=== PATIENT | female | born 1975 ===

== ENCOUNTER → 2020-12-10 13:33 | Outpatient (BNVA) | payer OTHER, SELFPAY | PROVIDERS: PCP Internal Medicine; Visit Provider Hospitalist ==

== ENCOUNTER → 2021-01-24 11:00 | Outpatient (REF) | payer OTHER, SELFPAY | LOC: HO.SL 11:00 | PROVIDERS: PCP Internal Medicine; Visit Provider Hospitalist | DX: G47.33 Obstructive sleep apnea (adult) (pediatric) (principal); G43.909 Migraine, unspecified, not intractable, without status migrainosus; I26.99 Other pulmonary embolism without acute cor pulmonale | CPT/HCPCS: 95806 ==

== ENCOUNTER → 2021-04-26 15:25 | Outpatient (BNVA) | payer OTHER, SELFPAY | PROVIDERS: PCP Internal Medicine; Visit Provider Hospitalist ==

== ENCOUNTER 2023-11-10 09:34 | Outpatient (AMB) | payer OTHER, SELFPAY ==
--- NOTE | 2023-11-10 09:40 | A.OFFVIS_ITS ---
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 Her symptoms became significantly worse with severe pleuritic chest discomfort and ended up going to the [facility] Emergency Department. There she did undergo a CT scan of the chest demonstrating multiple pulmonary nodules in the right middle right lower lung zones with pulmonary infarct as well as what appeared to be right ventricular strain. Her echocardiogram demonstrated some degree of comes certain triggers hypertrophy of the left ventricle but her RV apparently was working well. Her pulmonary pressures were not estimated. The patient initially placed on Eliquis although she had significant side effects with fatigue. Ultimately switch over to Xarelto. The Xarelto she has been getting headaches. Although she has had a history of migraines as well. As far as the blood clots is not clear the etiology. The patient denies any recent surgeries or prolonged immobilization or trauma. She did have hormonal therapy with progesterone. This was removed. Fact clear she did have COVID. The patient did have exposure to someone with COVID, but, she tested negative in the ER. She then was tested for antibiotics which are positive but, she was already vaccinated making it difficult to interpret the results. Indeed she is concerned about having lifelong anticoagulation which would be the treatment for unprovoked pulmonary emboli. The patient shortly beyond therapy for a year before start talking about adjusting her therapy. I will request records from [facility] regarding her hypercoagulable workup that she may have had as far as to continue the evaluation. In addition to that the patient has significant migraines. She also has daytime drowsiness. She uses multiple sleep aids with partial resolution of her insomnia. The patient has not had a sleep study. Therefore we will have her undergo a sleep study in order to follow her elevated [place] score of 14/24. And also hopefully if she does have sleep apnea and is treated her significant headaches will improve. Will follow-up after the sleep study. 04/26/2021 the patient is here for a pulmonary follow-up visit. Overall she feels about the same. Still having severe migraines which is very debilitating for her. She is currently working with a migraine specialist. In the meantime she did have a sleep study which was completely normal. She does not have any evidence of any sleep apnea or hypoxia at this time. However, she still has a very hard time sleeping. She has tried multiple sleep aids without any significant improvement. Will try to provide her with a alternative regimen to allow her to have affecting sleep. In the meantime which still waiting for the CTs from [facility] in order to review the images with her. We already had requested them before but it did not arrive so therefore we have called the hospital again to get The images. Once available were reviewed together. For now she continues to use the anticoagulation therapy as this will be lifelong for unprovoked clots. Patient also complains of sinus discomfort and pressure. Unfortunately she does have a blood pressure when she cannot use Sudafed. Will optimize her nasal therapy further at this time. 11/10/2023 the patient is here for a pulmonary follow-up visit. She has multiple complaints experiencing some pleuritic left-sided chest pain. The symptoms seem to be at times moderate to severe. Hard to take a deep breath in. Feels sharp in nature. In addition to that she does get some tightness sensation around the chest. She does use her rescue inhaler with some partial relief. She continues on the Xarelto for the history of blood clots. He has been tolerating the full dose. Sometimes she bruises she does not like that but she understands that she needs to take it. The patient also has been having some difficulty sleeping. She has been having some increased daytime drowsiness. She has also gained weight. [place] score is elevated 02/03. She is scheduled to undergo a sleep study through her primary care. In the meantime we are going to request additional blood work looking for etiologies for pleuritis specially with pleuritic chest pain. The patient also will maximize her respiratory therapy by adding a maintenance inhaler. After the blood work will talk about additional imaging studies. Her last CT scan of the chest was CTA back in 2020 demonstrating resolution of the PE that she had initially. [facility] Medical History (Updated 11/10/23 @ 13:24 by Trevor Rainey MD) Pleuritic chest pain Asthma Insomnia Pulmonary emboli Migraine Social History (System 02/05/23 @ 15:54 by Azalea Horton) Patient Tobacco Use Status: Never used Tobacco Review of Systems Const Reports daytime sleepiness, Reports difficulty sleeping and Reports headache(s) ENT Denies change in voice, Reports headache(s), Denies lip swelling, Denies mouth pain, Reports nasal congestion, Reports nasal discharge and Denies tongue swelling Card Denies palpitations and Reports dyspnea on exertion Resp Reports cough, Reports pain on inspiration, Reports pain with cough and Reports dyspnea on exertion GI Denies abdominal pain Musc Denies no additional complaints Neuro Denies Neuro-related abnormal movements and Reports headache(s) Psych Denies no additional complaints Endo Denies palpitations Leon/Lymph Denies easy bleeding and Denies lymphadenopathy Aller/Immun Denies lip swelling and Denies tongue swelling Physical Exam Vital Signs: Last Vital Signs Pulse 68 11/10/23 09:41 Pulse Ox 98 11/10/23 09:41 Oxygen Delivery Method Room Air 11/10/23 09:41 BMI result Body Mass Index 35.9 Const General: alert Neck Neck: Yes normal visual inspection, Yes full ROM and Yes no lymphadenopathy Chest Chest palpation & inspection: normal inspection of the chest Resp Auscultation: diminished lung sounds Cardio Rate: regular rate Rhythm: regular rhythm Heart sounds: S1 normal heart sound present and S2 normal heart sound present GI Palpation (GI): Soft to palpation and nontender Auscultation: normal bowel sounds Skin General skin exam: rashes and/or lesions noted Assessment & Plan Assessment & Plan (1) Pulmonary emboli: Code(s): I26.99 - Other pulmonary embolism without acute cor pulmonale Category: Medical Qualifiers: Acute cor pulmonale presence: without acute cor pulmonale Chronicity: chronic Pulmonary embolism type: unspecified Qualified Code(s): I27.82 - Chronic pulmonary embolism Plan: the patient has an unprovoked pulmonary emboli therefore the treatment would include lifelong anticoagulation. It is not clear if this was COVID related as her PCR test was negative. The patient does need to have a full hypercoagulable workup although I do not have the work of the may have been already done at [facility]. (2) Insomnia: Code(s): G47.00 - Insomnia, unspecified Category: Medical Qualifiers: Insomnia type: primary Qualified Code(s): F51.01 - Primary insomnia (3) Asthma: Code(s): J45.909 - Unspecified asthma, uncomplicated Category: Medical Qualifiers: Asthma severity: moderate Asthma persistence: persistent Asthma complication type: uncomplicated Qualified Code(s): J45.40 - Moderate persistent asthma, uncomplicated (4) Pleuritic chest pain: Code(s): R07.81 - Pleurodynia Category: Medical Plan start Symbicort DENA as needed start Ambien bloodwork continue anticoagulation ?low dose Xorelto sleep study ordered follow-up in 2- 3 months Orders: Orders Cyclic Citrullinated Peptide Today G43.919 - Migraine, unspecified, intractable, without status migrainosus, I27.82 - Chronic pulmonary embolism, R07.81 - Pleurodynia ANSHU Reflex Titer and Pattern Today G43.919 - Migraine, unspecified, intractable, without status migrainosus, I27.82 - Chronic pulmonary embolism, R07.81 - Pleurodynia Resp Allergy Profile Region I Today G43.919 - Migraine, unspecified, intractable, without status migrainosus, I27.82 - Chronic pulmonary embolism, R07.81 - Pleurodynia, R91.1 - Solitary pulmonary nodule Scleroderma 70 Antibody Today G43.919 - Migraine, unspecified, intractable, without status migrainosus, I27.82 - Chronic pulmonary embolism, R07.81 - Pleurodynia Troponin-I High Sensitivity Today G43.919 - Migraine, unspecified, intractable, without status migrainosus, I27.82 - Chronic pulmonary embolism, R07.81 - Pleurodynia Erythrocyte Sedimentation Rate Today G43.919 - Migraine, unspecified, intractable, without status migrainosus, I27.82 - Chronic pulmonary embolism, R07.81 - Pleurodynia Complete Blood Count Auto Diff Today G43.919 - Migraine, unspecified, intractable, without status migrainosus, I27.82 - Chronic pulmonary embolism, R07.81 - Pleurodynia Basic Metabolic Panel Today G43.919 - Migraine, unspecified, intractable, without status migrainosus, I27.82 - Chronic pulmonary embolism, R07.81 - Pleurodynia Angiotensin Converting Enzyme Today G43.919 - Migraine, unspecified, intractable, without status migrainosus, I27.82 - Chronic pulmonary embolism, R07.81 - Pleurodynia Immunoglobulin E Today G43.919 - Migraine, unspecified, intractable, without status migrainosus, I27.82 - Chronic pulmonary embolism, R07.81 - Pleurodynia Sjogren's Antibodies Today G43.919 - Migraine, unspecified, intractable, without status migrainosus, I27.82 - Chronic pulmonary embolism, R07.81 - Pleurodynia D Dimer High Sensitivity Today G43.919 - Migraine, unspecified, intractable, without status migrainosus, I27.82 - Chronic pulmonary embolism, R07.81 - Pleurodynia Medications: New budesonide-formoterol 160-4.5 mcg/actuation (Symbicort) 2 puffs inhalation BID 10.2 grams 11RF 30 days J44.89 - Other specified chronic obstructive pulmonary disease Refilled zolpidem 10 mg PO BEDTIME PRN 30 tabs 3RF sleep 30 days Coding Level of Care Code Est Pt Level 4 (58244) Diagnoses Chronic pulmonary embolism without acute cor pulmonale, unspecified pulmonary embolism type I27.82 Acute cor pulmonale presence: without acute cor pulmonale Chronicity: chronic Pulmonary embolism type: unspecified Primary insomnia F51.01 Insomnia type: primary Moderate persistent asthma without complication J45.40 Asthma severity: moderate Asthma persistence: persistent Asthma complication type: uncomplicated Pleuritic chest pain R07.81 Time Spent (min) 20
[2023-11-10 09:41] VITALS: PULSE 68; O2SAT 98; BMI 35.9
== END 2023-11-10 10:07 | disposition home or self-care (01) ==
PROVIDERS: PCP Internal Medicine; Visit Provider Hospitalist
DX: I27.82 Chronic pulmonary embolism (principal); F51.01 Primary insomnia; J45.40 Moderate persistent asthma, uncomplicated; R07.81 Pleurodynia
CPT/HCPCS: 99214

== ENCOUNTER → 2023-11-10 09:34 | Outpatient (BNVA) | payer OTHER, SELFPAY | PROVIDERS: PCP Internal Medicine; Visit Provider Hospitalist | DX: I27.82 Chronic pulmonary embolism (principal); F51.01 Primary insomnia; J45.40 Moderate persistent asthma, uncomplicated; R07.81 Pleurodynia; Z79.01 Long term (current) use of anticoagulants | CPT/HCPCS: 99212 ==

== ENCOUNTER 2024-02-01 13:00 | Outpatient (REF) | payer OTHER, SELFPAY ==
[2024-02-01 13:29] LABS: MANUAL DIFF FLAG NO
[2024-02-01 13:42] LABS: D Dimer High Sensitivity 153 NG/ML
[2024-02-01 14:04] LABS: Basophils Percent Auto 0.1 % (0-2); Eosinophils Absolute Auto 0.1 X10*3/uL (0.0-0.4); Eosinophils Percent Auto 0.9 % (0-4); Hematocrit 41.8 % (37.0-47.0); Hemoglobin 13.8 g/dl (12.0-16.0); Imm Gran Abs Auto 0.03 X10*3/uL (0.00-0.03); Imm Gran Pct Auto 0.3 % (0.0-0.4); Lymphocytes Absolute Auto 2.8 X10*3/uL (1.2-4.9); Mean Corpuscular Hemoglobin 29.7 pg (27.0-33.0); Mean Corpuscular Volume 89.9 fL (80.0-98.0); Mean Platelet Volume 10.8 fL (9.4-12.3); Monocytes Percent Auto 10.9 % (2-11); Neutrophils Absolute Auto 5.2 x10*3/uL (2.0-8.3); Neutrophils Percent Auto 56.8 % (45-73); Platelet Count 185 X10*3/uL (160-400); Red Blood Count 4.65 X10*6/uL (4.20-5.50); Red Cell Distribution Width 14.6 % (11.0-16.0); White Blood Count 9.1 X10*3/uL (4.8-10.8)
[2024-02-01 14:55] LABS: Erythrocyte Sedimentation Rate 6 MM/HR (0-20)
[2024-02-01 15:08] LABS: Anion Gap 11 (12-20); Blood Urea Nitrogen 11 mg/dL (9-16); Calcium 8.7 mg/dL (8.4-10.2); Carbon Dioxide 22 mmol/L (22-29); Chloride 112 mmol/L (96-108); Estimated Glomerular Filt Rate 52; Glucose Random 96 mg/dL (60-115); Potassium 3.9 mmol/L (3.3-5.1); Sodium 141 mmol/L (135-145)
[2024-02-01 15:20] LABS: Troponin-I High Sensitivity < 2.7 ng/L (<3.5-17.0)
[2024-02-02 13:57] LABS: Class Alternaria alternata 0; Class Aspergillus fumigatus 0; Class Bermuda Grass 0; Class Birch 0; Class Cat Dander 0; Class Cladosporium herbarum 0; Class Cockroach 0/1; Class Common Ragweed 4; Class Cottonwood 0; Class Derm. pterony 0/1; Class Dermatophagoides farinae 0/1; Class Dog Dander 0; Class Elm 0/1; Class Maple Box Elder 1; Class Mountain Cedar 0; Class Mouse Urine Protein 0; Class Mugwort 0; Class Oak 0; Class Penicillium crysogenum 0; Class Rough Pigweed 0; Class Sheep Sorrel 0; Class Sycamore 0; Class Timothy Grass 0; Class Walnut Tree 0/1; Class White Ash 1; Class White Mulberry 0; D001 IgE D pteronyssinus 0.13 kU/L; D002 - IgE D farinae 0.13 kU/L; E001 - IgE Cat Dander <0.10 kU/L; E005 - IgE Dog Dander <0.10 kU/L; E072-IgE Mouse Urine <0.10 kU/L; G002 IgE Bermuda Grass <0.10 kU/L; G006 - IgE Timothy Grass <0.10 kU/L; I006-IgE Cockroach, German 0.14 kU/L; Immunoglobulin E 106 kU/L (<OR=114); M001 IgE Penicillium chrysogen <0.10 kU/L; M002 - IgE Cladosporium herbar <0.10 kU/L; M003 - IgE Aspergillus fumigat <0.10 kU/L; M006 - IgE Alternaria alternat <0.10 kU/L; T001 IgE Maple/Box Elder 0.69 kU/L; T003 IgE Common Silver Birch <0.10 kU/L; T006 - IgE Cedar, Mountain <0.10 kU/L; T007 - IgE Oak, White <0.10 kU/L; T008 IgE Elm, American 0.18 kU/L; T010 - IgE Walnut 0.13 kU/L; T011 - IgE Maple Leaf Sycamore <0.10 kU/L; T014 - IgE Cottonwood <0.10 kU/L; T015 - IgE Ash, White 0.39 kU/L; T070 - IgE White Mulberry <0.10 kU/L; W006 - IgE Mugwort <0.10 kU/L; W014 IgE Pigweed, Common <0.10 kU/L; W018 IgE Sheep Sorrel <0.10 kU/L
[2024-02-02 14:19] LABS: Antibody to SS-A Antigen <1.0 NEG AI (<1.0 NEG); Antibody to SS-B Antigen <1.0 NEG AI (<1.0 NEG); Scleroderma 70 Antibody <1.0 NEG AI (<1.0 NEG)
[2024-02-09 03:54] LABS: Angiotensin Converting Enzyme 22.6 U/L (9-67)
[2024-02-11 10:50] LABS: Anti Nuclear Antibody Screen NEGATIVE
[2024-02-16 10:38] LABS: Cyclic Citrullinated Peptide <16
== END 2024-02-01 13:01 | disposition home or self-care (01) ==
LOC: HO.LAB 13:00
PROVIDERS: PCP Internal Medicine; Visit Provider Hospitalist
DX: R07.81 Pleurodynia (principal); I27.82 Chronic pulmonary embolism; G43.919 Migraine, unspecified, intractable, without status migrainosus; R91.1 Solitary pulmonary nodule
CPT/HCPCS: 36415; 80048; 82164; 82785; 84484; 85025; 85379; 85652; 86003; 86038; 86200; 86235

== ENCOUNTER 2024-02-16 08:23 | Outpatient (AMB) | payer OTHER, SELFPAY ==
[2024-02-16 08:28] VITALS: BP 130/72; PULSE 97; O2SAT 100
--- NOTE | 2024-02-16 08:28 | MHC.OFFVIS ---
Vital Signs 02/16/24 08:28 Weight 211 lb 10.3 oz BP 130/72 Blood Pressure Location Lt brachial Position Sitting Pulse 97 Pulse Source Pulse Oximeter Pulse Oximetry (%) 100 Oxygen Delivery Method Room Air Intake Visit Reasons: asthma Allergies No Known Allergies Allergy (Unverified 02/16/24 08:31) Medication List - Last Reconciled 02/16/24 by Ila Mina LPN azelastine intranasal budesonide-formoterol 160-4.5 mcg/actuation (Symbicort) 2 puffs inhalation BID 30 days duloxetine 60 mg PO DAILY fluticasone propionate 50 mcg/actuation 2 sprays intranasal BID PRN gabapentin 300 mg PO TID hydrochlorothiazide 25 mg PO DAILY metoprolol succinate ER 100 mg PO DAILY rimegepant (Nurtec ODT) 75 mg PO Q OTHER DAY rivaroxaban (Xarelto) 20 mg PO DAILY topiramate 50 mg PO BID trazodone 100 mg PO BEDTIME valacyclovir mg PO verapamil ER 300 mg PO BEDTIME zolpidem 10 mg PO BEDTIME PRN 30 days HPI Comments Details: The patient is a 48-year-old woman with a known history of migraines who apparently was in her usual state health until she started developing some intermittent right-sided chest discomfort the month of March and April. Her symptoms became significantly worse with severe pleuritic chest discomfort and ended up going to the [facility] Emergency Department. There she did undergo a CT scan of the chest demonstrating multiple pulmonary nodules in the right middle right lower lung zones with pulmonary infarct as well as what appeared to be right ventricular strain. Her echocardiogram demonstrated some degree of comes certain triggers hypertrophy of the left ventricle but her RV apparently was working well. Her pulmonary pressures were not estimated. The patient initially placed on Eliquis although she had significant side effects with fatigue. Ultimately switch over to Xarelto. The Xarelto she has been getting headaches. Although she has had a history of migraines as well. As far as the blood clots is not clear the etiology. The patient denies any recent surgeries or prolonged immobilization or trauma. She did have hormonal therapy with progesterone. This was removed. Fact clear she did have COVID. The patient did have exposure to someone with COVID, but, she tested negative in the ER. She then was tested for antibiotics which are positive but, she was already vaccinated making it difficult to interpret the results. Indeed she is concerned about having lifelong anticoagulation which would be the treatment for unprovoked pulmonary emboli. The patient shortly beyond therapy for a year before start talking about adjusting her therapy. I will request records from [facility] regarding her hypercoagulable workup that she may have had as far as to continue the evaluation. In addition to that the patient has significant migraines. She also has daytime drowsiness. She uses multiple sleep aids with partial resolution of her insomnia. The patient has not had a sleep study. Therefore we will have her undergo a sleep study in order to follow her elevated [place] score of 14/24. And also hopefully if she does have sleep apnea and is treated her significant headaches will improve. Will follow-up after the sleep study. 04/26/2021 the patient is here for a pulmonary follow-up visit. Overall she feels about the same. Still having severe migraines which is very debilitating for her. She is currently working with a migraine specialist. In the meantime she did have a sleep study which was completely normal. She does not have any evidence of any sleep apnea or hypoxia at this time. However, she still has a very hard time sleeping. She has tried multiple sleep aids without any significant improvement. Will try to provide her with a alternative regimen to allow her to have affecting sleep. In the meantime which still waiting for the CTs from [facility] in order to review the images with her. We already had requested them before but it did not arrive so therefore we have called the hospital again to get The images. Once available were reviewed together. For now she continues to use the anticoagulation therapy as this will be lifelong for unprovoked clots. Patient also complains of sinus discomfort and pressure. Unfortunately she does have a blood pressure when she cannot use Sudafed. Will optimize her nasal therapy further at this time. 11/10/2023 the patient is here for a pulmonary follow-up visit. She has multiple complaints experiencing some pleuritic left-sided chest pain. The symptoms seem to be at times moderate to severe. Hard to take a deep breath in. Feels sharp in nature. In addition to that she does get some tightness sensation around the chest. She does use her rescue inhaler with some partial relief. She continues on the Xarelto for the history of blood clots. He has been tolerating the full dose. Sometimes she bruises she does not like that but she understands that she needs to take it. The patient also has been having some difficulty sleeping. She has been having some increased daytime drowsiness. She has also gained weight. [place] score is elevated 10/24. She is scheduled to undergo a sleep study through her primary care. In the meantime we are going to request additional blood work looking for etiologies for pleuritis specially with pleuritic chest pain. The patient also will maximize her respiratory therapy by adding a maintenance inhaler. After the blood work will talk about additional imaging studies. Her last CT scan of the chest was CTA back in 2020 demonstrating resolution of the PE that she had initially. 02/16/2024 the patient is here for a follow-up ER visit. Apparently she was in usual state health until for the last 4 weeks when she started developing cramping of her lower extremities. Reasons having some chest discomfort as well. She is also having more shortness of breath and tachycardia. She did talk to her primary care who ordered an ultrasound of her leg. Demonstrating a DVT of her right lower extremity. The patient was placed on a loading dose Xarelto. Apparently prior to that she had come off the Xarelto for a dental procedure. Unfortunately was prolonged because she was going to have another dental procedure. Therefore she spent some time off the Xarelto altogether. Prior to that she was on low-dose. At this point she is on a loading dose of 50 mg twice a day. She will likely go down to 20 mg daily after the 21 days. She will follow-up with her PCP for that. During the office visit we did go for a walking oximetry. The patient's pulse ox was excellent under%. However, heart rate was up to 120 beats per minute with minimal activity. She was visibly dyspneic with dyspnea score of 6/10. Will go ahead and request a CTA with suspicion that she could have had a subacute PE in addition to that we check an echocardiogram to make sure she does not have any pulmonary hypertension due to the PE. She will continue with Xarelto for now. The patient understands that if she is ever going to need a procedures going to have to bridge with Lovenox. Will talk about that further. The patient also will get a repeat ultrasound of the leg in about 6-8 weeks to make sure the cause of gone. For now any elective procedures be on hold. If she needs any semi elective procedures done prior to the clots been gone she can always call and we can work around. She is going to continue with her inhalers. She patient does feel some chest tightness. She is also having a cough. I will send her a Z-Neo to make sure we can improve any evidence of bronchitis. [facility] Medical History (Updated 02/16/24 @ 22:20 by Trevor Rainey MD) DVT (deep venous thrombosis) Pleuritic chest pain Asthma Insomnia Pulmonary emboli Migraine Social History (System 02/05/23 @ 15:54 by Azalea Horton) Patient Tobacco Use Status: Never used Tobacco Review of Systems Const Reports daytime sleepiness and Reports difficulty sleeping ENT Denies change in voice, Denies lip swelling, Denies mouth pain, Reports nasal congestion, Reports nasal discharge and Denies tongue swelling Card Reports chest pain, Reports palpitations and Reports dyspnea on exertion Resp Reports cough, Reports pain on inspiration, Reports pain with cough and Reports dyspnea on exertion GI Denies abdominal pain Musc Denies no additional complaints and Reports muscle cramps Neuro Denies Neuro-related abnormal movements Psych Denies no additional complaints and Reports anxiety Endo Reports palpitations Leon/Lymph Denies easy bleeding and Denies lymphadenopathy Aller/Immun Denies lip swelling and Denies tongue swelling Physical Exam Vital Signs: Last Vital Signs Pulse 97 02/16/24 08:28 BP 130/72 02/16/24 08:28 Pulse Ox 100 02/16/24 08:28 Oxygen Delivery Method Room Air 02/16/24 08:28 Const General: alert Neck Neck: Yes normal visual inspection, Yes full ROM and Yes no lymphadenopathy Chest Chest palpation & inspection: normal inspection of the chest Resp Auscultation: diminished lung sounds Cardio Rate: tachycardic Rhythm: regular rhythm Heart sounds: S1 normal heart sound present and S2 normal heart sound present GI Palpation (GI): Soft to palpation and nontender Auscultation: normal bowel sounds Skin General skin exam: rashes and/or lesions noted Results Reviewed Results Reviewed: LE doppler with +DVT Assessment & Plan Assessment & Plan (1) Pulmonary emboli: Code(s): I26.99 - Other pulmonary embolism without acute cor pulmonale Category: Medical Qualifiers: Acute cor pulmonale presence: without acute cor pulmonale Chronicity: chronic Pulmonary embolism type: unspecified Qualified Code(s): I27.82 - Chronic pulmonary embolism Plan: the patient has an unprovoked pulmonary emboli therefore the treatment would include lifelong anticoagulation. It is not clear if this was COVID related as her PCR test was negative. The patient does need to have a full hypercoagulable workup although I do not have the work of the may have been already done at [facility]. (2) Insomnia: Code(s): G47.00 - Insomnia, unspecified Category: Medical Qualifiers: Insomnia type: primary Qualified Code(s): F51.01 - Primary insomnia (3) Asthma: Code(s): J45.909 - Unspecified asthma, uncomplicated Category: Medical Qualifiers: Asthma complication type: uncomplicated Asthma persistence: persistent Asthma severity: moderate Qualified Code(s): J45.40 - Moderate persistent asthma, uncomplicated (4) Pleuritic chest pain: Code(s): R07.81 - Pleurodynia Category: Medical (5) DVT (deep venous thrombosis): Code(s): I82.409 - Acute embolism and thrombosis of unspecified deep veins of unspecified lower extremity Category: Medical Qualifiers: DVT location: lower extremity Affected thrombotic vein of extremity: peroneal Chronicity: acute Laterality: right Qualified Code(s): I82.451 - Acute embolism and thrombosis of right peroneal vein Plan continue Xorelto loading dose ECHO CTA LE doppler R in 6-8 weeks Symbicort continue Ambien sleep study ordered follow-up in 2- 3 weeks Orders: Orders US venous duplex LE RT 6 Weeks I82.409 - Acute embolism and thrombosis of unspecified deep veins of unspecified lower extremity CA echo transthoracic complete Today I27.20 - Pulmonary hypertension, unspecified CT angio chest PE protocol Today I82.409 - Acute embolism and thrombosis of unspecified deep veins of unspecified lower extremity, R07.81 - Pleurodynia Medications: New azithromycin 500 mg PO DAILY 3 tabs 0RF 3 days Refilled zolpidem 10 mg PO BEDTIME PRN 30 tabs 3RF sleep 30 days Coding Level of Care Code Est Pt Level 5 (12598) Diagnoses Chronic pulmonary embolism without acute cor pulmonale, unspecified pulmonary embolism type I27.82 Acute cor pulmonale presence: without acute cor pulmonale Chronicity: chronic Pulmonary embolism type: unspecified Primary insomnia F51.01 Insomnia type: primary Moderate persistent asthma without complication J45.40 Asthma complication type: uncomplicated Asthma persistence: persistent Asthma severity: moderate Pleuritic chest pain R07.81 Acute deep vein thrombosis (DVT) of right peroneal vein I82.451 DVT location: lower extremity Affected thrombotic vein of extremity: peroneal Chronicity: acute Laterality: right Time Spent (min) 40
== END 2024-02-16 09:05 | disposition home or self-care (01) ==
LOC: HO.HPS 08:23
PROVIDERS: PCP Internal Medicine; Visit Provider Hospitalist
DX: J45.40 Moderate persistent asthma, uncomplicated (principal); I27.82 Chronic pulmonary embolism; F51.01 Primary insomnia; R07.81 Pleurodynia; I82.451 Acute embolism and thrombosis of right peroneal vein
CPT/HCPCS: 99215

== ENCOUNTER → 2024-02-16 08:23 | Outpatient (BNVA) | payer OTHER, SELFPAY | PROVIDERS: PCP Internal Medicine; Visit Provider Hospitalist | DX: R07.81 Pleurodynia (principal); J45.40 Moderate persistent asthma, uncomplicated; I27.82 Chronic pulmonary embolism; I82.451 Acute embolism and thrombosis of right peroneal vein; F51.01 Primary insomnia | CPT/HCPCS: 99212 ==

== ENCOUNTER → 2024-02-17 09:06 | Outpatient (REF) | payer OTHER, SELFPAY ==
--- NOTE | ~2024-02-17 | CT_ITS ---
EXAMINATION: CT angio chest PE protocol CLINICAL INFORMATION: Acute embolism and thrombosis of unspecified deep veins COMPARISON: No pertinent prior studies are available for comparison. TECHNIQUE: Prior to contrast administration, noncontrast localization images were obtained. Subsequently, multidetector volumetric imaging was performed through the chest following the administration of 65 mL Omnipaque 350 intravenous contrast. No contrast reaction reported Sagittal, coronal, and MIP oblique sagittal reformatted images were obtained on the CT workstation, uploaded to PACS, and reviewed. This CT examination was performed using dose optimization techniques as appropriate, variously including the following: * Automated exposure control * Adjustment of mA and/or kV according to patient size (this includes techniques or standardized protocols for targeted exams where dose is matched to indication/reason for exam; i.e. extremities or head) Use of iterative reconstruction technique Total exam dose-length product 139 mGy-cm FINDINGS: QUALITY OF STUDY/CONTRAST BOLUS: Satisfactory. PULMONARY ARTERIES: No central or segmental pulmonary emboli. THORACIC AORTA: No aneurysm or dissection. LUNG: Central airways are patent. Posterior left lower lobe 0.6 cm pulmonary nodule (series #7 axial image 279). Calcified granuloma in the right upper lobe. Dependent subsegmental atelectasis bilaterally. No focal consolidation or mass. No pleural effusion or pneumothorax. MEDIASTINUM: Cardiomegaly without pericardial effusion. No hilar or mediastinal lymphadenopathy. No evidence of septal bowing or right heart strain. CHEST WALL/AXILLA: No axillary or internal mammary lymphadenopathy. VISUALIZED ABDOMEN: Gastric sutures partially visualized. No reflux of contrast into the hepatic veins to suggest increased right heart pressure. OSSEOUS STRUCTURES: No suspicious sclerotic or lytic bone lesions are identified. CT/CT angio chest PE protocol IMPRESSION: 1. No evidence of pulmonary embolism. 2. Posterior left lower lobe 0.6 cm pulmonary nodule. Per the 2017 revised Fleischner Society guidelines, non-contrast chest CT at 6-12 months is recommended. If the nodule is stable at time of repeat CT, then future CT at 18-24 months (from today's scan) is considered optional for low-risk patients, but is recommended for high-risk patients. 3. Cardiomegaly. VTE: negative. Electronically signed by: Shruti Hernandez DO 02/17/2024 05:28 PM [facility] [place]
--- NOTE | 2024-02-17 09:09 | CA_ITS ---
Transthoracic Echocardiogram Patient (Last, First, Middle): Kenia Harman, Gender: Female Date of : 1975 Age: 48 Procedure Date: 02/17/2024 Procedure Type: Transthoracic Echocardiogram Location: OP Height: 162.56 cm Weight: 95.26 kg BSA: 2.00 m2 Heart Rate: bpm BP: 136 / 82 mmHg Quality Analyst: GABRIELA Referring MD: Trevor Rainey MD Story Reader: Declan Bethea MD Symptoms: I27.20 - Pulmonary hypertension, unspecified Study Quality: Adequate ECG Rhythm: Sinus Conclusions: - Essentially normal study Findings Left Ventricle Normal left ventricular size, thickness, and systolic function. The visually estimated ejection fraction is between 60-65%. Spectral Doppler is indicative of a normal filling pattern. Right Ventricle Normal right ventricular cavity size and systolic function. Atria Both atria are normal in size. Interatrial shunt cannot be excluded. Aortic Valve The aortic valve structure and function is likely normal. There is no aortic valve stenosis. There is no aortic valve regurgitation. Mitral Valve Normal mitral valve structure and function. There is trace mitral valve regurgitation. There is no mitral valve stenosis. Pulmonic Valve The pulmonic valve was not well visualized. Tricuspid Valve Likely normal tricuspid valve structure and function. There is trace tricuspid valve regurgitation. The right ventricular systolic pressure is normal. The right ventricular systolic pressure is 23 mmHg. Normal right atrial pressure. There is no evidence of pulmonary hypertension. Great Vessels All visible segments of the aorta are normal in size. The pulmonary artery was not well visualized. There is no dilatation of the ascending aorta measuring 3.20 cm. Venous The inferior vena cava is normal in size and collapses greater than 50% with inspiration. Pericardium/Pleural There is no evidence of pericardial effusion. Prior Study Comparison No prior study available for comparison. Measurements 2D Linear Measurements IVSd: 0.99 0.6-0.9/0.6-1.0 cm LVIDd: 4.48 3.9-5.3/4.2-5.9 cm LVIDd Index: 2.24 2.4-3.2/2.2-3.1 cm/m2 LVIDs: 2.82 2.0-3.6 cm LVPWd: 0.83 0.7-1.1 cm LA Diam: 3.60 2.7-3.8/3.0-4.0 cm LAIDs Index: 1.80 1.5-2.3 cm/m2 LV Mass: 167.28 67-162/88-224 g LV Mass Index: 83.64 43-95/49-115 g/m2 LVOT Diam: 2.00 3.0+(-)1.3 cm 2D Systolic Function EF 4C: 57.40 >55% EF 2C: 69.80 >55% EF BiP: 65.20 >55% Mitral Valve MV Pk E: 0.75 MV PK A: 0.63 MV Decel Time: 255.00 E/A: 1.20 E'Lateral: 9.03 E'Medial: 7.94 E/E' Med: 9.50 E/E' Lat: 8.30 PHT: 75.00 MVA PHT: 2.93 Decel [place]: 2.95 Aortic Valve AoV Pk Joe: 1.44 AoV Mn Joe: 0.95 AoV VTI: 0.28 AoV Pk Grad: 8.00 Aov Mn Grad: 4.00 KEELEY Cont.VTI: 2.66 LVOT LVOT Pk Joe: 1.17 LVOT Mn Joe: 0.77 LVOT VTI: 0.24 LVOT Pk Grad: 5.00 LVOT Mn Grad: 3.00 LVOT Diam: 2.00 LVOT Area: 3.14 Diastolic Function MV Pk E: 0.75 MV Pk A: 0.63 E/A: 1.20 E'Medial: 7.94 E/E' Med: 9.50 E' Laterial: 9.03 E/E' Lat: 8.30 Right Ventricle TAPSE (mm): 26.30 TVS' Joe: 13.10 Tricuspid Valve TR Pk Joe: 1.94 TR Pk Grad: 15.00 RA Press: 8.00 RVSP: 23.00 Great Vessels Aorta Sinus of Valsalva: 3.16 2.0-3.[address] [place]: 2.52 1.7-3.4 cm Ao Asc: 3.20 2.1-3.4 cm Ao Arch: 2.70 Updated in Other Vendor System with Status of Final Declan Bethea MD electronically signed on 02/18/2024 9:17:18 AM with status of Final
[2024-02-17] MEDS: iohexoL 350 MG/ML 75 ML INFUS..BTL 65 ML IV (10:54)
== END ==
LOC: HO.CARD 09:06
PROVIDERS: PCP Internal Medicine; Visit Provider Hospitalist
DX: I27.20 Pulmonary hypertension, unspecified (principal); I82.409 Acute embolism and thrombosis of unspecified deep veins of unspecified lower extremity; R07.81 Pleurodynia
CPT/HCPCS: 71275; 93306; Q9967

== ENCOUNTER → 2024-02-17 09:09 | Outpatient (BNV) | payer OTHER, SELFPAY | PROVIDERS: PCP Internal Medicine; Visit Provider Internal Medicine Cardiovascular Disease | DX: I27.20 Pulmonary hypertension, unspecified (principal) | CPT/HCPCS: 93306 ==

== ENCOUNTER 2024-03-03 09:31 | Outpatient (AMB) | payer OTHER, SELFPAY ==
--- NOTE | 2024-03-03 09:33 | A.OFFVIS_ITS ---
Vital Signs 03/03/24 09:34 Height 5 ft 4 in Weight 212 lb 11.937 oz BMI 36.5 BP 114/72 Blood Pressure Location Rt brachial Position Sitting Pulse 75 Pulse Source Pulse Oximeter Pulse Oximetry (%) 100 Oxygen Delivery Method Room Air Intake Visit Reasons: Asthma Allergies No Known Allergies Allergy (Unverified 03/03/24 09:36) HPI Comments Details: The patient is a 48-year-old woman with a known history of migraines who apparently was in her usual state health until she started developing some intermittent right-sided chest discomfort the month of March and April. Her symptoms became significantly worse with severe pleuritic chest discomfort and ended up going to the [facility] Emergency Department. There she did undergo a CT scan of the chest demonstrating multiple pulmonary nodules in the right middle right lower lung zones with pulmonary infarct as well as what appeared to be right ventricular strain. Her echocardiogram demonstrated some degree of comes certain triggers hypertrophy of the left ventricle but her RV apparently was working well. Her pulmonary pressures were not estimated. The patient initially placed on Eliquis although she had significant side effects with fatigue. Ultimately switch over to Xarelto. The Xarelto she has been getting headaches. Although she has had a history of migraines as well. As far as the blood clots is not clear the etiology. The patient denies any recent surgeries or prolonged immobilization or trauma. She did have hormonal therapy with progesterone. This was removed. Fact clear she did have COVID. The patient did have exposure to someone with COVID, but, she tested negative in the ER. She then was tested for antibiotics which are positive but, she was already vaccinated making it difficult to interpret the results. Indeed she is concerned about having lifelong anticoagulation which would be the treatment for unprovoked pulmonary emboli. The patient shortly beyond therapy for a year before start talking about adjusting her therapy. I will request records from [facility] regarding her hypercoagulable workup that she may have had as far as to continue the evaluation. In addition to that the patient has significant migraines. She also has daytime drowsiness. She uses multiple sleep aids with partial resolution of her insomnia. The patient has not had a sleep study. Therefore we will have her undergo a sleep study in order to follow her elevated Winter score of 14/24. And also hopefully if she does have sleep apnea and is treated her significant headaches will improve. Will follow-up after the sleep study. 04/26/2021 the patient is here for a pulmonary follow-up visit. Overall she feels about the same. Still having severe migraines which is very debilitating for her. She is currently working with a migraine specialist. In the meantime she did have a sleep study which was completely normal. She does not have any evidence of any sleep apnea or hypoxia at this time. However, she still has a very hard time sleeping. She has tried multiple sleep aids without any significant improvement. Will try to provide her with a alternative regimen to allow her to have affecting sleep. In the meantime which still waiting for the CTs from [facility] in order to review the images with her. We already had requested them before but it did not arrive so therefore we have called the hospital again to get The images. Once available were reviewed together. For now she continues to use the anticoagulation therapy as this will be lifelong for unprovoked clots. Patient also complains of sinus discomfort and pressure. Unfortunately she does have a blood pressure when she cannot use Sudafed. Will optimize her nasal therapy further at this time. 11/10/2023 the patient is here for a pulmonary follow-up visit. She has multiple complaints experiencing some pleuritic left-sided chest pain. The symptoms seem to be at times moderate to severe. Hard to take a deep breath in. Feels sharp in nature. In addition to that she does get some tightness sensation around the chest. She does use her rescue inhaler with some partial relief. She continues on the Xarelto for the history of blood clots. He has been tolerating the full dose. Sometimes she bruises she does not like that but she understands that she needs to take it. The patient also has been having some difficulty sleeping. She has been having some increased daytime drowsiness. She has also gained weight. Winter score is elevated 02/03. She is scheduled to undergo a sleep study through her primary care. In the meantime we are going to request additional blood work looking for etiologies for pleuritis specially with pleuritic chest pain. The patient also will maximize her respiratory therapy by adding a maintenance inhaler. After the blood work will talk about additional imaging studies. Her last CT scan of the chest was CTA back in 2020 demonstrating resolution of the PE that she had initially. 02/16/2024 the patient is here for a follow-up ER visit. Apparently she was in usual state health until for the last 4 weeks when she started developing cramping of her lower extremities. Reasons having some chest discomfort as well. She is also having more shortness of breath and tachycardia. She did talk to her primary care who ordered an ultrasound of her leg. Demonstrating a DVT of her right lower extremity. The patient was placed on a loading dose Xarelto. Apparently prior to that she had come off the Xarelto for a dental procedure. Unfortunately was prolonged because she was going to have another dental procedure. Therefore she spent some time off the Xarelto altogether. Prior to that she was on low-dose. At this point she is on a loading dose of 50 mg twice a day. She will likely go down to 20 mg daily after the 21 days. She will follow-up with her PCP for that. During the office visit we did go for a walking oximetry. The patient's pulse ox was excellent under%. However, heart rate was up to 120 beats per minute with minimal activity. She was visibly dyspneic with dyspnea score of 6/10. Will go ahead and request a CTA with suspicion that she could have had a subacute PE in addition to that we check an echocardiogram to make sure she does not have any pulmonary hypertension due to the PE. She will continue with Xarelto for now. The patient understands that if she is ever going to need a procedures going to have to bridge with Lovenox. Will talk about that further. The patient also will get a repeat ultrasound of the leg in about 6-8 weeks to make sure the cause of gone. For now any elective procedures be on hold. If she needs any semi elective procedures done prior to the clots been gone she can always call and we can work around. She is going to continue with her inhalers. She patient does feel some chest tightness. She is also having a cough. I will send her a Z-Neo to make sure we can improve any evidence of bronchitis. 03/03/2024 the patient is here for a pulmonary follow-up visit. The patient overall is feeling a little better although she still having dyspnea on exertion. She did have an echocardiogram which is reassuring no evidence of any pulmonary hypertension. She also had a CTA. No definitive evidence of pulmonar y emboli although the patient did have a irregular pleural-based density on the right mid lung area this indeed could be a small pulmonary infarct or inflammation. She also has evidence of ground-glass opacities bilaterally explain her shortness of breath. Will go ahead and treat her with a low-dose steroids seem this will help her in addition to that she is going to drop her Diamox from twice a day to once a day since it can affect her acid-base status and therefore could worsen her respiratory drive. In addition to that will give her some Lasix for 3 days to try to help her fluid status. She still awaiting her sleep study. Will follow-up in 6-8 weeks. She will continue with the Xarelto. [facility] Medical History (Updated 02/16/24 @ 22:20 by Trevor Rainey MD) DVT (deep venous thrombosis) Pleuritic chest pain Asthma Insomnia Pulmonary emboli Migraine Social History (System 02/05/23 @ 15:54 by Azalea Horton) Patient Tobacco Use Status: Never used Tobacco Review of Systems Const Reports daytime sleepiness and Reports difficulty sleeping ENT Denies change in voice, Denies lip swelling, Denies mouth pain, Reports nasal congestion, Reports nasal discharge and Denies tongue swelling Card Denies chest pain, Denies palpitations and Reports dyspnea on exertion Resp Reports cough, Reports pain on inspiration, Reports pain with cough and Reports dyspnea on exertion GI Denies abdominal pain Musc Denies no additional complaints and Reports muscle cramps Neuro Denies Neuro-related abnormal movements Psych Denies no additional complaints and Reports anxiety Endo Denies palpitations Leon/Lymph Denies easy bleeding and Denies lymphadenopathy Aller/Immun Denies lip swelling and Denies tongue swelling Physical Exam Vital Signs: Last Vital Signs Pulse 75 03/03/24 09:34 BP 114/72 03/03/24 09:34 Pulse Ox 100 03/03/24 09:34 Oxygen Delivery Method Room Air 03/03/24 09:34 BMI result Body Mass Index 36.5 Const General: alert Neck Neck: Yes normal visual inspection, Yes full ROM and Yes no lymphadenopathy Chest Chest palpation & inspection: normal inspection of the chest Resp Auscultation: diminished lung sounds Cardio Rate: regular rate Rhythm: regular rhythm Heart sounds: S1 normal heart sound present and S2 normal heart sound present GI Palpation (GI): Soft to palpation and nontender Auscultation: normal bowel sounds Skin General skin exam: rashes and/or lesions noted Results Reviewed Results Reviewed: [address] [address] [address] Scan Report Signed Patient: Kenia Harman MR#: [id number] : 1975 Acct:[id number] Age/Sex: 48 / F ADM Date: 02/17/24 [facility] Dr: Trevor Rainey MD Ordering Physician: Trevor Rainey MD Date of Service: 02/17/24 Procedure(s): CT angio chest PE protocol Accession Number(s): [id number] cc: Tim Fontanez MD; Trevor Rainey MD~ EXAMINATION: CT angio chest PE protocol CLINICAL INFORMATION: Acute embolism and thrombosis of unspecified deep veins COMPARISON: No pertinent prior studies are available for comparison. TECHNIQUE: Prior to contrast administration, noncontrast localization images were obtained. Subsequently, multidetector volumetric imaging was performed through the chest following the administration of 65 mL Omnipaque 350 intravenous contrast. No contrast reaction reported Sagittal, coronal, and MIP oblique sagittal reformatted images were obtained on the CT workstation, uploaded to PACS, and reviewed. This CT examination was performed using dose optimization techniques as appropriate, variously including the following: * Automated exposure control * Adjustment of mA and/or kV according to patient size (this includes techniques or standardized protocols for targeted exams where dose is matched to indication/reason for exam; i.e. extremities or head) Use of iterative reconstruction technique Total exam dose-length product 139 mGy-cm FINDINGS: QUALITY OF STUDY/CONTRAST BOLUS: Satisfactory. PULMONARY ARTERIES: No central or segmental pulmonary emboli. THORACIC AORTA: No aneurysm or dissection. LUNG: Central airways are patent. Posterior left lower lobe 0.6 cm pulmonary nodule (series #7 axial image 279). Calcified granuloma in the right upper lobe. Dependent subsegmental atelectasis bilaterally. No focal consolidation or mass. No pleural effusion or pneumothorax. MEDIASTINUM: Cardiomegaly without pericardial effusion. No hilar or mediastinal lymphadenopathy. No evidence of septal bowing or right heart strain. CHEST WALL/AXILLA: No axillary or internal mammary lymphadenopathy. VISUALIZED ABDOMEN: Gastric sutures partially visualized. No reflux of contrast into the hepatic veins to suggest increased right heart pressure. OSSEOUS STRUCTURES: No suspicious sclerotic or lytic bone lesions are identified. CT/CT angio chest PE protocol IMPRESSION: 1. No evidence of pulmonary embolism. 2. Posterior left lower lobe 0.6 cm pulmonary nodule. Per the 2017 revised Fleischner Society guidelines, non-contrast chest CT at 6-12 months is recommended. If the nodule is stable at time of repeat CT, then future CT at 18-24 months (from today's scan) is considered optional for low-risk patients, but is recommended for high-risk patients. 3. Cardiomegaly. VTE: negative. Electronically signed by: Shruti Hernandez DO 02/17/2024 05:28 PM EST Dictated By: Shruti Hernandez Signed By: <Electronically signed by Shruti Hernandez in OV> 02/17/24 1728 DD/ 1027 TD/TT: 02/17/24 1040 Recovery Advocate: [place] [address] Cardiology Report Signed Patient: Kenia Harman MR#: [id number] : 1975 Acct:[id number] Age/Sex: 48 / F ADM Date: 02/17/24 Loc: [facility] Attending Dr: Trevor Rainey MD Ordering Physician: Trevor Rainey MD Date of Service: 02/17/24 Procedure(s): CA echo transthoracic complete Accession Number(s): cc: Trevor Rainey MD~ Transthoracic Echocardiogram Patient (Last, First, Middle): Kenia Harman, Gender: Female Date of : 1975 Age: 48 Procedure Date: 02/17/2024 Procedure Type: Transthoracic Echocardiogram Location: OP Height: 162.56 cm Weight: 95.26 kg BSA: 2.00 m2 Heart Rate: bpm BP: 136 / 82 mmHg Foxing Painter: GABRIELA Referring MD: Trevor Rainey MD Movement Assembly Final Inspector: Declan Bethea MD Symptoms: I27.20 - Pulmonary hypertension, unspecified Study Quality: Adequate ECG Rhythm: Sinus Conclusions: - Essentially normal study Findings Left Ventricle Normal left ventricular size, thickness, and systolic function. The visually estimated ejection fraction is between 60-65%. Spectral Doppler is indicative of a normal filling pattern. Right Ventricle Normal right ventricular cavity size and systolic function. Atria Both atria are normal in size. Interatrial shunt cannot be excluded. Aortic Valve The aortic valve structure and function is likely normal. There is no aortic valve stenosis. There is no aortic valve regurgitation. Mitral Valve Normal mitral valve structure and function. There is trace mitral valve regurgitation. There is no mitral valve stenosis. Pulmonic Valve The pulmonic valve was not well visualized. Tricuspid Valve Likely normal tricuspid valve structure and function. There is trace tricuspid valve regurgitation. The right ventricular systolic pressure is normal. The right ventricular systolic pressure is 23 mmHg. Normal right atrial pressure. There is no evidence of pulmonary hypertension. Great Vessels All visible segments of the aorta are normal in size. The pulmonary artery was not well visualized. There is no dilatation of the ascending aorta measuring 3.20 cm. Venous The inferior vena cava is normal in size and collapses greater than 50% with inspiration. Pericardium/Pleural There is no evidence of pericardial effusion. Prior Study Comparison No prior study available for comparison. Measurements 2D Linear Measurements IVSd: 0.99 0.6-0.9/0.6-1.0 cm LVIDd: 4.48 3.9-5.3/4.2-5.9 cm LVIDd Index: 2.24 2.4-3.2/2.2-3.1 cm/m2 LVIDs: 2.82 2.0-3.6 cm LVPWd: 0.83 0.7-1.1 cm LA Diam: 3.60 2.7-3.8/3.0-4.0 cm LAIDs Index: 1.80 1.5-2.3 cm/m2 LV Mass: 167.28 67-162/88-224 g LV Mass Index: 83.64 43-95/49-115 g/m2 LVOT Diam: 2.00 3.0+(-)1.3 cm 2D Systolic Function EF 4C: 57.40 >55% EF 2C: 69.80 >55% EF BiP: 65.20 >55% Mitral Valve MV Pk E: 0.75 MV PK A: 0.63 MV Decel Time: 255.00 E/A: 1.20 E'Lateral: 9.03 E'Medial: 7.94 E/E' Med: 9.50 E/E' Lat: 8.30 PHT: 75.00 MVA PHT: 2.93 Decel Freestone: 2.95 Aortic Valve AoV Pk Joe: 1.44 AoV Mn Joe: 0.95 AoV VTI: 0.28 AoV Pk Grad: 8.00 Aov Mn Grad: 4.00 KEELEY Cont.VTI: 2.66 LVOT LVOT Pk Joe: 1.17 LVOT Mn Joe: 0.77 LVOT VTI: 0.24 LVOT Pk Grad: 5.00 LVOT Mn Grad: 3.00 LVOT Diam: 2.00 LVOT Area: 3.14 Diastolic Function MV Pk E: 0.75 MV Pk A: 0.63 E/A: 1.20 E'Medial: 7.94 E/E' Med: 9.50 E' Laterial: 9.03 E/E' Lat: 8.30 Right Ventricle TAPSE (mm): 26.30 TVS' Joe: 13.10 Tricuspid Valve TR Pk Joe: 1.94 TR Pk Grad: 15.00 RA Press: 8.00 RVSP: 23.00 Great Vessels Aorta Sinus of Valsalva: 3.16 2.0-3.[address] Ridge: 2.52 1.7-3.4 cm Ao Asc: 3.20 2.1-3.4 cm Ao Arch: 2.70 Updated in Other Vendor System with Status of Final Declan Bethea MD electronically signed on 02/18/2024 9:17:18 AM with status of Final Dictated By: Declan Bethea MD Signed By: <Electronically signed by Declan Bethea MD in OV> 02/18/24 0917 DD/ 1011 TD/TT: Recovery Advocate: Assessment & Plan Assessment & Plan (1) Pulmonary emboli: Code(s): I26.99 - Other pulmonary embolism without acute cor pulmonale Category: Medical Qualifiers: Acute cor pulmonale presence: without acute cor pulmonale Chronicity: chronic Pulmonary embolism type: unspecified Qualified Code(s): I27.82 - Chronic pulmonary embolism (2) Insomnia: Code(s): G47.00 - Insomnia, unspecified Category: Medical Qualifiers: Insomnia type: primary Qualified Code(s): F51.01 - Primary insomnia (3) Asthma: Code(s): J45.909 - Unspecified asthma, uncomplicated Category: Medical Qualifiers: Asthma complication type: uncomplicated Asthma persistence: persistent Asthma severity: moderate Qualified Code(s): J45.40 - Moderate persistent asthma, uncomplicated (4) Pleuritic chest pain: Code(s): R07.81 - Pleurodynia Category: Medical (5) DVT (deep venous thrombosis): Code(s): I82.409 - Acute embolism and thrombosis of unspecified deep veins of unspecified lower extremity Category: Medical Qualifiers: Affected thrombotic vein of extremity: peroneal Chronicity: acute DVT location: lower extremity Laterality: right Qualified Code(s): I82.451 - Acute embolism and thrombosis of right peroneal vein Plan continue Xorelto LE doppler R in 4-6 weeks Symbicort continue Ambien sleep study ordered decrease Diamox BID->daily lasix x 3 days Low dose prednisone taper, monitor BS follow-up in 6-8 weeks Medications: New furosemide (Lasix) 20 mg PO DAILY 3 days 3 tabs 0RF prednisolone sodium phosphate orally daily; Take 2 tabs daily x 10 days, then 1 tab daily x 10 days 20 days 30 tabs 0RF Coding Level of Care Code Est Pt Level 5 (97904) Diagnoses Chronic pulmonary embolism without acute cor pulmonale, unspecified pulmonary embolism type I27.82 Acute cor pulmonale presence: without acute cor pulmonale Chronicity: chronic Pulmonary embolism type: unspecified Primary insomnia F51.01 Insomnia type: primary Moderate persistent asthma without complication J45.40 Asthma complication type: uncomplicated Asthma persistence: persistent Asthma severity: moderate Pleuritic chest pain R07.81 Acute deep vein thrombosis (DVT) of right peroneal vein I82.451 Affected thrombotic vein of extremity: peroneal Chronicity: acute DVT location: lower extremity Laterality: right Time Spent (min) 35
[2024-03-03 09:34] VITALS: BP 114/72; PULSE 75; O2SAT 100; BMI 36.5
== END 2024-03-03 10:11 | disposition home or self-care (01) ==
PROVIDERS: PCP Internal Medicine; Visit Provider Hospitalist
DX: I27.82 Chronic pulmonary embolism (principal); J45.40 Moderate persistent asthma, uncomplicated; R07.81 Pleurodynia; F51.01 Primary insomnia; I82.451 Acute embolism and thrombosis of right peroneal vein
CPT/HCPCS: 99214

== ENCOUNTER → 2024-03-03 09:31 | Outpatient (BNVA) | payer OTHER, SELFPAY | PROVIDERS: PCP Internal Medicine; Visit Provider Hospitalist | DX: J45.40 Moderate persistent asthma, uncomplicated (principal); I27.82 Chronic pulmonary embolism; F51.01 Primary insomnia; R07.81 Pleurodynia; I82.451 Acute embolism and thrombosis of right peroneal vein | CPT/HCPCS: 99212 ==

== ENCOUNTER 2024-03-30 14:17 | Outpatient (REF) | payer OTHER, SELFPAY ==
--- NOTE | ~2024-03-30 | US_ITS ---
EXAMINATION: US TRIPLEX LOWER EXTREMITY, RIGHT CLINICAL INFORMATION: History of right peroneal vein deep venous thrombosis COMPARISON: None available. TECHNIQUE: Color-flow triplex imaging with spectral analysis and compression Doppler were performed on the right lower extremity. FINDINGS: Respiratory variation, normal compression and augmented flow are noted throughout the right lower extremity. The visualized common femoral vein, superficial femoral vein, profunda femoral vein, popliteal vein and midcalf peroneal and posterior tibial venous segments show no evidence of deep venous thrombosis. There is no Tang's cyst. US/US venous duplex LE RT IMPRESSION: No evidence of deep venous thrombosis involving the right lower extremity. Electronically signed by: Tomas Cordero MD 03/30/2024 03:28 PM EST Workstation: [id number]
== END 2024-03-30 14:18 | disposition home or self-care (01) ==
LOC: HO.HMGCX 14:17
PROVIDERS: PCP Internal Medicine; Visit Provider Hospitalist
DX: I82.409 Acute embolism and thrombosis of unspecified deep veins of unspecified lower extremity (principal)
CPT/HCPCS: 93971

== ENCOUNTER 2024-04-28 15:19 | Outpatient (AMB) | payer OTHER, SELFPAY ==
[2024-04-28 15:30] VITALS: BP 110/62; PULSE 75; O2SAT 99
--- NOTE | 2024-04-28 15:30 | MHC.OFFVIS ---
Vital Signs 04/28/24 15:30 Weight 216 lb 0.848 oz BP 110/62 Blood Pressure Location Lt brachial Position Sitting Pulse 75 Pulse Source Pulse Oximeter Pulse Oximetry (%) 99 Oxygen Delivery Method Room Air Intake Visit Reasons: Asthma Allergies No Known Allergies Allergy (Unverified 04/28/24 15:34) Medication List - Last Reconciled 04/28/24 by Ila Mina LPN albuterol sulfate 90 mcg/actuation (Ventolin HFA) 2 puffs inhalation Q4-6H PRN azelastine intranasal azithromycin 500 mg PO DAILY 5 days budesonide-formoterol 160-4.5 mcg/actuation (Symbicort) 2 puffs inhalation BID 30 days doxycycline hyclate 100 mg PO BID 10 days duloxetine 60 mg PO DAILY fluticasone propionate 50 mcg/actuation 2 sprays intranasal BID PRN furosemide (Lasix) 20 mg PO DAILY 3 days gabapentin 300 mg PO TID hydrochlorothiazide 25 mg PO DAILY methylprednisolone (Medrol (Neo)) PO PER PKG DIR 6 days metoprolol succinate ER 100 mg PO DAILY prednisone PO daily; Take 2 tabs daily x 7 days, then 1 tab daily x 7 days 14 days rimegepant (Nurtec ODT) 75 mg PO Q OTHER DAY rivaroxaban (Xarelto) 20 mg PO DAILY topiramate 50 mg PO BID trazodone 100 mg PO BEDTIME valacyclovir mg PO verapamil ER 300 mg PO BEDTIME zolpidem 10 mg PO BEDTIME PRN 30 days HPI Comments Details: The patient is a 48-year-old woman with a known history of migraines who apparently was in her usual state health until she started developing some intermittent right-sided chest discomfort the month of March and April. Her symptoms became significantly worse with severe pleuritic chest discomfort and ended up going to the [facility] Department. There she did undergo a CT scan of the chest demonstrating multiple pulmonary nodules in the right middle right lower lung zones with pulmonary infarct as well as what appeared to be right ventricular strain. Her echocardiogram demonstrated some degree of comes certain triggers hypertrophy of the left ventricle but her RV apparently was working well. Her pulmonary pressures were not estimated. The patient initially placed on Eliquis although she had significant side effects with fatigue. Ultimately switch over to Xarelto. The Xarelto she has been getting headaches. Although she has had a history of migraines as well. As far as the blood clots is not clear the etiology. The patient denies any recent surgeries or prolonged immobilization or trauma. She did have hormonal therapy with progesterone. This was removed. Fact clear she did have COVID. The patient did have exposure to someone with COVID, but, she tested negative in the ER. She then was tested for antibiotics which are positive but, she was already vaccinated making it difficult to interpret the results. Indeed she is concerned about having lifelong anticoagulation which would be the treatment for unprovoked pulmonary emboli. The patient shortly beyond therapy for a year before start talking about adjusting her therapy. I will request records from [facility] regarding her hypercoagulable workup that she may have had as far as to continue the evaluation. In addition to that the patient has significant migraines. She also has daytime drowsiness. She uses multiple sleep aids with partial resolution of her insomnia. The patient has not had a sleep study. Therefore we will have her undergo a sleep study in order to follow her elevated Tomahawk score of 14/24. And also hopefully if she does have sleep apnea and is treated her significant headaches will improve. Will follow-up after the sleep study. 04/26/2021 the patient is here for a pulmonary follow-up visit. Overall she feels about the same. Still having severe migraines which is very debilitating for her. She is currently working with a migraine specialist. In the meantime she did have a sleep study which was completely normal. She does not have any evidence of any sleep apnea or hypoxia at this time. However, she still has a very hard time sleeping. She has tried multiple sleep aids without any significant improvement. Will try to provide her with a alternative regimen to allow her to have affecting sleep. In the meantime which still waiting for the CTs from [facility] in order to review the images with her. We already had requested them before but it did not arrive so therefore we have called the hospital again to get The images. Once available were reviewed together. For now she continues to use the anticoagulation therapy as this will be lifelong for unprovoked clots. Patient also complains of sinus discomfort and pressure. Unfortunately she does have a blood pressure when she cannot use Sudafed. Will optimize her nasal therapy further at this time. 11/10/2023 the patient is here for a pulmonary follow-up visit. She has multiple complaints experiencing some pleuritic left-sided chest pain. The symptoms seem to be at times moderate to severe. Hard to take a deep breath in. Feels sharp in nature. In addition to that she does get some tightness sensation around the chest. She does use her rescue inhaler with some partial relief. She continues on the Xarelto for the history of blood clots. He has been tolerating the full dose. Sometimes she bruises she does not like that but she understands that she needs to take it. The patient also has been having some difficulty sleeping. She has been having some increased daytime drowsiness. She has also gained weight. Tomahawk score is elevated 02/03. She is scheduled to undergo a sleep study through her primary care. In the meantime we are going to request additional blood work looking for etiologies for pleuritis specially with pleuritic chest pain. The patient also will maximize her respiratory therapy by adding a maintenance inhaler. After the blood work will talk about additional imaging studies. Her last CT scan of the chest was CTA back in 2020 demonstrating resolution of the PE that she had initially. 02/16/2024 the patient is here for a follow-up ER visit. Apparently she was in usual state health until for the last 4 weeks when she started developing cramping of her lower extremities. Reasons having some chest discomfort as well. She is also having more shortness of breath and tachycardia. She did talk to her primary care who ordered an ultrasound of her leg. Demonstrating a DVT of her right lower extremity. The patient was placed on a loading dose Xarelto. Apparently prior to that she had come off the Xarelto for a dental procedure. Unfortunately was prolonged because she was going to have another dental procedure. Therefore she spent some time off the Xarelto altogether. Prior to that she was on low-dose. At this point she is on a loading dose of 50 mg twice a day. She will likely go down to 20 mg daily after the 21 days. She will follow-up with her PCP for that. During the office visit we did go for a walking oximetry. The patient's pulse ox was excellent under%. However, heart rate was up to 120 beats per minute with minimal activity. She was visibly dyspneic with dyspnea score of 6/10. Will go ahead and request a CTA with suspicion that she could have had a subacute PE in addition to that we check an echocardiogram to make sure she does not have any pulmonary hypertension due to the PE. She will continue with Xarelto for now. The patient understands that if she is ever going to need a procedures going to have to bridge with Lovenox. Will talk about that further. The patient also will get a repeat ultrasound of the leg in about 6-8 weeks to make sure the cause of gone. For now any elective procedures be on hold. If she needs any semi elective procedures done prior to the clots been gone she can always call and we can work around. She is going to continue with her inhalers. She patient does feel some chest tightness. She is also having a cough. I will send her a Z-Noe to make sure we can improve any evidence of bronchitis. 03/03/2024 the patient is here for a pulmonary follow-up visit. The patient overall is feeling a little better although she still having dyspnea on exertion. She did have an echocardiogram which is reassuring no evidence of any pulmonary hypertension. She also had a CTA. No definitive evidence of pulmonary emboli although the patient did have a irregular pleural-based density on the right mid lung area this indeed could be a small pulmonary infarct or inflammation. She also has evidence of ground-glass opacities bilaterally explain her shortness of breath. Will go ahead and treat her with a low-dose steroids seem this will help her in addition to that she is going to drop her Diamox from twice a day to once a day since it can affect her acid-base status and therefore could worsen her respiratory drive. In addition to that will give her some Lasix for 3 days to try to help her fluid status. She still awaiting her sleep study. Will follow-up in 6-8 weeks. She will continue with the Xarelto. 04/28/2024 the patient is here for a pulmonary follow-up visit. Overall she is doing okay. Breathing is overall better. Is reassuring about her CTA and also her echocardiogram is reassuring. She does take the Xarelto as prescribed. The patient does complaint of difficulty sleeping. She is currently on multiple medications including Ambien and also trazodone. Although the trazodone causes her to have significant dry mouth a bothers her. The patient likely also has significant sleep apnea that is affecting her sleep. Therefore she has poor sleep hygiene. She was supposed to have a sleep study but she has not been able to do it because of other psychosocial issues. The patient needs to have the sleep study. Her Tomahawk score continues to be elevated 03/06. I am hopeful that she can call and reschedule her sleep study soon. In the meantime will optimize her sleep therapy by switching her from it regular Ambien to Ambien CR for the hope of a longer duration coverage from the medication. [facility] Medical History (Updated 02/16/24 @ 22:20 by Trevor Rainey MD) DVT (deep venous thrombosis) Pleuritic chest pain Asthma Insomnia Pulmonary emboli Migraine Social History (System 02/05/23 @ 15:54 by Azalea Horton) Patient Tobacco Use Status: Never used Tobacco Review of Systems Const Reports daytime sleepiness and Reports difficulty sleeping ENT Denies change in voice, Denies lip swelling, Denies mouth pain, Reports nasal congestion, Reports nasal discharge and Denies tongue swelling Card Denies chest pain, Denies palpitations and Reports dyspnea on exertion Resp Reports cough, Reports pain on inspiration, Reports pain with cough and Reports dyspnea on exertion GI Denies abdominal pain Musc Denies no additional complaints and Reports muscle cramps Neuro Denies Neuro-related abnormal movements Psych Denies no additional complaints and Reports anxiety Endo Denies palpitations Leon/Lymph Denies easy bleeding and Denies lymphadenopathy Aller/Immun Denies lip swelling and Denies tongue swelling Physical Exam Vital Signs: Last Vital Signs Pulse 75 04/28/24 15:30 BP 110/62 04/28/24 15:30 Pulse Ox 99 04/28/24 15:30 Oxygen Delivery Method Room Air 04/28/24 15:30 Const General: alert Neck Neck: Yes normal visual inspection, Yes full ROM and Yes no lymphadenopathy Chest Chest palpation & inspection: normal inspection of the chest Resp Auscultation: diminished lung sounds Cardio Rate: regular rate Rhythm: regular rhythm Heart sounds: S1 normal heart sound present and S2 normal heart sound present GI Palpation (GI): Soft to palpation and nontender Auscultation: normal bowel sounds Skin General skin exam: rashes and/or lesions noted Assessment & Plan Assessment & Plan (1) Pulmonary emboli: Code(s): I26.99 - Other pulmonary embolism without acute cor pulmonale Category: Medical Qualifiers: Acute cor pulmonale presence: without acute cor pulmonale Chronicity: chronic Pulmonary embolism type: unspecified Qualified Code(s): I27.82 - Chronic pulmonary embolism (2) Insomnia: Code(s): G47.00 - Insomnia, unspecified Category: Medical Qualifiers: Insomnia type: primary Qualified Code(s): F51.01 - Primary insomnia (3) Asthma: Code(s): J45.909 - Unspecified asthma, uncomplicated Category: Medical Qualifiers: Asthma complication type: uncomplicated Asthma persistence: persistent Asthma severity: moderate Qualified Code(s): J45.40 - Moderate persistent asthma, uncomplicated (4) Pleuritic chest pain: Code(s): R07.81 - Pleurodynia Category: Medical (5) DVT (deep venous thrombosis): Code(s): I82.409 - Acute embolism and thrombosis of unspecified deep veins of unspecified lower extremity Category: Medical Qualifiers: Affected thrombotic vein of extremity: peroneal Chronicity: acute DVT location: lower extremity Laterality: right Qualified Code(s): I82.451 - Acute embolism and thrombosis of right peroneal vein Plan continue Xorelto Symbicort continue Ambien->change to ambien CR 12.5mg sleep study ordered, needs to schedule weight management, If she does have MARIA FERNANDA she would qualify for Zepbound follow-up in 3-4 months Medications: New zolpidem ER (Ambien CR) 12.5 mg PO BEDTIME PRN 30 tabs 3RF sleep 30 days Coding Level of Care Code Est Pt Level 4 (73583) Complex EM visit Add On G2211 Diagnoses Chronic pulmonary embolism without acute cor pulmonale, unspecified pulmonary embolism type I27.82 Acute cor pulmonale presence: without acute cor pulmonale Chronicity: chronic Pulmonary embolism type: unspecified Primary insomnia F51.01 Insomnia type: primary Moderate persistent asthma without complication J45.40 Asthma complication type: uncomplicated Asthma persistence: persistent Asthma severity: moderate Pleuritic chest pain R07.81 Acute deep vein thrombosis (DVT) of right peroneal vein I82.451 Affected thrombotic vein of extremity: peroneal Chronicity: acute DVT location: lower extremity Laterality: right Time Spent (min) 17
== END 2024-04-28 16:00 | disposition home or self-care (01) ==
PROVIDERS: PCP Internal Medicine; Visit Provider Hospitalist
DX: I27.82 Chronic pulmonary embolism (principal); F51.01 Primary insomnia; J45.40 Moderate persistent asthma, uncomplicated; R07.81 Pleurodynia; I82.451 Acute embolism and thrombosis of right peroneal vein
CPT/HCPCS: 99214; G2211

== ENCOUNTER → 2024-04-28 15:19 | Outpatient (BNVA) | payer OTHER, SELFPAY | PROVIDERS: PCP Internal Medicine; Visit Provider Hospitalist | DX: J45.40 Moderate persistent asthma, uncomplicated (principal); I27.82 Chronic pulmonary embolism; F51.01 Primary insomnia; R07.81 Pleurodynia; I82.421 Acute embolism and thrombosis of right iliac vein | CPT/HCPCS: 99212 ==

== ENCOUNTER 2024-06-20 10:15 | Outpatient (REF) | payer OTHER, SELFPAY ==
--- NOTE | ~2024-06-20 | XR_ITS ---
CLINICAL HISTORY: OSTEOARTHRITIS 4 views right wrist Comparison: None Findings: No carpal bone fractures or carpal malalignment. Distal radiocarpal joint intact. Radial and ulnar styloid preserved. No bony erosive changes. Probable small geode involving the lunate Bone mineralization and soft tissues within normal limits. No radiopaque foreign body. Impression: 1. Probable small geodes involving the lunate This document has been electronically signed by: Wes Fu MD on 06/22/2024 10:47:19
--- NOTE | ~2024-06-20 | XR_ITS ---
CLINICAL HISTORY: PAIN, BILATERAL WITH WEIGHT BEARING 3 views left knee Comparison: None Findings: No fractures, subluxations or dislocations. Medial and lateral knee compartment and patellofemoral compartment are preserved. Small enthesophytes medial knee compartment and lateral patella. No osteochondral lesions or loose bodies. Normal patellar alignment. No suprapatellar joint effusion.No prepatellar soft tissue swelling. Normal bone mineralization and soft tissues. No unusual radiopaque foreign body. Impression: 1. Small enthesophytes medial knee compartment and lateral patella This document has been electronically signed by: Wes Fu MD on 06/22/2024 10:06:22
--- NOTE | ~2024-06-20 | XR_ITS ---
CLINICAL HISTORY: OSTEOARTHRITIS 4 views left wrist Comparison: None Findings: No carpal bone fractures or carpal malalignment. Distal radiocarpal joint intact. Radial and ulnar styloid preserved. No bony erosive changes. Bone mineralization and soft tissues within normal limits. No radiopaque foreign body. Impression: 1. No fractures, malalignment or bony arthritic changes demonstrated. This document has been electronically signed by: Wes Fu MD on 06/22/2024 10:33:25
--- NOTE | ~2024-06-20 | XR_ITS ---
CLINICAL HISTORY: OSTEOARTHRITIS 3 views right hand Comparison: None Findings: No fractures, subluxations or dislocations. No periostitis or bony destruction. Joint intervals are preserved. No marginal erosions or overhanging osteophytes. Ulnar styloid perserved. Normal bone mineralization and soft tissues. Carpal bones unremarkable.. No radiopaque foreign body. Impression: 1. No erosive disease 3 views left hand Comparison: None Findings: No fractures, subluxations or dislocations. No periostitis or bony destruction. Joint intervals are preserved. No marginal erosions or overhanging osteophytes. Ulnar styloid perserved. Normal bone mineralization and soft tissues. Carpal bones unremarkable.. No radiopaque foreign body. Impression: 1. No erosive disease This document has been electronically signed by: Wes Fu MD on 06/22/2024 10:43:58
--- NOTE | ~2024-06-20 | XR_ITS ---
CLINICAL HISTORY: PAIN 3 views right knee Comparison: None Findings: No fractures, subluxations or dislocations. Lateral patellar enthesophyte. Joint intervals are preserved. No osteochondral lesions or loose bodies. Normal patellar alignment. No suprapatellar joint effusion.No prepatellar soft tissue swelling. Normal bone mineralization and soft tissues. No unusual radiopaque foreign body. Impression: 1. Lateral patellar enthesophyte. 2. Joint intervals are preserved This document has been electronically signed by: Wes Fu MD on 06/22/2024 10:21:54
[2024-06-20 12:01] LABS: D Dimer High Sensitivity < 150 NG/ML
[2024-06-20 12:21] LABS: Erythrocyte Sedimentation Rate 32 MM/HR (0-20)
--- OUTSIDE RECORDS SUMMARY | 2024-06-20 12:30 | XMS_ITS | Encounter Summary ---
Author Organization [employer] Address [address] [place] [address] Care Team Providers Care Plant Operations Coordinator Name Role Phone Tim Fontanez MD Primary Care Provider [phone] Reason for Visit * Reason Onset Date Comments Migraine 06/17/2024 Encounter Details Date Type Department Care Team (Late st Contact Info) Description 06/17/2024 Telephone [facility] 175 [facility] [address] [place] [phone] Petrona Jay [place] Migraine Social History Tobacco [...] Description 06/29/2024 1:40 PM EDT Procedure visit [facility] [address] [address] Beau Longoria MD [address] [phone] 07/27/2024 1:30 PM EDT Office Visit [facility] [address] [phone] Brooke Vides, DAYANA [address] [facility] [place] [address] documented as of this encounter Visit Diagnoses Not on filedocumented in this encounter Care Teams Plant Operations Coordinator Relationship Specialty Start Date End Date Tim Fontanez MD [address] [place] [address] PCP - General Internal Medicine 07/19/12 documented as of this encounter
--- OUTSIDE RECORDS SUMMARY | 2024-06-20 12:30 | XMS_ITS | Encounter Summary ---
Author Organization [facility] Address [address] [place] [address] Care Team Providers Care Abstract Checker Name Role Phone Tim Fontanez MD Primary Care Provider [phone] Reason for Referral * Imaging (Routine) - Pending Review Specialty Diagnoses / Procedures Referred By [place] red Referred To Contact Radiology Diagnoses Common migraine with intractable migraine Procedures MR Brain wo and w Contrast Beau Longoria MD [address] [address] Phone: tel: fax: [address] [address] Phone: tel: Referral ID Status Reason Start Date Expiration Date V isits Requested Visits Authorized [id number] Pending Review 05/30/2024 05/30/2025 1 1 Encounter Details Date Type Department Care Team (Late st Contact Info) Description 05/30/2024 12:30 PM EST Consult [facility] 175 [facility] [address] [place] [phone] Beau Longoria MD [address] [phone] Common migraine with intractable migraine (Primary Dx); [...] in her headaches She was following with [facility] , she has been trying multiple [...] daily [facility] but her insurance rejected visit [...] 1 (one) time each day.for 5 days xbawygngix-efjbqfrdcomfe-strifuld (FIORICET, ESGIC) 50-325-40 mg per tablet DULoxetine [...] All images were reviewed by me. MRI [id number] There are a few scattered T2 hyperintensities [...] 60 minutes. The majority of the actual vppm-yq-[id number] visit was spent counseling the patient with respect to the current neurological picture. Beau Longoria MD documented in this encounter Plan of Treatment Upcoming Encounters Date Type Department Care Team (Late st Contact Info) Description 06/29/2024 1:40 PM EDT Procedure visit [facility] [address] [place] [phone] Beau Longoria MD [address] [place] [address] 07/27/2024 1:30 PM EDT Office Visit [facility] [place] [address] [place] [address] Brooke Vides, DAYANA [address] [facility] [place] [address] documented as of this encounter Results * [...] Signed Date: 06/11/2024 15:27 ET Workstation ID: [id number] Transcribed By: Self Edit Transcribed Date: 06/11/2024 [...] Signed Date: 06/11/2024 15:27 ET Workstation ID: [id number] Transcribed By: Self Edit Transcribed Date: 06/11/2024 15:19 ET Beau Longoria MD [facility] [place] PROCEDURES Final Result * Rheumatoid factor (05/30/2024 1:56 PM EST) Rheumatoid Factor <10.0 <15.0 I Unit/mL LAB CHEMISTRY METHOD 05/30/2024 6:33 PM EST [facility] Blood Venous blood specimen / Unknown Venipuncture / Unknown 05/30/2024 1:56 PM EST 05/30/2024 1:56 PM EST us Beau Longoria MD LAB BLOOD ORDERABLES Fin al Result Performing Organization Address [facility]/ZIP Co de Phone Number [facility] [address] [place] [address], [place] [phone] * ANSHU IFA with titer and pattern (05/30/2024 1:56 PM EST) [facility] ANSHU Negative Negative 06/01/2024 2:17 PM EST [facility] Blood Venous blood specimen / Unknown Venipuncture / Unknown 05/30/2024 1:56 PM EST 05/30/2024 1:56 PM EST us Beau Longoria MD LAB BLOOD ORDERABLES Fin al Result Performing Organization Address [facility]/ZIP Co de Phone Number [facility] [address] [place] [address], [place] [phone] * Hepatic function panel (05/30/2024 1:56 PM EST) [facility] Total Protein 7.0 6.0 - 8.0 g/dL LAB CHEMISTRY METHOD 05/30/2024 6:33 PM [facility] Albumin 3.2 3.2 - 5.0 g/dL LAB CHEMISTRY METHOD 05/30/2024 6:33 PM [facility] Total Bilirubin 0.4 0.0 - 1.4 mg/dL LAB CHEMISTRY METHOD 05/30/2024 6:33 PM [facility] Bilirubin, Direct 0.1 0.0 - 0.3 mg/dL LAB CHEMISTRY METHOD 05/30/2024 6:33 PM [facility] Bilirubin, Indirect 0.3 0.0 - 1.1 mg/dL LAB CHEMISTRY METHOD 05/30/2024 6:33 PM [facility] ALT (SGPT) 47 10 - 60 unit/L LAB CHEMISTRY METHOD 05/30/2024 6:33 PM EST [facility] AST (SGOT) 32 10 - 42 unit/L LAB CHEMISTRY METHOD 05/30/2024 6:33 PM EST [facility] Alkaline Phosphatase 47 42 - 121 unit/L LAB CHEMISTRY METHOD 05/30/2024 6:33 PM [facility] Blood Venous blood specimen / Unknown Venipuncture / Unknown 05/30/2024 1:56 PM EST 05/30/2024 1:56 PM EST us Beau Longoria MD LAB BLOOD ORDERABLES Fin al Result Performing Organization Address [facility] de Phone Number [facility] [address] [place] [address], * Borrelia burgdorferi antibody (05/30/2024 1:56 PM EST) [facility] Lyme Ab Negative Negative LAB CHEMISTRY METHOD 05/31/2024 9:57 AM EST [facility] Comment: No laboratory evidence of [...] ORDERABLES Fin al Result Performing Organization Address [facility]/ZIP Co de Phone Number [facility] [address] [place] [address], [place] [phone] * BUN (05/30/2024 1:56 PM EST) [facility] BUN 15 5 - 25 mg/dL LAB CHEMISTRY METHOD 05/30/2024 6:33 PM EST [facility] Blood Venous blood specimen / Unknown Venipuncture / Unknown 05/30/2024 1:56 PM EST 05/30/2024 1:56 PM EST us Beau Longoria MD LAB BLOOD ORDERABLES Fin al Result Performing Organization Address [facility] de Phone Number [facility] [address] [place] [address], [place] [phone] * (ABNORMAL) Creatinine (05/30/2024 1:56 PM EST) Pathologist [facility] Creatinine 1.19(H) 0.50 - 1.10 mg/dL LAB CHEMISTRY METHOD 05/30/2024 6:33 PM EST [facility] eGFR 57(L) >=60 mL/min/1. 73m2 LAB CHEMISTRY METHOD 05/30/2024 6:33 PM EST [facility] Comment:Calculation based on the??Chronic Kidney Disease Epidemiology Collaboration (CKD-EPI) equation refit??without adjustment for race. Blood Venous blood specimen / Unknown Venipuncture / Unknown 05/30/2024 1:56 PM EST 05/30/2024 1:56 PM EST us Beau Longoria MD LAB BLOOD ORDERABLES Fin al Result Performing Organization Address City/[facility] Co de Phone Number [facility] [address] [place] [address], [place] [phone] * (ABNORMAL) Vitamin D 25 hydroxy (05/30/2024 1:56 PM EST) Vit D, 25-Hydroxy 10.1(L) 30.0 - 80.0 ng/mL LAB CHEMISTRY METHOD 05/30/2024 6:40 PM EST [facility] Blood Venous blood specimen / Unknown Venipuncture / Unknown 05/30/2024 1:56 PM EST 05/30/2024 1:56 PM EST us Beau Longoria MD LAB BLOOD ORDERABLES Fin al Result Performing Organization Address City/[facility]/ZIP Co de Phone Number [facility] [address] [place] [address], [place] [phone] * Vitamin B12 (05/30/2024 1:56 PM EST) [facility] Vitamin B-12 343 250 - 900 pcg/mL LAB CHEMISTRY METHOD 05/30/2024 6:56 PM EST [facility] Blood Venous blood specimen / Unknown Venipuncture / Unknown 05/30/2024 1:56 PM EST 05/30/2024 1:56 PM EST us Beau Longoria MD LAB BLOOD ORDERABLES Fin al Result [facility] [address] [place] [address], [place] [phone] documented in this encounter Visit Diagnoses Diagnosis [...] 06/17/2024 added in this encounter Care Teams Abstract Checker Relationship Specialty Start Date End Date Tim Fontanez MD [address] [place] [address] PCP - General Internal Medicine 07/19/12 documented as of this encounter
--- OUTSIDE RECORDS SUMMARY | 2024-06-20 12:30 | XMS_ITS ---
Author Organization [facility] Address [address] [place] [address] Care Team Providers Care Cashier And Waiter/Waitress Name Role Phone Riley Cat Primary Care Provider Tim Fontanez Unavailable Unavailable REASON FOR VISIT Needs call back from MD Encounters Encounter Location Date Provider Diagnosis [facility] [address] [place] [address] 01/01/2023 Riley Cat Plan Of Treatment No Information Progress Notes * Kenia BIANCHIDOB: 7 (47 yo F)Acc No.[id number]:01/01/2023 Patient:?Nisa Bianchiica :1975???Age:47 Y???Sex:Female Address:[address] [place] [address], [address] * true * Date:? Generated for Carlton james/Anthony/eTransmitting on:?06/20/2024 11:28 AM EDT
--- OUTSIDE RECORDS SUMMARY | 2024-06-20 12:30 | XMS_ITS | Encounter Summary ---
[facility] Address [address] [place] [address] Care Team Providers Care Neighborhood Conservation Officer Name Role Phone Tim Fontanez MD Primary Care Provider [phone] Reason for Referral * Imaging (Routine) - Pending Review Specialty Diagnoses / Procedures Referred By [place] red Referred To Contact Radiology Diagnoses Common migraine with intractable migraine Procedures MR Brain wo and w Contrast Beau Longoria MD [address] [address] Phone: tel: fax: [address] [address] Phone: tel: Referral ID Status Reason Start Date Expiration Date V isits Requested Visits Authorized [id number] Pending Review 05/30/2024 05/30/2025 1 1 Reason for Visit * Imaging (Routine) - Pending Review Specialty Diagnoses / Procedures Referred By [place] t Referred To Contact Radiology Diagnoses Common migraine with intractable migraine Procedures MR Brain wo and w Contrast Beau Longoria MD [address] [address] Phone: tel: fax: [address] [address] Phone: tel: Referral ID Status Reason Start Date Expiration Date V isits Requested Visits Authorized [id number] Pending Review 05/30/2024 05/30/2025 1 1 Encounter Details Date Type Department Care Team (Latest Contact Info) Description 06/11/2024 8:03 AM EST - 06/11/2024 11:59 PM EST Hospital Encounter [facility] [address] [place] [address] Common migraine with intractable migraine [...] Description 06/29/2024 1:40 PM EDT Procedure visit [facility] 175 [facility] [address] [place] [address] Beau Longoria MD 175 [facility] [address] [place] [phone] 07/27/2024 1:30 PM EDT Office Visit [facility] 175 [facility] [address] [place] [address] Brooke Vides, DAYANA [address] [place] [address] for [place], [place] [address] documented as of this encounter Procedures Procedure [...] Signed Date: 06/11/2024 15:27 ET Workstation ID: [id number] Transcribed By: Self Edit Transcribed Date: 06/11/2024 [...] Date: 06/11/2024 15:19 ET Assigned Physician: KEENAN DAGILE Reviewed and Electronically Signed By: KEENAN DAIGLE Signed Date: 06/11/2024 15:27 ET Workstation ID: [id number] Transcribed By: Self Edit Transcribed Date: 06/11/2024 [...] 06/11/2024 documented in this encounter Care Teams Neighborhood Conservation Officer Relationship Specialty Start Date End Date Tim Fontanez MD NPI: [id number] [place] [address] PCP - General Internal Medicine 07/19/12 documented as of this encounter
--- OUTSIDE RECORDS SUMMARY | 2024-06-20 12:30 | XMS_ITS | Clinical Summary ---
Author Organization [facility] [address] [facility] Address [address] [place] [address] Phone Care Team Providers Care Charging Plug Placer Name Role Phone Tim Fontanez MD Primary Care Provider [phone] Allergies No known active allergies Medications butalbital-acet [...] undergoing full workup including mammogram and annual OFFENSIVE COORDINATOR exam as well as basic blood tests. [...] Cat who is her migraine specialist in [place] regarding her medication and he suggested increasing [...] she feels weak if she tries to waste picker her son with her left arm. She continues to describe bilateral shoulder pain and limited mobility. a left upper extremity EMG/NCV was performed at [facility] by Dr. Blood on 11/30/2023. This shows [...] [facility] [place] [address] [phone] Petrona Jay [place] Migraine 06/11/2024 8:03 AM EST - 06/11/2024 11:59 PM EST Hospital Encounter [facility] MRI [address] [place] [id number] Common migraine with intractable migraine Discharge Disposition: Home or Self Care 05/30/2024 12:30 PM EST Consult [facility] for [place] - [place] [address] [phone] Beau Longoria MD Common migraine with intractable migraine (Primary Dx); Chronic pain of both shoulders; Cervical spondylitic cord compression; Memory problem; Dizziness from Last 3 Months Surgical History Surgery Date Site/Laterality Comments GASTRIC BYPASS 07/01/2016 PROCEDURE: MO GASTRIC RSTCV W/BYP W/SM INT RCNSTJ LIMIT ABSRPJ; COMMENT: sleeve BREAST REDUCTION 04/13/1999 - 04/12/2000 PROCEDURE: MO BREAST REDUCTION NECK SURGERY 11/27/2022 PROCEDURE: HISTORICAL [...] Description 06/29/2024 1:40 PM EDT Procedure visit [facility] [address] [place] [address] Beau Longoria MD [address] [place] [phone] 07/27/2024 1:30 PM EDT Office Visit [facility] for [place] Kenyetta Forrester [address] [place] [address] Brooke Vides, [place] [address] [facility] for [place] [address] Health Maintenance Due Date Last Done Comments [...] Signed Date: 06/11/2024 15:27 ET Workstation ID: [id number] Transcribed By: Self Edit Transcribed Date: 06/11/2024 [...] Signed Date: 06/11/2024 15:27 ET Workstation ID: [id number] Transcribed By: Self Edit Transcribed Date: 06/11/2024 15:19 ET us Beau Longoria MD IMG MRI PROCEDURES Final Result * ANSHU IFA with titer and pattern (05/30/2024 1:56 PM EST) Pathologist [facility] ANSHU Negative Negative 06/01/2024 2:17 PM EST [facility] Blood Venous blood specimen / Unknown Venipuncture / Unknown 05/30/2024 1:56 PM EST 05/30/2024 1:56 PM EST us Beau Longoria MD LAB BLOOD ORDERABLES Fin al Result [facility] [address] [place] [address], * (ABNORMAL) CBC auto differential (05/30/2024 1:56 PM EST) Pathologist [facility] WBC 15.8(H) 4.8 - 10.8 K/[facility] LAB HEMETOLOGY METHOD 05/30/2024 6:21 PM EST [facility] RBC 4.30 3.80 - 4.80 M/[facility] LAB HEMETOLOGY METHOD 05/30/2024 6:21 PM EST [facility] Hemoglobin 12.2 11.5 - 16.0 g/dL LAB HEMETOLOGY METHOD 05/30/2024 6:21 PM [facility] Hematocrit 39.3 35.0 - 47.0 % LAB HEMETOLOGY METHOD 05/30/2024 6:21 PM [facility] MCV 91.4 79.0 - 98.0 FL LAB HEMETOLOGY METHOD 05/30/2024 6:21 PM [facility] MCH 28.4 27.0 - 32.0 pcg LAB HEMETOLOGY METHOD 05/30/2024 6:21 PM [facility] MCHC 31.0(L) 32.0 - 37.0 g/dL LAB HEMETOLOGY METHOD 05/30/2024 6:21 PM [facility] RDW 13.8 11.0 - 15.0 % LAB HEMETOLOGY METHOD 05/30/2024 6:21 PM [facility] Platelets 204 130 - 400 K/mcL LAB HEMETOLOGY METHOD 05/30/2024 6:21 PM [facility] MPV 10.9 7.0 - 11.0 FL LAB HEMETOLOGY METHOD 05/30/2024 6:21 PM [facility] NRBC 0.0 <1.0 % LAB HEMETOLOGY METHOD 05/30/2024 6:21 PM [facility] NRBC Absolute 0.00 <0.10 K/mcL LAB HEMETOLOGY METHOD 05/30/2024 6:21 PM [facility] Neutrophils Relative 74.6 % LAB HEMETOLOGY METHOD 05/30/2024 6:21 PM [facility] Lymphocytes Relative 16.5 % LAB HEMETOLOGY METHOD 05/30/2024 6:21 PM [facility] Monocytes Relative 7.1 % LAB HEMETOLOGY METHOD 05/30/2024 6:21 PM [facility] Eosinophils Relative 0.3 % LAB HEMETOLOGY METHOD 05/30/2024 6:21 PM [facility] Basophils Relative 0.2 % LAB HEMETOLOGY METHOD 05/30/2024 6:21 PM [facility] Immature Granulocytes Relative 1.3 % LAB HEMETOLOGY METHOD 05/30/2024 6:21 PM [facility] Neutrophils Absolute 11.80(H) 1.50 - 7.00 K/mcL LAB HEMETOLOGY METHOD 05/30/2024 6:21 PM [facility] Lymphocytes Absolute 2.60 1.00 - 5.00 K/mcL LAB HEMETOLOGY METHOD 05/30/2024 6:21 PM [facility] Monocytes Absolute 1.12(H) 0.20 - 1.00 K/mcL LAB HEMETOLOGY METHOD 05/30/2024 6:21 PM [facility] Eosinophils Absolute 0.05 0.00 - 0.50 K/mcL LAB HEMETOLOGY METHOD 05/30/2024 6:21 PM [facility] Basophils Absolute 0.03 0.00 - 0.20 K/mcL LAB HEMETOLOGY METHOD 05/30/2024 6:21 PM [facility] Immature Granulocytes Absolute 0.20(H) 0.00 - 0.03 K/mcL LAB HEMETOLOGY METHOD 05/30/2024 6:21 PM [facility] Blood Venous blood specimen / Unknown Venipuncture / Unknown 05/30/2024 1:56 PM EST 05/30/2024 1:56 PM EST Beau Longoria MD LAB BLOOD ORDERABLES Fin al Result [facility] [address] [place] [address], * Borrelia burgdorferi antibody (05/30/2024 1:56 PM EST) Pathologist [facility] Lyme Ab Negative Negative LAB CHEMISTRY METHOD 05/31/2024 9:57 AM EST [facility] Comment: No laboratory evidence of [...] ORDERABLES Fin al Result Performing Organization Address [facility]/ZIP [place] Phone Number [facility] [address] [place] [address], * (ABNORMAL) Creatinine (05/30/2024 1:56 PM EST) [facility] Creatinine 1.19(H) 0.50 - 1.10 mg/dL LAB CHEMISTRY METHOD 05/30/2024 6:33 PM EST [facility] eGFR 57(L) >=60 mL/min/1. 73m2 LAB CHEMISTRY METHOD 05/30/2024 6:33 PM EST [facility] Comment:Calculation based on the??Chronic Kidney Disease Epidemiology Collaboration (CKD-EPI) equation refit??without adjustment for race. Blood Venous blood specimen / Unknown Venipuncture / Unknown 05/30/2024 1:56 PM EST 05/30/2024 1:56 PM EST us Beau Longoria MD LAB BLOOD ORDERABLES Fin al Result Performing Organization Address [facility]/ZIP Co de Phone Number [facility] [address] [place] [address], * (ABNORMAL) Vitamin D 25 hydroxy (05/30/2024 1:56 PM EST) Vit D, 25-Hydroxy 10.1(L) 30.0 - 80.0 ng/mL LAB CHEMISTRY METHOD 05/30/2024 6:40 PM EST [facility] Blood Venous blood specimen / Unknown Venipuncture / Unknown 05/30/2024 1:56 PM EST 05/30/2024 1:56 PM EST us Beau Longoria MD LAB BLOOD ORDERABLES Fin al Result [facility] [address] [place] [address], [place] [phone] * Rheumatoid factor (05/30/2024 1:56 PM EST) Pathologist [facility] Rheumatoid Factor <10.0 <15.0 I Unit/mL LAB CHEMISTRY METHOD 05/30/2024 6:33 PM EST [facility] Blood Venous blood specimen / Unknown Venipuncture / Unknown 05/30/2024 1:56 PM EST 05/30/2024 1:56 PM EST us Beau Longoria MD LAB BLOOD ORDERABLES Fin al Result [facility] [address] [place] [address], [place] [phone] * BUN (05/30/2024 1:56 PM EST) Pathologist [facility] BUN 15 5 - 25 mg/dL LAB CHEMISTRY METHOD 05/30/2024 6:33 PM EST [facility] Blood Venous blood specimen / Unknown Venipuncture / Unknown 05/30/2024 1:56 PM EST 05/30/2024 1:56 PM EST us Beau Longoria MD LAB BLOOD ORDERABLES Fin al Result Performing Organization Address City/[facility]/ZIP Co de Phone Number [facility] [address] [place] [address], [place] [phone] * Vitamin B12 (05/30/2024 1:56 PM EST) [facility] Vitamin B-12 343 250 - 900 pcg/mL LAB CHEMISTRY METHOD 05/30/2024 6:56 PM [facility] Blood Venous blood specimen / Unknown Venipuncture / Unknown 05/30/2024 1:56 PM EST 05/30/2024 1:56 PM EST us Beau Longoria MD LAB BLOOD ORDERABLES Fin al Result Performing Organization Address [facility] Co de Phone Number [facility] [address] [place] [address], [place] [phone] * Hepatic function panel (05/30/2024 1:56 PM EST) [facility] Total Protein 7.0 6.0 - 8.0 g/dL [...] 05/30/2024 6:33 PM [facility] AST (SGOT) 32 10 - 42 unit/L LAB CHEMISTRY METHOD 05/30/2024 6:33 PM EST [facility] Alkaline Phosphatase 47 42 - 121 unit/L LAB CHEMISTRY METHOD 05/30/2024 6:33 PM EST [facility] Blood Venous blood specimen / Unknown Venipuncture / Unknown 05/30/2024 1:56 PM EST 05/30/2024 1:56 PM EST us Beau Longoria MD LAB BLOOD ORDERABLES Fin al Result [facility] [address] [place] [address], [place] [phone] * MG Mammo Digital Diagnostic w Blas [...] year. Mammo Location: [facility], [address] [place], [place], [address], . -------- FINAL REPORT -------- Dictated By: Marilynn Hayward Dictated Date: 03/15/2024 16:03 ET Assigned Physician: Marilynn Hayward Reviewed and Electronically Signed By: Marilynn Hayward Signed Date: 03/15/2024 16:05 ET Workstation ID: [id number] Transcribed By: Self Edit Transcribed Date: 03/15/2024 [...] year. Mammo Location: [facility], [address] [place] [address], [address], . -------- FINAL REPORT -------- Dictated By: Marilynn Hayward Dictated Date: 03/15/2024 16:03 ET Assigned Physician: Marilynn Hayward Reviewed and Electronically Signed By: Marilynn Hayward Signed Date: 03/15/2024 16:05 ET Workstation ID: [id number] Transcribed By: Self Edit Transcribed Date: 03/15/2024 16:03 ET Kayode Leal MD IMG BI PROCEDURES Final Result from Last 3 Months or Most Recently Relevant to Health Maintenance Insurance [facility] Care Teams Charging Plug Placer Relationship Specialty Start Date End Date Tim Fontanez MD [address] [place] [address] PCP - General Internal Medicine 07/19/12
[2024-06-20 12:52] LABS: Alanine Aminotransferase 21 U/L (0-31); Albumin Level 3.6 g/dL (3.5-5.0); Alkaline Phosphatase 44 U/L (39-117); Anion Gap 11 (12-20); Aspartate Amino Transferase 26 U/L (5-31); Bilirubin Direct 0.1 mg/dL (0.0-0.5); Bilirubin Total 0.3 mg/dL (0.0-1.0); Blood Urea Nitrogen 14 mg/dL (9-16); Calcium 8.8 mg/dL (8.4-10.2); Carbon Dioxide 23 mmol/L (22-29); Chloride 114 mmol/L (96-108); Estimated Glomerular Filt Rate 57; Glucose Random 97 mg/dL (60-115); Potassium 3.9 mmol/L (3.3-5.1); Sodium 144 mmol/L (135-145); Total Protein 7.2 g/dL (6.5-8.0)
[2024-06-21 12:54] LABS: Cyclic Citrullinated Peptide <16 UNITS
[2024-06-21 16:19] LABS: Anti DNA DS Antibody <1 IU/mL; Antibody to SS-A Antigen <1.0 NEG AI (<1.0 NEG); Antibody to SS-B Antigen <1.0 NEG AI (<1.0 NEG)
[2024-06-24 13:33] LABS: Anti Nuclear Antibody Screen POSITIVE (NEGATIVE); Anti Nuclear Antibody Titer 1:40 titer
[2024-06-24 19:33] LABS: Immunoglobulin E 103 kU/L (<OR=114)
== END 2024-06-20 10:16 | disposition home or self-care (01) ==
LOC: HO.LAB 10:15
PROVIDERS: PCP Internal Medicine; Visit Provider Hospitalist
DX: M25.531 Pain in right wrist (principal); M25.532 Pain in left wrist; M17.0 Bilateral primary osteoarthritis of knee; R07.81 Pleurodynia; I27.82 Chronic pulmonary embolism; G43.919 Migraine, unspecified, intractable, without status migrainosus; F51.01 Primary insomnia; J45.40 Moderate persistent asthma, uncomplicated; I82.451 Acute embolism and thrombosis of right peroneal vein; R91.8 Other nonspecific abnormal finding of lung field
CPT/HCPCS: 36415; 73110; 73130; 73562; 80048; 80076; 82785; 85379; 85652; 86038; 86039; 86200; 86225; 86235; 99212

== ENCOUNTER 2024-06-20 10:15 | Outpatient (AMB) | payer OTHER, SELFPAY ==
[2024-06-20 10:19] VITALS: BP 130/88; PULSE 69; O2SAT 95; BMI 37.5
--- NOTE | 2024-06-20 10:19 | MHC.OFFVIS ---
Vital Signs 06/20/24 10:19 Height 5 ft 4 in Weight 218 lb 4.122 oz BMI 37.5 BP 130/88 Blood Pressure Location Lt brachial Position Sitting Pulse 69 Pulse Source Pulse Oximeter Pulse Oximetry (%) 95 Oxygen Delivery Method Room Air Intake Visit Reasons: Asthma Allergies venlafaxine Allergy (Intermediate, Verified 06/20/24 10:24) Anxiety HPI Comments Details: The patient is a 48-year-old woman with a known history of migraines who apparently was in her usual state health until she started developing some intermittent right-sided chest discomfort the month of March and April. Her symptoms became significantly worse with severe pleuritic chest discomfort and ended up going to the [facility] Emergency Department. There she did undergo a CT scan of the chest demonstrating multiple pulmonary nodules in the right middle right lower lung zones with pulmonary infarct as well as what appeared to be right ventricular strain. Her echocardiogram demonstrated some degree of comes certain triggers hypertrophy of the left ventricle but her RV apparently was working well. Her pulmonary pressures were not estimated. The patient initially placed on Eliquis although she had significant side effects with fatigue. Ultimately switch over to Xarelto. The Xarelto she has been getting headaches. Although she has had a history of migraines as well. As far as the blood clots is not clear the etiology. The patient denies any recent surgeries or prolonged immobilization or trauma. She did have hormonal therapy with progesterone. This was removed. Fact clear she did have COVID. The patient did have exposure to someone with COVID, but, she tested negative in the ER. She then was tested for antibiotics which are positive but, she was already vaccinated making it difficult to interpret the results. Indeed she is concerned about having lifelong anticoagulation which would be the treatment for unprovoked pulmonary emboli. The patient shortly beyond therapy for a year before start talking about adjusting her therapy. I will request records from [facility] regarding her hypercoagulable workup that she may have had as far as to continue the evaluation. In addition to that the patient has significant migraines. She also has daytime drowsiness. She uses multiple sleep aids with partial resolution of her insomnia. The patient has not had a sleep study. Therefore we will have her undergo a sleep study in order to follow her elevated [place] score of 14/24. And also hopefully if she does have sleep apnea and is treated her significant headaches will improve. Will follow-up after the sleep study. 04/26/2021 the patient is here for a pulmonary follow-up visit. Overall she feels about the same. Still having severe migraines which is very debilitating for her. She is currently working with a migraine specialist. In the meantime she did have a sleep study which was completely normal. She does not have any evidence of any sleep apnea or hypoxia at this time. However, she still has a very hard time sleeping. She has tried multiple sleep aids without any significant improvement. Will try to provide her with a alternative regimen to allow her to have affecting sleep. In the meantime which still waiting for the CTs from [facility] in order to review the images with her. We already had requested them before but it did not arrive so therefore we have called the hospital again to get The images. Once available were reviewed together. For now she continues to use the anticoagulation therapy as this will be lifelong for unprovoked clots. Patient also complains of sinus discomfort and pressure. Unfortunately she does have a blood pressure when she cannot use Sudafed. Will optimize her nasal therapy further at this time. 11/10/2023 the patient is here for a pulmonary follow-up visit. She has multiple complaints experiencing some pleuritic left-sided chest pain. The symptoms seem to be at times moderate to severe. Hard to take a deep breath in. Feels sharp in nature. In addition to that she does get some tightness sensation around the chest. She does use her rescue inhaler with some partial relief. She continues on the Xarelto for the history of blood clots. He has been tolerating the full dose. Sometimes she bruises she does not like that but she understands that she needs to take it. The patient also has been having some difficulty sleeping. She has been having some increased daytime drowsiness. She has also gained weight. [place] score is elevated 02/03. She is scheduled to undergo a sleep study through her primary care. In the meantime we are going to request additional blood work looking for etiologies for pleuritis specially with pleuritic chest pain. The patient also will maximize her respiratory therapy by adding a maintenance inhaler. After the blood work will talk about additional imaging studies. Her last CT scan of the chest was CTA back in 2020 demonstrating resolution of the PE that she had initially. 02/16/2024 the patient is here for a follow-up ER visit. Apparently she was in usual state health until for the last 4 weeks when she started developing cramping of her lower extremities. Reasons having some chest discomfort as well. She is also having more shortness of breath and tachycardia. She did talk to her primary care who ordered an ultrasound of her leg. Demonstrating a DVT of her right lower extremity. The patient was placed on a loading dose Xarelto. Apparently prior to that she had come off the Xarelto for a dental procedure. Unfortunately was prolonged because she was going to have another dental procedure. Therefore she spent some time off the Xarelto altogether. Prior to that she was on low-dose. At this point she is on a loading dose of 50 mg twice a day. She will likely go down to 20 mg daily after the 21 days. She will follow-up with her PCP for that. During the office visit we did go for a walking oximetry. The patient's pulse ox was excellent under%. However, heart rate was up to 120 beats per minute with minimal activity. She was visibly dyspneic with dyspnea score of 6/10. Will go ahead and request a CTA with suspicion that she could have had a subacute PE in addition to that we check an echocardiogram to make sure she does not have any pulmonary hypertension due to the PE. She will continue with Xarelto for now. The patient understands that if she is ever going to need a procedures going to have to bridge with Lovenox. Will talk about that further. The patient also will get a repeat ultrasound of the leg in about 6-8 weeks to make sure the cause of gone. For now any elective procedures be on hold. If she needs any semi elective procedures done prior to the clots been gone she can always call and we can work around. She is going to continue with her inhalers. She patient does feel some chest tightness. She is also having a cough. I will send her a Z-Neo to make sure we can improve any evidence of bronchitis. 03/03/2024 the patient is here for a pulmonary follow-up visit. The patient overall is feeling a little better although she still having dyspnea on exertion. She did have an echocardiogram which is reassuring no evidence of any pulmonary hypertension. She also had a CTA. No definitive evidence of pulmonary emboli although the patient did have a irregular pleural-based density on the right mid lung area this indeed could be a small pulmonary infarct or inflammation. She also has evidence of ground-glass opacities bilaterally explain her shortness of breath. Will go ahead and treat her with a low-dose steroids seem this will help her in addition to that she is going to drop her Diamox from twice a day to once a day since it can affect her acid-base status and therefore could worsen her respiratory drive. In addition to that will give her some Lasix for 3 days to try to help her fluid status. She still awaiting her sleep study. Will follow-up in 6-8 weeks. She will continue with the Xarelto. 04/28/2024 the patient is here for a pulmonary follow-up visit. Overall she is doing okay. Breathing is overall better. Is reassuring about her CTA and also her echocardiogram is reassuring. She does take the Xarelto as prescribed. The patient does complaint of difficulty sleeping. She is currently on multiple medications including Ambien and also trazodone. Although the trazodone causes her to have significant dry mouth a bothers her. The patient likely also has significant sleep apnea that is affecting her sleep. Therefore she has poor sleep hygiene. She was supposed to have a sleep study but she has not been able to do it because of other psychosocial issues. The patient needs to have the sleep study. Her [place] score continues to be elevated 03/06. I am hopeful that she can call and reschedule her sleep study soon. In the meantime will optimize her sleep therapy by switching her from it regular Ambien to Ambien CR for the hope of a longer duration coverage from the medication. 06/20/2024 the patient is here for a pulmonary follow-up visit. She is complaining of right-sided pleuritic discomfort. Moderate severity. She almost went to the ER. She continues on Xarelto. She has not missed. We did look at her previous CT scans. Her initial diagnosis of pulmonary emboli was back in 05/02/2020. Subsequently after that she had a CT scan during the springtime of 2020 and more recently 03/02/2024 demonstrating no evidence of any PE. However, she does have a 6 mm pulmonary nodule that will need follow-up. In the meantime she has this pleuritic discomfort. She also noticed have a rash in the face. Consistent with a malar rash. We did assess for connective tissue diseases previously. But it was all negative. Will go ahead and requested again. Will also request a D-dimer since it feels like when she had blood clots. If the D-dimer is elevated will go ahead and do a CTA. If not will order a regular CT scan to follow-up with the pulmonary nodule. The patient the meantime will try a small dose of hydroxychloroquine to see if this provides some relief. She is already on Medrol for significant headaches. Also to note she did undergo a stress test at [facility]. We do not have the results. And she also underwent a sleep study [facility] and we do not have the results either. Hopefully we can have them sent over to us so we can review them. [facility] Medical History (Updated 06/20/24 @ 12:48 by Trevor Rainey MD) Pulmonary nodules DVT (deep venous thrombosis) Pleuritic chest pain Asthma Insomnia Pulmonary emboli Migraine Social History Patient Tobacco Use Status: Never used Tobacco Review of Systems Const Reports daytime sleepiness and Reports difficulty sleeping ENT Denies change in voice, Denies lip swelling, Denies mouth pain, Reports nasal congestion, Reports nasal discharge and Denies tongue swelling Card Denies chest pain, Denies palpitations and Reports dyspnea on exertion Resp Reports cough, Reports pain on inspiration, Reports pain with cough and Reports dyspnea on exertion GI Denies abdominal pain Musc Denies no additional complaints and Reports muscle cramps Neuro Denies Neuro-related abnormal movements Psych Denies no additional complaints and Reports anxiety Endo Denies palpitations Leon/Lymph Denies easy bleeding and Denies lymphadenopathy Aller/Immun Denies lip swelling and Denies tongue swelling Physical Exam Vital Signs: Last Vital Signs Pulse 69 06/20/24 10:19 BP 130/88 06/20/24 10:19 Pulse Ox 95 06/20/24 10:19 Oxygen Delivery Method Room Air 06/20/24 10:19 BMI result Body Mass Index 37.5 Const General: alert HEENT Other: Face and sinus: Yes other Neck Neck: Yes normal visual inspection, Yes full ROM and Yes no lymphadenopathy Chest Chest palpation & inspection: normal inspection of the chest Resp Auscultation: diminished lung sounds Cardio Rate: regular rate Rhythm: regular rhythm Heart sounds: S1 normal heart sound present and S2 normal heart sound present GI Palpation (GI): Soft to palpation and nontender Auscultation: normal bowel sounds Skin General skin exam: rashes and/or lesions noted Assessment & Plan Assessment & Plan (1) Pulmonary emboli: Code(s): I26.99 - Other pulmonary embolism without acute cor pulmonale Category: Medical Qualifiers: Acute cor pulmonale presence: without acute cor pulmonale Chronicity: chronic Pulmonary embolism type: unspecified Qualified Code(s): I27.82 - Chronic pulmonary embolism (2) Insomnia: Code(s): G47.00 - Insomnia, unspecified Category: Medical Qualifiers: Insomnia type: primary Qualified Code(s): F51.01 - Primary insomnia (3) Asthma: Code(s): J45.909 - Unspecified asthma, uncomplicated Category: Medical Qualifiers: Asthma complication type: uncomplicated Asthma persistence: persistent Asthma severity: moderate Qualified Code(s): J45.40 - Moderate persistent asthma, uncomplicated (4) Pleuritic chest pain: Code(s): R07.81 - Pleurodynia Category: Medical (5) DVT (deep venous thrombosis): Code(s): I82.409 - Acute embolism and thrombosis of unspecified deep veins of unspecified lower extremity Category: Medical Qualifiers: Affected thrombotic vein of extremity: peroneal Chronicity: acute DVT location: lower extremity Laterality: right Qualified Code(s): I82.451 - Acute embolism and thrombosis of right peroneal vein (6) Pulmonary nodules: Code(s): R91.8 - Other nonspecific abnormal finding of lung field Category: Medical Plan continue Xorelto Bloodwork Symbicort continue ambien CR 12.5mg sleep study ordered, needs to schedule weight management, If she does have MARIA FERNANDA she would qualify for Zepbound Trial of plaquenil repeat CT chest in 2-3 months to f/u 6mm nodule follow-up in 3-4 months Orders: Orders Cyclic Citrullinated Peptide Today I27.82 - Chronic pulmonary embolism, R07.81 - Pleurodynia Basic Metabolic Panel Today I27.82 - Chronic pulmonary embolism, R07.81 - Pleurodynia Erythrocyte Sedimentation Rate Today I27.82 - Chronic pulmonary embolism, R07.81 - Pleurodynia Liver Panel Today I27.82 - Chronic pulmonary embolism, R07.81 - Pleurodynia D Dimer High Sensitivity Today I27.82 - Chronic pulmonary embolism, R07.81 - Pleurodynia Anti DNA DS Antibody Today I27.82 - Chronic pulmonary embolism, R07.81 - Pleurodynia Sjogren's Antibodies Today I27.82 - Chronic pulmonary embolism, R07.81 - Pleurodynia ANSHU Reflex Titer and Pattern Today I27.82 - Chronic pulmonary embolism, R07.81 - Pleurodynia CT chest wo IV con 3 Months R91.8 - Other nonspecific abnormal finding of lung field Medications: New hydroxychloroquine 200 mg PO DAILY 30 days 30 tabs 3RF Coding Level of Care Code Est Pt Level 4 (47923) Complex EM visit Add On G2211 Diagnoses Chronic pulmonary embolism without acute cor pulmonale, unspecified pulmonary embolism type I27.82 Acute cor pulmonale presence: without acute cor pulmonale Chronicity: chronic Pulmonary embolism type: unspecified Primary insomnia F51.01 Insomnia type: primary Moderate persistent asthma without complication J45.40 Asthma complication type: uncomplicated Asthma persistence: persistent Asthma severity: moderate Pleuritic chest pain R07.81 Acute deep vein thrombosis (DVT) of right peroneal vein I82.451 Affected thrombotic vein of extremity: peroneal Chronicity: acute DVT location: lower extremity Laterality: right Pulmonary nodules R91.8 Time Spent (min) 17
--- OUTSIDE RECORDS SUMMARY | 2024-06-20 11:29 | XMS_ITS | Patient Health Record ---
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 Name Role Phone Riley Cat Primary Care Provider Tim Fontanez Unavailable Unavailable Allergies No Known Allergies Reason For Referral No Information Medications Medication SIG (Take, Route, Frequency, Duration) Notes Start Date End Date Status Metoprolol Succinate ER 100 MG 1 tablet Orally qhs Active Pravastatin Sodium 40 MG 1 tablet Orally at bedtime Active traZODone HCl 100 MG 1/2 tablet at bedtime Orally Once a day Active Xarelto 20 MG 1 tablet with food Orally qhs Active Gabapentin 400 MG TAKE 3 CAPSULES BY MOUTH EVERY DAY AT BEDTIME FOR 30 DAYS for 90 Active acetaZOLAMIDE 250 MG 2 tablets Orally every night for 90 days Active Riboflavin 100 MG 2 tablets Orally bid Active Zolpidem Tartrate 10 MG 1 tablet at bedt agustina as needed Orally Once a day Active Multivitamin - 1 tablet Orally Once a day Active Topiramate 100 MG TAKE 2 TABLETS BY MOUTH DAILY AT BEDTIME for 90 Active DULoxetine HCl 60 MG 1 capsule Orally Once a day Dr. Fontanez 09/11/2021 Active Verapamil HCl ER 300 MG 1 capsule Orally qhs Active rOPINIRole HCl 0.5 MG 1 tablet 1 to 3 hours before bedtime Orally Once a day Active Butalbital-Acetaminophe n 50-325 MG 1 tablet as needed Orally every 4 hrs Rx 30/month, uses 10-15/month Active Problems Problem Type SNOMED Code ICD Code Onset Dates Problem Status W/U Status Risk Notes Problem Chronic intractable migraine without aura ([id number] ) Chronic migraine without aura, intractable, with status migrainosus (G43.711) Active confirmed Plan Of Treatment No Information Insurance Providers Payer Name Payer Address Payer Phone Subscriber Number Group Number Insured Name Patient Relationship to Insured Coverage Start Date Coverage End Date [facility] [employer] [facility] [address] [address] [id number] Kenia Harman Self - patient is the insured 2 Medical (General) History Medical History History ICD Code Other medical problems inclu de an acute pulmonary embolism on 05/11/20, for which she was hospitalized at [facility] for 3 days. She was anticoagulated with Eliquis but it made her very weak and tired, then switched to Xarelto, which she continues to take. She also has hypertension and metabolic syndrome. She had an endometrial ablation some time ago and her headaches improved transiently after that. Medical imaging includes an MRI scan at [facility] 10/01, said to be normal.
--- OUTSIDE RECORDS SUMMARY | 2024-06-20 11:29 | XMS_ITS | Encounter Summary ---
Author Organization [facility] Address [address] [place] [address] Care Team Providers Care Health Officer Name Role Phone Tim Fontanez MD Primary Care Provider [phone] Reason for Referral * Imaging (Routine) - Pending Review Specialty Diagnoses / Procedures Referred By [place] red Referred To Contact Radiology Diagnoses Common migraine with intractable migraine Procedures MR Brain wo and w Contrast Beau Longoria MD [address] [address] Phone: tel: fax: [address] [address] Phone: tel: Referral ID Status Reason Start Date Expiration Date V isits Requested Visits Authorized [id number] Pending Review 05/30/2024 05/30/2025 1 1 Encounter Details Date Type Department Care Team (Late st Contact Info) Description 05/30/2024 12:30 PM EST Consult [facility] 175 [facility] [address] [place] [phone] Beau Longoria MD [address] [phone] Common migraine with intractable migraine (Primary Dx); Chronic pain of both shoulders; Cervical spondylitic cord compression; Memory problem; Dizziness Social History Tobacco Use Types Packs/Day Years Used Date Smoking Tobacco: Never Smokeless Tobacco: Never Alcohol Use Standard Drinks/Week Comments No 0 (1 standard drink = 0.6 oz pur e alcohol) Comments No Sex and Gender Information Value Date Recorded Sex Assigned at Female 02/10/2024 12:01 PM EDT Legal Sex Female 5:40 PM EST Gender Identity Female 02/10/2024 12:01 PM EDT Sexual Orientation Straight 02/10/2024 12 :01 PM EDT documented as of this encounter Last Filed Vital Signs Vital Sign Reading Time Taken Comments Blood Pressure 109/78 05/30/2024 12:34 PM EST Pulse 68 05/30/2024 12:34 PM EST Temperature 36.2 ??C (97.1 ??F) 05/30/2024 12:[address] Respiratory Rate - - Oxygen Saturation 98% 05/30/2024 12:34 PM EST Inhaled Oxygen Concentration - - Weight - - Height - - Body Mass Index - - documented in this encounter Progress Notes * Beau Longoria MD - 05/30/2024 12:30 PM EST HPI: Kenia Harman is a 48 y.o. 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 Symptoms began about 5 yo . Generally, the headaches last about several hours and occur continuously. , The headaches do not seem to be related to any time of the day. The headaches are usually severe, pounding, and throbbing and are located in Lt frontal , cervical , retroorbital . The patient rates her most severe headaches a 10 on a scale from 1 to 10. Recently, the headaches have been increasing in both severity and frequency. Work attendance or other daily activities are affected by the headaches. Precipitating factors include:light, odors, and stress. The headaches are usually preceded by an aura consisting of blurry vision, photopsias, and visual field loss. Associated neurologic symptoms: dizziness, muscle weakness, numbness of extremities, and nausea , photophobia , phonophobia . The patient denies none . Home treatment has included ibuprofen and amitriptyline, depakote, and nurtec,Emagilty , ajovy and amivog, topamax , qualipta with no improvement. Other history includes: migraine headaches diagnosed in the past. Family history includes migraine headaches in son . Patient have tried sumatriptan and rizatriptan for abortive therapy with no help in her headaches She was following with [place] [facility] , she has been trying multiple medication she was on abovementioned medication at least every medication was tried for a month with no help She was managed by her PCP she had medrol dosepack almost 4 times a year She had side effects with injectables unable to drive and function She has been experiencing hot flashes around her chest that spead upwards Verapmil 300mg 24 hr /metoprolol She been taking Fioricet daily She was seeing Dr Phan in [facility] for headache but her insurance rejected visit She have been forgetful mainly short term memory In relation to sleep habits difficulty sleeping falling sleep she was recently started on Past Medical History: Diagnosis Date History of pulmonary embolus (PE) DX:History of pulmonary embolus (PE) Hypertension DX:Hypertension Migraines DX:Migraines Seasonal allergies DX:Seasonal allergies Current Outpatient Medications Medication Sig Dispense Refill albuterol HFA (Ventolin HFA) 90 mcg/actuation inhaler 2 PUFFS NEEDED INHALATION 4 TIMES A DAY azithromycin (ZITHROMAX) 500 mg tablet Take 1 tablet (500 mg total) by mouth 1 (one) time each day.for 5 days kwahtnqcnr-lltrbywlvbwfy-eydqsijx (FIORICET, ESGIC) 50-325-40 mg per tablet DULoxetine (CYMBALTA) [address] capsule Take 2 Capsules by mouth daily for 60 days. gabapentin (NEURONTIN) 400 mg capsule TAKE 3 CAPSULES BY MOUTH EVERY DAY AT BEDTIME FOR 30 DAYS 90 methylPREDNISolone (MEDROL DOSPAK) 4 mg tablet TAKE 6 TABLETS ON DAY 1 DIRECTED ON PACKAGE AND DECREASE BY 1 TAB EACH DAY FOR A TOTAL OF 6 DAYS metoprolol succinate (TOPROL-XL) 100 mg 24 hr tablet Take 1 Tablet by mouth daily. omeprazole (PriLOSEC) [address] capsule TAKE 1 CAPSULE BY MOUTH EVERY DAY BEFORE A MEAL rimegepant (Nurtec) 75 mg dispersible tablet DISSOLVE 1 TABLET ON THE TONGUE AND ALLOW TO DISSOLVE EVERY 48 HOURS FOR 30 DAYS rivaroxaban (Xarelto) 20 mg tablet TAKE 1 TABLET BY MOUTH EVERY DAY EVENING MEAL Symbicort 160-4.5 mcg/actuation inhaler INHALE 2 PUFFS INTO LUNGS 2 TIMES A DAY FOR 30 DAYS traZODone (DESYREL) 100 mg tablet TAKE 1 TABLET AT BEDTIME ORAL ONCE A DAY FOR 30 DAYS valACYclovir (VALTREX) 500 mg tablet Take 1 Tablet by mouth daily. verapamil ER (VERELAN PM) 300 mg 24 hr capsule Take 300 mg by mouth. zolpidem (AMBIEN) 10 mg tablet TAKE 1 TABLET BY MOUTH AT BEDTIME NEEDED FOR SLEEP FOR 30 DAYS No current facility-administered medications for this visit. No Known Allergies Social history: Tobacco: no Alcohol no Drug use: no Caffeine intake Family history: There is no significant family history Neurologic Exam: Visit Vitals BP 109/78 (BP Location: Right arm, Patient Position: Sitting) Pulse 68 Temp 36.2 ??C (97.1 ??F) (Temporal) SpO2 98% OB Status Having periods Smoking Status Never MS: AOx3 CN: perrla, , V1-3 intact to LT, face symmetric, bilateral SCM/trapezius 5/5, tongue/uvula/palate midline Motor: 5/5 in all extremities Sensation: Intact to light touch, temperature, and vibration in all extremities Reflexes: 2+ in bilateral biceps and patellae, toes downgoing bilaterally Cerebellar: FNF intact bilaterally, FFM intact bilaterally, DURGA intact bilaterally, tandem gait normal, romberg negative Labs: Imaging: All images were reviewed by me. MRI [id number] There are a few scattered T2 hyperintensities in the subcutaneous subcortical white matter of the bilateral frontal lobes suggesting early onset small vessel ischemic changes. A/P: Kenia Harman is a 48 y.o. year old female referred to our center by Tim Fontanez MD for evaluation and management of chronic migraine headaches 30/30 days a month since she was 5 years old patient have tried multiple medications over the years with no success she has been following with neurology and headache specialist. Patient failed amitriptyline, depakote, and nurtec,Emagilty , ajovy and amivog, topamax , qualipta and beta-blockers Discussed with the patient we will need to obtain MRI brain to exclude any structural causing causing headache Of note patient had an MRI brain in 2020 with nonspecific T2 changes Prolonged discussion about medication overuse headache patient was been using Fioricet on a daily basis Migraine headache Patient is instructed to keep a headache calendar log We will approve patient for Botox for chronic migraine headaches I have explained the risk, benefits and alternatives of Botox therapy. The risk includes bruising, infection, neck weakness and dry mouth. Patient understood the risks and asked appropriate questions. The patient would like to proceed with the injection. Nahomyrelvy was handed for abortive therapy abortive Take one tablet as needed for headaches, may repeat in 2 hours, do not exceed more than 2 per day Counseled on avoidance of migraine triggers, particularly sleep deprivation, missed meals, dehydration, certain foods and avoiding excessive caffeine/NSAIDs. Patient has been using acetazolamide 500 mg 3 times a day will consider weaning off after starting Botox Dizziness We will obtain a brain MRI and review Consider physical therapy and Occupational Therapy referral Memory changes Will obtain basic labs Will review MRI for any structural cause -RTC in 2 months for follow up The patient and I discussed the clinical picture during today's appointment. Additional time was spent prior to the actual appointment reviewing records, lab values and imaging results and preparing documentation for today's visit. There was also time spent following the in person visit documenting, arranging for further diagnostic testing and follow-up appointments. The entire time spent in thisprocess was greater than 60 minutes. The majority of the actual bsqk-ig-[id number] visit was spent counseling the patient with respect to the current neurological picture. Beau Longoria MD documented in this encounter Plan of Treatment Upcoming Encounters Date Type Department Care Team (Late st Contact Info) Description 06/29/2024 1:40 PM EDT Procedure visit [facility] [address] [place] [phone] Beau Longoria MD [address] [place] [address] 07/27/2024 1:30 PM EDT Office Visit [facility] [place] [address] [place] [address] Brooke Vides, DAYANA [address] [facility] [place] [address] documented as of this encounter Results * MR Brain wo and w Contrast (06/11/2024 8:49 AM EST) Anatomical Region Laterality Modality Head and Neck Magnetic Resonan ce 06/11/2024 3:19 PM EST Impressions 06/11/2024 3:27 PM EST No acute findings or abnormal intracranial enhancement. Minimal nonspecific T2 hyperintense foci throughout the supratentorial white matter, similar compared to 2020 and most likely related to sequelae of chronic migraine or early chronic small vessel ischemic change. -------- FINAL REPORT -------- Dictated By: KEENAN DAIGLE Dictated Date: 06/11/2024 15:19 ET Assigned Physician: KEENAN DAIGLE Reviewed and Electronically Signed By: KEENAN DAIGLE Signed Date: 06/11/2024 15:27 ET Workstation ID: [id number] Transcribed By: Self Edit Transcribed Date: 06/11/2024 15:19 ET Narrative 06/11/2024 3:27 PM EST PROCEDURE: Brain MRI INDICATION: Headache TECHNIQUE: Multiplanar, multisequence MRI of the brain without and with contrast. COMPARISON: ??09/19/2020 MRI FINDINGS: No acute infarct, mass effect, or intracranial hemorrhage. Minimal nonspecific T2 hyperintense foci throughout the supratentorial white matter with frontal and subcortical predominance, similar compared to 2020. Brain parenchyma is otherwise normal in signal. ??No abnormal intracranial enhancement or susceptibility artifact. Sella and foramen magnum are within normal limits. Ventricles, sulci, and cisterns are normal in size configuration. ??No hydrocephalus. Major intracranial arterial flow voids are within normal limits. ??Major dural venous sinuses enhance normally with contrast. Sinuses and mastoid air cells are clear. Orbits and extracranial soft tissues are normal. ??Calvarium is normal. Procedure Note Keenan Daigle MD - 06/11/2024 PROCEDURE: Brain MRI INDICATION: Headache TECHNIQUE: Multiplanar, multisequence MRI of the brain without and withcontrast. COMPARISON: 09/19/2020 MRI FINDINGS: No acute infarct, mass effect, or intracranial hemorrhage. Minimal nonspecific T2 hyperintense foci throughout the supratentorialwhite matter with frontal and subcortical predominance, similar comparedto 202. Brain parenchyma is otherwise normal in signal. No abnormal intracranialenhancement or susceptibility artifact. Sella and foramen magnum are within normal limits. Ventricles, sulci, and cisterns are normal in size configuration. Nohydrocephalus. Major intracranial arterial flow voids are within normal limits. Majordural venous sinuses enhance normally with contrast. Sinuses and mastoid air cells are clear. Orbits and extracranial soft tissues are normal. Calvarium is normal. IMPRESSION: No acute findings or abnormal intracranial enhancement. Minimal nonspecific T2 hyperintense foci throughout the supratentorialwhite matter, similar compared to 2020 and most likely related to sequelaeof chronic migraine or early chronic small vessel ischemic change. -------- FINAL REPORT -------- Dictated By: KEENAN DAIGLE Dictated Date: 06/11/2024 15:19 ET Assigned Physician: KEENAN DAIGLE Reviewed and Electronically Signed By: KEENAN DAIGLE Signed Date: 06/11/2024 15:27 ET Workstation ID: [id number] Transcribed By: Self Edit Transcribed Date: 06/11/2024 15:19 ET Beau Longoria MD [facility] [place]ED[place] Final Result * Rheumatoid factor (05/30/2024 1:56 PM EST) Rheumatoid Factor <10.0 <15.0 I Unit/mL LAB CHEMISTRY METHOD 05/30/2024 6:[address] [facility] Blood Venous blood specimen / Unknown Venipuncture / Unknown 05/30/2024 1:56 PM EST 05/30/2024 1:56 PM EST us Beau Longoria MD LAB BLOOD ORDERABLES Fin al Result Performing Organization Address [facility]/ZIP Co de Phone Number [facility] [address] [place] [address], [place] [phone] * ANSHU IFA with titer and pattern (05/30/2024 1:56 PM EST) [facility] ANSHU Negative Negative 06/01/2024 2:[address] [facility] Blood Venous blood specimen / Unknown Venipuncture / Unknown 05/30/2024 1:56 PM EST 05/30/2024 1:56 PM EST us Beau Longoria MD LAB BLOOD ORDERABLES Fin al Result Performing Organization Address [facility]/ZIP Co de Phone Number [facility] [address] [place] [address], [place] [phone] * Hepatic function panel (05/30/2024 1:56 PM EST) [facility] Total Protein 7.0 6.0 - 8.0 g/dL LAB CHEMISTRY METHOD 05/30/2024 6:33 PM [facility] Albumin 3.2 3.2 - 5.0 g/dL LAB CHEMISTRY METHOD 05/30/2024 6:33 PM [facility] Total Bilirubin 0.4 0.0 - 1.4 mg/dL LAB CHEMISTRY METHOD 05/30/2024 6:33 PM [facility] Bilirubin, Direct 0.1 0.0 - 0.3 mg/dL LAB CHEMISTRY METHOD 05/30/2024 6:33 PM [facility] Bilirubin, Indirect 0.3 0.0 - 1.1 mg/dL LAB CHEMISTRY METHOD 05/30/2024 6:33 PM [facility] ALT (SGPT) 47 10 - 60 unit/L LAB CHEMISTRY METHOD 05/30/2024 6:[address] [facility] AST (SGOT) 32 10 - 42 unit/L LAB CHEMISTRY METHOD 05/30/2024 6:[address] [facility] Alkaline Phosphatase 47 42 - 121 unit/L LAB CHEMISTRY METHOD 05/30/2024 6:33 PM [facility] Blood Venous blood specimen / Unknown Venipuncture / Unknown 05/30/2024 1:56 PM EST 05/30/2024 1:56 PM EST us Beau Longoria MD LAB BLOOD ORDERABLES Fin al Result Performing Organization Address [facility] de Phone Number [facility] [address] [place] [address], * Borrelia burgdorferi antibody (05/30/2024 1:56 PM EST) [facility] Lyme Ab Negative Negative LAB CHEMISTRY METHOD 05/31/2024 9:[address] [facility] Comment: No laboratory evidence of infection with B. burgdorferi (Lyme disease). Negative results may occur in patients recently infected (<=14 days) with B. burgdorferi. ??If recent infection is suspected, repeat testing on a new sample collected in 7-14 days is recommended. Blood Venous blood specimen / Unknown Venipuncture / Unknown 05/30/2024 1:56 PM EST 05/30/2024 1:56 PM EST us Beau Longoria MD LAB BLOOD ORDERABLES Fin al Result Performing Organization Address [facility]/ZIP Co de Phone Number [facility] [address] [place] [address], [place] [phone] * BUN (05/30/2024 1:56 PM EST) [facility] BUN 15 5 - 25 mg/dL LAB CHEMISTRY METHOD 05/30/2024 6:[address] [facility] Blood Venous blood specimen / Unknown Venipuncture / Unknown 05/30/2024 1:56 PM EST 05/30/2024 1:56 PM EST us Beau Longoria MD LAB BLOOD ORDERABLES Fin al Result Performing Organization Address [facility] de Phone Number [facility] [address] [place] [address], [place] [phone] * (ABNORMAL) Creatinine (05/30/2024 1:56 PM EST) Pathologist [facility] Creatinine 1.19(H) 0.50 - 1.10 mg/dL LAB CHEMISTRY METHOD 05/30/2024 6:[address] [facility] eGFR 57(L) >=60 mL/min/1. 73m2 LAB CHEMISTRY METHOD 05/30/2024 6:[address] [facility] Comment:Calculation based on the??Chronic Kidney Disease Epidemiology Collaboration (CKD-EPI) equation refit??without adjustment for race. Blood Venous blood specimen / Unknown Venipuncture / Unknown 05/30/2024 1:56 PM EST 05/30/2024 1:56 PM EST us Beau Longoria MD LAB BLOOD ORDERABLES Fin al Result Performing Organization Address City/[facility] Co de Phone Number [facility] [address] [place] [address], [place] [phone] * (ABNORMAL) Vitamin D 25 hydroxy (05/30/2024 1:56 PM EST) Vit D, 25-Hydroxy 10.1(L) 30.0 - 80.0 ng/mL LAB CHEMISTRY METHOD 05/30/2024 6:[address] [facility] Blood Venous blood specimen / Unknown Venipuncture / Unknown 05/30/2024 1:56 PM EST 05/30/2024 1:56 PM EST us Beau Longoria MD LAB BLOOD ORDERABLES Fin al Result Performing Organization Address City/[facility]/ZIP Co de Phone Number [facility] [address] [place] [address], [place] [phone] * Vitamin B12 (05/30/2024 1:56 PM EST) [facility] Vitamin B-12 343 250 - 900 pcg/mL LAB CHEMISTRY METHOD 05/30/2024 6:[address] [facility] Blood Venous blood specimen / Unknown Venipuncture / Unknown 05/30/2024 1:56 PM EST 05/30/2024 1:56 PM EST us Beau Longoria MD LAB BLOOD ORDERABLES Fin al Result [facility] [address] [place] [address], [place] [phone] documented in this encounter Visit Diagnoses Diagnosis Common migraine with intractable migraine- Primary Migraine without aura, with intractable migraine, so stated, without mention of status migrainosus Chronic pain of both shoulders Cervical spondylitic cord compression Cervical spondylosis with myelopathy Memory problem Memory loss Dizziness Dizziness and giddiness Common migraine with intractable migraine Migraine without aura, with intractable migraine, so stated, without mention of status migrainosus documented in this encounter Discontinued Medications Medication Sig Discontinue Reason Start Date End Da te pravastatin (PRAVACHOL) 40 mg tablet Take 1 Tablet by mouth daily. Therapy completed 05/12/2022 05/30/2024 topiramate (TOPAMAX) 100 mg tablet TAKE 2 TABLETS BY MOUTH DAILY AT BEDTIME 90 Therapy completed 06/09/2022 05/30/2024 rimegepant (Nurtec) 75 mg dispersible tablet DISSOLVE 1 TABLET ON THE TONGUE AND ALLOW TO DISSOLVE EVERY 48 HOURS FOR 30 DAYS Therapy completed 11/05/2023 05/30/2024 documented as of this encounter Historical Medications * This list may reflect changes made after this encounter. Symbicort 160-4.5 mcg/actuation inhaler INHALE 2 PUFFS INTO LUNGS 2 TIMES A DAY FOR 30 DAYS 03/10/2024 azithromycin (ZITHROMAX) 500 mg tablet Take 1 tablet (500 mg total) by mouth 1 (one) time each day. for 5 days 04/14/2024 methylPREDNISolo ne (MEDROL DOSPAK) 4 mg tablet TAKE 6 TABLETS ON DAY 1 DIRECTED ON PACKAGE AND DECREASE BY 1 TAB EACH DAY FOR A TOTAL OF 6 DAYS 05/17/2024 06/17/2024 added in this encounter Care Teams Health Officer Relationship Specialty Start Date End Date Tim Fontanez MD [address] [place] [address] PCP - General Internal Medicine 07/19/12 documented as of this encounter
--- OUTSIDE RECORDS SUMMARY | 2024-06-20 11:29 | XMS_ITS | Encounter Summary ---
Author Organization [facility] Address [address] [place] [address] Care Team Providers Care Assembling Inspector Name Role Phone Tim Fontanez MD Primary Care Provider [phone] Reason for Visit * Reason Onset Date Comments Migraine 06/17/2024 Encounter Details Date Type Department Care Team (Late st Contact Info) Description 06/17/2024 Telephone [facility] 175 [facility] [address] [place] [phone] Petrona Jay MA Migraine Social History Tobacco Use Types Packs/Day Years [...] PM EDT documented as of this encounter Progress Notes * Petrona Jay MA - 06/17/2024 12:05 PM EST Patient called and said she was still having migraines that are worsening after taking ubrelvy. Sheexplained the first ubrelvy she took it alleviated the pain and then it came back fast she then took the second ubrelvy with gabapentin which seemed to help more. However she is still having a real bad migraine where she feels her eyes are going to come out. Per verbal conversation with Brooke, she will send a dose elvira to her pharmacy to break the cycle ofthe migraine. Told patient the plan and if by next week things are not good to give us a call patient agree with plan. documented in this encounter Plan of Treatment Upcoming Encounters Date Type Department Care Team (Late st Contact Info) Description 06/29/2024 1:40 PM EDT Procedure visit [facility] [place] [address] [address] Beau Longoria MD [address] [phone] 07/27/2024 1:30 PM EDT Office Visit [facility] [place] [address] [phone] Brooke Vides, DAYANA [address] [facility] [place] [address] documented as of this encounter Visit Diagnoses Not on filedocumented in this encounter Care Teams Assembling Inspector Relationship Specialty Start Date End Date Tim Fontanez MD [address] [place] [id number] PCP - General Internal Medicine 07/19/12 documented as of this encounter
--- OUTSIDE RECORDS SUMMARY | 2024-06-20 11:29 | XMS_ITS | Clinical Summary ---
Author Organization [facility] Address [address] [place] [address] Phone Care Team Providers Care Supervisor [place] Name Role Phone Tim Fontanez MD Primary Care Provider [phone] Allergies No known active allergies Medications butalbital-acet aminophen-caffe ine (FIORICET, ESGIC) 50-325-40 mg per tablet 06/01/19 23 Active DULoxetine (CYMBALTA) [address] capsule Take 2 Capsules by mouth daily for 60 days. 01/02/20 23 Active gabapentin (NEURONTIN) 400 mg capsule TAKE 3 CAPSULES BY MOUTH EVERY DAY AT BEDTIME FOR 30 DAYS 90 07/30/19 23 Active metoprolol succinate (TOPROL-XL) 100 mg 24 hr tablet Take 1 Tablet by mouth daily. 12/13/19 23 Active omeprazole (PriLOSEC) [address] capsule TAKE 1 CAPSULE BY MOUTH EVERY DAY BEFORE A MEAL 06/22/19 23 Active traZODone (DESYREL) 100 mg tablet TAKE 1 TABLET AT BEDTIME ORAL ONCE A DAY FOR 30 DAYS 02/25/20 23 Active valACYclovir (VALTREX) 500 mg tablet Take 1 Tablet by mouth daily. 08/30/19 23 Active albuterol HFA (Ventolin HFA) 90 mcg/actuation inhaler 2 PUFFS NEEDED INHALATION 4 TIMES A DAY 11/02/19 24 Active verapamil ER (VERELAN PM) 300 mg 24 hr capsule Take 300 mg by mouth. Active zolpidem (AMBIEN) 10 mg tablet TAKE 1 TABLET BY MOUTH AT BEDTIME NEEDED FOR SLEEP FOR 30 DAYS 07/30/19 23 Active rivaroxaban (Xarelto) 20 mg tablet TAKE 1 TABLET BY MOUTH EVERY DAY EVENING MEAL 06/22/19 23 Active azithromycin (ZITHROMAX) 500 mg tablet Take 1 tablet (500 mg total) by mouth 1 (one) time each day. for 5 days 04/14/19 25 Active Symbicort 160-4.5 mcg/actuation inhaler INHALE 2 PUFFS INTO LUNGS 2 TIMES A DAY FOR 30 DAYS 03/10/20 24 Active ergocalciferol (VITAMIN D-2) 1,250 mcg (50,000 unit) capsule Take 1 capsule (50,000 Units total) by mouth 1 (one) time per week. 4 each 06/06/19 25 026 Active methylPREDNISol one (MEDROL DOSPAK) 4 mg tablet Follow schedule on package instructions 21 tablet 06/18/19 25 Active rimegepant (Nurtec) 75 mg dispersible tablet DISSOLVE 1 TABLET ON THE TONGUE AND ALLOW TO DISSOLVE EVERY 48 HOURS FOR 30 DAYS 11/05/19 24 025 Discontin ued(Thera py completed ) pravastatin (PRAVACHOL) 40 mg tablet Take 1 Tablet by mouth daily. 05/12/19 025 Discontin ued(Thera py completed ) topiramate (TOPAMAX) 100 mg tablet TAKE 2 TABLETS BY MOUTH DAILY AT BEDTIME 90 06/09/19 23 025 Discontin ued(Thera py completed ) methylPREDNISol one (MEDROL DOSPAK) 4 mg tablet TAKE 6 TABLETS ON DAY 1 DIRECTED ON PACKAGE AND DECREASE BY 1 TAB EACH DAY FOR A TOTAL OF 6 DAYS 05/17/19 25 025 Discontin ued(Reord er) Active Problems Problem Noted Date Diagnosed Date Class 1 obesity due to exces s calories without serious comorbidity with body mass index (BMI) of 31.0 to 31.9 in adult 02/11/2024 Bilateral shoulder pain 05/07/2023 Overview (02/11/2024): Last Assessment & Plan: Ms. Harman continues to describe pain throughout her entire body though not so much her neck has not improved after her C5-6, C6-7 ADR on 11/27/2022. She is mainly focused today on her left shoulder where raising it causes pain in her forearm and hand. She has some symptoms on the right but the left is far worse. She describes back pain, abdominal pain, leg pain all throughout the day. She continues to take gabapentin, Robaxin and Topamax but feels like she is not making much progress. On exam, her incision is well-healed, she has good range of motion of the cervical spine, she is able to abduct the left shoulder and raise her arm overhead but reports extreme pain to touch in her forearm. Strength is 5/5, gait is steady. It is hard to explain her diffuse body pain outside of something like fibromyalgia. I understand that she is undergoing full workup including mammogram and annual DIRECTOR CPG exam as well as basic blood tests. I think she should be referred for formal exam to evaluate for fibromyalgia either by rheumatology or neurology if the preliminary workup is negative. Migraine without aura and wi thout status migrainosus, not intractable 01/01/2023 Overview (02/11/2024): Last Assessment & Plan: The patient continues to take all of her previous medication but has ongoing neck pain, diffuse body pain and her headaches. I spoke to Dr. Cat who is her migraine specialist in [place] regarding her medication and he suggested increasing her Cymbalta to 120 mg. I did this is a 2-month prescription and she should contact him for follow-up. Cervical spondylitic cord compression 08/07/2022 Overview (02/11/2024): Last Assessment & Plan: Ms. Harman is here for a 1 year follow-up since her C5-6, C6-7 artificial disc replacement on 11/27/2022. She looks well but feels that she has had no significant improvement since the surgery. She continues to describe pain from her neck around her scapula and around the chest. She often feels left-sided neck pain and right sided spasm turning one side to the other. 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 She continues to describe bilateral shoulder pain and limited mobility. a left upper extremity EMG/NCV was performed at [facility] by Dr. Blood on 11/30/2023. This shows a normal nerve conduction study and minimal chronic denervation change in the left triceps suggestive of mild C6 radiculopathy , the remainder was normal including testing of the cervical paraspinal muscles. On exam, her incision is well-healed, cervical rotation is 30 degrees bilaterally provoking some left anterior neck pain. Shoulder abduction is less than 90 degrees bilaterally. Her motor exam is nonfocal though with poor effort overall. Review of the AP/lateral with oblique views of the cervical spine from today show both artificial disks to be in good position and no evidence of osteolysis. The foramina are patent. I reviewed this in detail with Ms. Harman and there is no evidence of acute nerve root compression that would warrant further intervention. The minimal chronic findings at the left C6 nerve root is at a level that has already been treate the remaining option is continued physical therapy and strengthening. I have offered her referral to orthopedics to evaluate her shoulders which I believe is a separate issue and she would like to be referred to [facility]. She is welcome to follow-up with us in the future if there are any new concerns. Symptomatic abdominal panniculus 06/07/2019 Encounters Date Type Department Care Team Description 06/17/2024 Telephone [facility] [place] [address] [phone] Petrona Jay [place] Migraine 06/11/2024 8:03 AM EST - 06/11/2024 11:59 PM EST Hospital Encounter [facility] MRI [address] [place] [phone] Common migraine with intractable migraine Discharge Disposition: Home or Self Care 05/30/2024 12:30 PM EST Consult [facility] [place] [address] [phone] Beau Longoria MD Common migraine with intractable migraine (Primary Dx); Chronic pain of both shoulders; Cervical spondylitic cord compression; Memory problem; Dizziness from Last 3 Months Surgical History Surgery Date Site/Laterality Comments GASTRIC BYPASS 07/01/2016 PROCEDURE: [place] GASTRIC RSTCV W/BYP W/SM INT RCNSTJ LIMIT ABSRPJ; COMMENT: sleeve BREAST REDUCTION 04/13/1999 - 04/12/2000 PROCEDURE: [place] BREAST REDUCTION NECK SURGERY 11/27/2022 PROCEDURE: HISTORICAL NECK SURGERY; COMMENT: C5-6 C6-7 artificial disc replacement Medical History Medical History Date Comments Hypertension DX:Hypertension Migraines DX:Migraines Seasonal allergies DX:Seasonal a llergies History of pulmonary embolus (PE) DX:History of pulmonary embolus (PE) Family History Medical History Relation Name Comments Diabetes Mother Relation Name Status Comments Father Mother Alive Social History Tobacco Use Types Packs/Day Years [...] Orientation Straight 02/10/2024 12 :01 PM EDT Obstetrics History Para Term AB IAB SAB Ectopic Multiple Livin g Live Births 1 Last Filed Vital Signs Vital Sign Reading Time Taken Comments Blood Pressure 109/78 05/30/2024 12:34 PM EST Pulse 68 05/30/2024 12:34 PM EST Temperature 36.2 ??C (97.1 ??F) 05/30/2024 12:[address] Respiratory Rate - - Oxygen Saturation 98% 05/30/2024 12:34 PM EST Inhaled Oxygen Concentration - - Weight 95.3 kg (210 lb) 03/15/2024 1:20 PM EST Height 162.6 cm (5' 4 ) 03/15/2024 1:20 PM EST Body Mass Index 36.05 03/15/2024 1:20 PM EST Plan of Treatment Upcoming Encounters Date Type Department Care Team (Late st Contact Info) Description 06/29/2024 1:40 PM EDT Procedure visit [facility] [address] [place] [address] Beau Longoria MD [address] [place] [phone] 07/27/2024 1:30 PM EDT Office Visit [facility] Kenyetta Forrester [address] [place] [address] Brooke Vides, [place] [address] [facility] [place] [address] Health Maintenance Due Date Last Done Comments DTaP,Tdap,and Td Vaccines (1 - Tdap) 07/19/1995 Hepatitis B Vaccines (1 of 3 - 19+ 3-dose series) 07/19/1995 Cervical Cancer Screening: P ap Smear 1997 Cholesterol Screening (Lipid Panel) 03/15/2022 Colorectal Cancer Screening: Colonoscopy 03/15/2022 Depression Screening 03/15/2022 HIV Screening 03/15/2022 Hepatitis C Screening 03/15/2022 Social Influencers of Health Screening 03/15/2022 COVID-19 Vaccine (3 - 2023-2 5 season) 2023 09/27/2020, 09/06/2020 Breast Cancer Screening 03/15/2026 03/15/2024 Influenza Vaccine Completed 03/02/2024 HIB Vaccines Aged Out No longer eligi ble based on patient's age to complete this topic HPV Vaccines Aged Out No longer eligi ble based on patient's age to complete this topic Hepatitis A Vaccines Aged Out No long er eligible based on patient's age to complete this topic IPV Vaccines Aged Out No longer eligi ble based on patient's age to complete this topic MMR Vaccines Aged Out No longer eligi ble based on patient's age to complete this topic Meningococcal ACWY Vaccine Aged Out N o longer eligible based on patient's age to complete this topic Meningococcal B Vacine Aged Out No lo nger eligible based on patient's age to complete this topic Pneumococcal Vaccine: Pediatrics (0 to 5 Years) and At-Risk Patients (6 to 64 Years) Aged Out No longer eligible b ased on patient's age to complete this topic RSV Immunization Patients Under 20 months Aged Out No longer eligible b ased on patient's age to complete this topic Varicella Vaccines Aged Out No longer eligible based on patient's age to complete this topic Procedures Procedure Name Priority Date/Time Associated Diagnosis Comments MR BRAIN WO AND W CONTRAST Routine 06/11/2024 8:49 AM EST Common migraine with intractable migraine CBC WITH AUTO DIFFERENTIAL Routine 05/30/2024 1:56 PM EST Common migraine with intractable migraine RHEUMATOID FACTOR Routine 05/30/2024 1:5 6 PM EST Common migraine with intractable migraine ANSHU IFA WITH TITER AND PATTERN Routine 05/30/2024 1:56 PM EST Common migraine with intractable migraine HEPATIC FUNCTION PANEL Routine 05/30/2024 1:56 PM EST Common migraine with intractable migraine BORRELIA BURGDORFERI ANTIBODY Routine 05/30/2024 1:56 PM EST Common migraine with intractable migraine CBC AND DIFFERENTIAL Routine 05/30/2024 1:56 PM EST Common migraine with intractable migraine BUN Routine 05/30/2024 1:56 PM EST Common migraine with intractable migraine CREATININE, SERUM Routine 05/30/2024 1:5 6 PM EST Common migraine with intractable migraine VITAMIN D 25 HYDROXY Routine 05/30/2024 1:56 PM EST Common migraine with intractable migraine VITAMIN B12 Routine 05/30/2024 1:56 PM EST Common migraine with intractable migraine MG MAMMO DIGITAL DIAGNOSTIC W BLAS BILAT Routine 03/15/2024 2:36 PM EST Unspecified lump in the right breast, unspecified quadrant from Last 3 Months or Most Recently Relevant to Health Maintenance Results * MR Brain wo and w [...] Signed Date: 06/11/2024 15:27 ET Workstation ID: [id number] Transcribed By: Self Edit Transcribed Date: 06/11/2024 [...] Signed Date: 06/11/2024 15:27 ET Workstation ID: [id number] Transcribed By: Self Edit Transcribed Date: 06/11/2024 15:19 ET us Beau Longoria MD IMG MRI PROCEDURES Final Result * ANSHU IFA with titer and pattern (05/30/2024 1:56 PM EST) Pathologist [facility] [place] ANSHU Negative Negative 06/01/2024 2:17 PM EST [facility] Blood Venous blood specimen / Unknown Venipuncture / Unknown 05/30/2024 1:56 PM EST 05/30/2024 1:56 PM EST us Beau Longoria MD LAB BLOOD ORDERABLES Fin al Result [facility] [address] [place] [address], * (ABNORMAL) CBC auto differential (05/30/2024 1:56 PM EST) Pathologist [facility] WBC 15.8(H) 4.8 - 10.8 K/[facility] LAB HEMETOLOGY METHOD 05/30/2024 6:21 PM EST [facility] RBC 4.30 3.80 - 4.80 M/[facility] LAB HEMETOLOGY METHOD 05/30/2024 6:21 PM EST [facility] Hemoglobin 12.2 11.5 - 16.0 g/dL LAB HEMETOLOGY METHOD 05/30/2024 6:21 PM [facility] Hematocrit 39.3 35.0 - 47.0 % LAB HEMETOLOGY METHOD 05/30/2024 6:21 PM [facility] MCV 91.4 79.0 - 98.0 FL LAB HEMETOLOGY METHOD 05/30/2024 6:21 PM [facility] MCH 28.4 27.0 - 32.0 pcg LAB HEMETOLOGY METHOD 05/30/2024 6:21 PM [facility] MCHC 31.0(L) 32.0 - 37.0 g/dL LAB HEMETOLOGY METHOD 05/30/2024 6:21 PM [facility] RDW 13.8 11.0 - 15.0 % LAB HEMETOLOGY METHOD 05/30/2024 6:21 PM [facility] Platelets 204 130 - 400 K/mcL LAB HEMETOLOGY METHOD 05/30/2024 6:21 PM [facility] MPV 10.9 7.0 - 11.0 FL LAB HEMETOLOGY METHOD 05/30/2024 6:21 PM [facility] NRBC 0.0 <1.0 % LAB HEMETOLOGY METHOD 05/30/2024 6:21 PM [facility] NRBC Absolute 0.00 <0.10 K/mcL LAB HEMETOLOGY METHOD 05/30/2024 6:21 PM [facility] Neutrophils Relative 74.6 % LAB HEMETOLOGY METHOD 05/30/2024 6:21 PM [facility] Lymphocytes Relative 16.5 % LAB HEMETOLOGY METHOD 05/30/2024 6:21 PM [facility] Monocytes Relative 7.1 % LAB HEMETOLOGY METHOD 05/30/2024 6:21 PM [facility] Eosinophils Relative 0.3 % LAB HEMETOLOGY METHOD 05/30/2024 6:21 PM [facility] Basophils Relative 0.2 % LAB HEMETOLOGY METHOD 05/30/2024 6:21 PM [facility] Immature Granulocytes Relative 1.3 % LAB HEMETOLOGY METHOD 05/30/2024 6:21 PM [facility] Neutrophils Absolute 11.80(H) 1.50 - 7.00 K/mcL LAB HEMETOLOGY METHOD 05/30/2024 6:21 PM [facility] Lymphocytes Absolute 2.60 1.00 - 5.00 K/mcL LAB HEMETOLOGY METHOD 05/30/2024 6:21 PM [facility] Monocytes Absolute 1.12(H) 0.20 - 1.00 K/mcL LAB HEMETOLOGY METHOD 05/30/2024 6:21 PM [facility] Eosinophils Absolute 0.05 0.00 - 0.50 K/mcL LAB HEMETOLOGY METHOD 05/30/2024 6:21 PM [facility] Basophils Absolute 0.03 0.00 - 0.20 K/mcL LAB HEMETOLOGY METHOD 05/30/2024 6:21 PM [facility] Immature Granulocytes Absolute 0.20(H) 0.00 - 0.03 K/mcL LAB HEMETOLOGY METHOD 05/30/2024 6:21 PM [facility] Blood Venous blood specimen / Unknown Venipuncture / Unknown 05/30/2024 1:56 PM EST 05/30/2024 1:56 PM EST Beau Longoria MD LAB BLOOD ORDERABLES Fin al Result [facility] [address] [place] [address], * Borrelia burgdorferi antibody (05/30/2024 1:56 PM EST) Pathologist [facility] Lyme Ab Negative Negative LAB CHEMISTRY METHOD 05/31/2024 9:57 AM EST [facility] Comment: No laboratory evidence of [...] ORDERABLES Fin al Result Performing Organization Address [facility]/ZIP Nc de Phone Number [facility] [address] [place] [address], * (ABNORMAL) Creatinine (05/30/2024 1:56 PM EST) [facility] Creatinine 1.19(H) 0.50 - 1.10 mg/dL LAB CHEMISTRY METHOD 05/30/2024 6:33 PM EST [facility] eGFR 57(L) >=60 mL/min/1. 73m2 LAB CHEMISTRY METHOD 05/30/2024 6:33 PM EST [facility] Comment:Calculation based on the??Chronic Kidney Disease Epidemiology Collaboration (CKD-EPI) equation refit??without adjustment for race. Blood Venous blood specimen / Unknown Venipuncture / Unknown 05/30/2024 1:56 PM EST 05/30/2024 1:56 PM EST us Beau Longoria MD LAB BLOOD ORDERABLES Fin al Result Performing Organization Address [facility]/ZIP Co de Phone Number [facility] [address] [place] [address], * (ABNORMAL) Vitamin D 25 hydroxy (05/30/2024 1:56 PM EST) Vit D, 25-Hydroxy 10.1(L) 30.0 - 80.0 ng/mL LAB CHEMISTRY METHOD 05/30/2024 6:40 PM EST [facility] Blood Venous blood specimen / Unknown Venipuncture / Unknown 05/30/2024 1:56 PM EST 05/30/2024 1:56 PM EST us Beau Longoria MD LAB BLOOD ORDERABLES Fin al Result [facility] [address] [place] [address], [place] [phone] * Rheumatoid factor (05/30/2024 1:56 PM EST) Pathologist [facility] Rheumatoid Factor <10.0 <15.0 I Unit/mL LAB CHEMISTRY METHOD 05/30/2024 6:33 PM EST [facility] Blood Venous blood specimen / Unknown Venipuncture / Unknown 05/30/2024 1:56 PM EST 05/30/2024 1:56 PM EST us Beau Longoria MD LAB BLOOD ORDERABLES Fin al Result [facility] [address] [place] [address], [place] [phone] * BUN (05/30/2024 1:56 PM EST) Pathologist [facility] BUN 15 5 - 25 mg/dL LAB CHEMISTRY METHOD 05/30/2024 6:33 PM EST [facility] Blood Venous blood specimen / Unknown Venipuncture / Unknown 05/30/2024 1:56 PM EST 05/30/2024 1:56 PM EST us Beau Longoria MD LAB BLOOD ORDERABLES Fin al Result Performing Organization Address City/[facility]/ZIP Co de Phone Number [facility] [address] [place] [address], [place] [phone] * Vitamin B12 (05/30/2024 1:56 PM EST) [facility] Vitamin B-12 343 250 - 900 pcg/mL LAB CHEMISTRY METHOD 05/30/2024 6:56 PM [facility] Blood Venous blood specimen / Unknown Venipuncture / Unknown 05/30/2024 1:56 PM EST 05/30/2024 1:56 PM EST us Beau Longoria MD LAB BLOOD ORDERABLES Fin al Result Performing Organization Address [facility] Co de Phone Number [facility] [address] [place] [address], [place] [phone] * Hepatic function panel (05/30/2024 1:56 PM EST) [facility] Total Protein 7.0 6.0 - 8.0 g/dL LAB CHEMISTRY METHOD 05/30/2024 6:33 PM [facility] Albumin 3.2 3.2 - 5.0 g/dL LAB CHEMISTRY METHOD 05/30/2024 6:33 PM [facility] Total Bilirubin 0.4 0.0 - 1.4 mg/dL LAB CHEMISTRY METHOD 05/30/2024 6:33 PM [facility] Bilirubin, Direct 0.1 0.0 - 0.3 mg/dL LAB CHEMISTRY METHOD 05/30/2024 6:33 PM [facility] Bilirubin, Indirect 0.3 0.0 - 1.1 mg/dL LAB CHEMISTRY METHOD 05/30/2024 6:33 PM [facility] ALT (SGPT) 47 10 - 60 unit/L LAB CHEMISTRY METHOD 05/30/2024 6:33 PM [facility] AST (SGOT) 32 10 - 42 unit/L LAB CHEMISTRY METHOD 05/30/2024 6:33 PM EST [facility] Alkaline Phosphatase 47 42 - 121 unit/L LAB CHEMISTRY METHOD 05/30/2024 6:33 PM EST [facility] Blood Venous blood specimen / Unknown Venipuncture / Unknown 05/30/2024 1:56 PM EST 05/30/2024 1:56 PM EST us Beau Longoria MD LAB BLOOD ORDERABLES Fin al Result [facility] [address] [place] [address], [place] [phone] * MG Mammo Digital Diagnostic w Blas bilat (03/15/2024 2:36 PM EST) Anatomical Region Laterality Modality Breast Bilateral Mammography 03/15/2024 4:03 PM EST Impressions 03/15/2024 4:05 PM EST No mammographic or sonographic evidence of malignancy. Patient was instructed to follow-up with her referring physician. BI-RADS CATEGORY: Mammography: 1 - NEGATIVE Ultrasound: 1 - NEGATIVE RECOMMENDATIONS: Screening bilateral mammogram is recommended in 1 year. Mammo Location: [facility], [address] [place], [place], [address], . -------- FINAL REPORT -------- Dictated By: Marilynn Hayward Dictated Date: 03/15/2024 16:03 ET Assigned Physician: Marilynn Hayward Reviewed and Electronically Signed By: Marilynn Hayward Signed Date: 03/15/2024 16:05 ET Workstation ID: [id number] Transcribed By: Self Edit Transcribed Date: 03/15/2024 16:03 ET Narrative 03/15/2024 4:05 PM EST CLINICAL: 48 years old, Female, right breast lump at 7:00 5 cm from the nipple felt by referring physician. COMPARISON: None ?? FINDINGS: MAMMOGRAPHY TECHNIQUE: Bilateral MLO and CC views were obtained digitally with 3-D mammogram (digital breast tomosynthesis). Computer-aided detection was utilized in evaluation of this exam (CAD). There is no evidence of suspicious mass or architectural distortion. ??No worrisome calcifications are evident. ??There has been no significant change from prior exam(s). ?? BREAST DENSITY: A - The breasts are almost entirely fatty. ULTRASOUND TECHNIQUE: Ultrasound survey evaluation of the right was performed. Targeted ultrasound of the right breast at 7 o'clock demonstrates normal fibroglandular tissue. No focal abnormality corresponding to area of concern. Procedure Note Marilynn Hayward MD - 03/15/2024 CLINICAL: 48 years old, Female, right breast lump at 7:00 5 cm from thenipple felt by referring physician. COMPARISON: None FINDINGS: MAMMOGRAPHY TECHNIQUE: Bilateral MLO and CC views were obtained digitally with 3-Dmammogram (digital breast tomosynthesis). Computer-aided detection wasutilized in evaluation of this exam (CAD). There is no evidence of suspicious mass or architectural distortion. Noworrisome calcifications are evident. There has been no significantchange from prior exam(s). BREAST DENSITY: A - The breasts are almost entirely fatty. ULTRASOUND TECHNIQUE: Ultrasound survey evaluation of the right was performed. Targeted ultrasound of the right breast at 7 o'clock demonstrates normalfibroglandular tissue. No focal abnormality corresponding to area ofconcern. IMPRESSION: No mammographic or sonographic evidence of malignancy. Patient wasinstructed to follow-up with her referring physician. BI-RADS CATEGORY: Mammography: 1 - NEGATIVE Ultrasound: 1 - NEGATIVE RECOMMENDATIONS: Screening bilateral mammogram is recommended in 1 year. Mammo Location: [facility], [address] [place] [address], [id number], . -------- FINAL REPORT -------- Dictated By: Marilynn Hayward Dictated Date: 03/15/2024 16:03 ET Assigned Physician: Marilynn Hayward Reviewed and Electronically Signed By: Marilynn Hayward Signed Date: 03/15/2024 16:05 ET Workstation ID: [id number] Transcribed By: Self Edit Transcribed Date: 03/15/2024 16:03 ET Kayode Leal MD IMG BI PROCEDURES Final Result from Last 3 Months or Most Recently Relevant to Health Maintenance Insurance [facility] Care Teams Supervisor [place] Relationship Specialty Start Date End Date Tim Fontanez MD [address] [place] [address] PCP - General Internal Medicine 07/19/12
--- OUTSIDE RECORDS SUMMARY | 2024-06-20 11:29 | XMS_ITS | Encounter Summary ---
Author Organization [facility] Address [address] [place] [address] Care Team Providers Care Director Women Name Role Phone Tim Fontanez MD Primary Care Provider [phone] Reason for Referral * Imaging (Routine) - Pending Review Specialty Diagnoses / Procedures Referred By [place] red Referred To Contact Radiology Diagnoses Common migraine with intractable migraine Procedures MR Brain wo and w Contrast Beau Longoria MD [address] [address] Phone: tel: fax: [address] [address] Phone: tel: Referral ID Status Reason Start Date Expiration Date V isits Requested Visits Authorized [id number] Pending Review 05/30/2024 05/30/2025 1 1 Reason for Visit * Imaging (Routine) - Pending Review Specialty Diagnoses / Procedures Referred By [place] t Referred To Contact Radiology Diagnoses Common migraine with intractable migraine Procedures MR Brain wo and w Contrast Beau Longoria MD [address] [address] Phone: tel: fax: [address] [address] Phone: tel: Referral ID Status Reason Start Date Expiration Date V isits Requested Visits Authorized [id number] Pending Review 05/30/2024 05/30/2025 1 1 Encounter Details Date Type Department Care Team (Latest Contact Info) Description 06/11/2024 8:03 AM EST - 06/11/2024 11:59 PM EST Hospital Encounter [facility] [address] [place] [address] Common migraine with intractable migraine Discharge Disposition: Home or Self Care Social History Tobacco Use Types Packs/Day Years [...] PM EDT documented as of this encounter Medications at Time of Discharge albuterol HFA (Ventolin HFA) 90 mcg/actuation inhaler 2 PUFFS NEEDED INHALATION 4 TIMES A DAY 11/02/2023 azithromycin (ZITHROMAX) 500 mg tablet Take 1 tablet (500 mg total) by mouth 1 (one) time each day. for 5 days 04/14/2024 butalbital-aceta minophen-caffein e (FIORICET, ESGIC) 50-325-40 mg per tablet 06/01/2022 DULoxetine (CYMBALTA) [address] capsule Take 2 Capsules by mouth daily for 60 days. 01/01/2023 ergocalciferol (VITAMIN D-2) 1,250 mcg (50,000 unit) capsule Take 1 capsule (50,000 Units total) by mouth 1 (one) time per week. 4 each 06/06/2024 gabapentin (NEURONTIN) 400 mg capsule TAKE 3 CAPSULES BY MOUTH EVERY DAY AT BEDTIME FOR 30 DAYS 90 07/29/2022 metoprolol succinate (TOPROL-XL) 100 mg 24 hr tablet Take 1 Tablet by mouth daily. 12/12/2022 omeprazole (PriLOSEC) [address] capsule TAKE 1 CAPSULE BY MOUTH EVERY DAY BEFORE A MEAL 06/21/2022 rivaroxaban (Xarelto) 20 mg tablet TAKE 1 TABLET BY MOUTH EVERY DAY EVENING MEAL 06/21/2022 Symbicort 160-4.5 mcg/actuation inhaler INHALE 2 PUFFS INTO LUNGS 2 TIMES A DAY FOR 30 DAYS 03/10/2024 traZODone (DESYREL) 100 mg tablet TAKE 1 TABLET AT BEDTIME ORAL ONCE A DAY FOR 30 DAYS 02/24/2023 valACYclovir (VALTREX) 500 mg tablet Take 1 Tablet by mouth daily. 08/29/2022 verapamil ER (VERELAN PM) 300 mg 24 hr capsule Take 300 mg by mouth. zolpidem (AMBIEN) 10 mg tablet TAKE 1 TABLET BY MOUTH AT BEDTIME NEEDED FOR SLEEP FOR 30 DAYS 07/29/2022 methylPREDNISolo ne (MEDROL DOSPAK) 4 mg tablet TAKE 6 TABLETS ON DAY 1 DIRECTED ON PACKAGE AND DECREASE BY 1 TAB EACH DAY FOR A TOTAL OF 6 DAYS 05/17/2024 documented as of this encounter Discharge Disposition Disposition Code Departure Means Destination Home or Self Care documented in this encounter Plan of Treatment Upcoming Encounters Date Type Department Care Team (Late st Contact Info) Description 06/29/2024 1:40 PM EDT Procedure visit [facility] 175 [facility] [address] [place] [address] Beau Longoria MD 175 [facility] [address] [place] [phone] 07/27/2024 1:30 PM EDT Office Visit [facility] 175 [facility] [address] [place] [address] Brooke Vides, DAYANA [address] [place] [address] for [place], [place] [address] documented as of this encounter Procedures Procedure Name Priority Date/Time Associated Diagnosis Comments MR BRAIN WO AND W CONTRAST Routine 06/11/2024 8:49 AM EST Common migraine with intractable migraine documented in this encounter Results * MR Brain wo [...] Signed Date: 06/11/2024 15:27 ET Workstation ID: [id number] Transcribed By: Self Edit Transcribed Date: 06/11/2024 [...] Signed Date: 06/11/2024 15:27 ET Workstation ID: [id number] Transcribed By: Self Edit Transcribed Date: 06/11/2024 15:19 ET Beau Longoria MD IM MRI PROCEDURES Final Result documented in this encounter Visit Diagnoses Diagnosis Common migraine with intractable migraine Migraine without aura, with intractable migraine, so stated, without mention of status migrainosus documented in this encounter Administered Medications Inactive Administered Medications - up to 3 most recent administrations Medication Order MAR Action Action Date Dose Rate Site gadoterate meglumine (CLARISCAN, DOTAREM) injection 20 mL 20 mL, intravenous, Once in imaging, Starting on 06/11/24 at 0810, For 1 dose Given 06/11/2024 8:50 AM EST 20 mL documented in this encounter Orders Medications Ordered That Bennie ht Not Have Been Administered Count Last Ordered Date First Ordered Date gadoterate meglumine (JOY CAN, DOTAREM) injection 20 mL 1 06/11/2024 documented in this encounter Care Teams Director Women Relationship Specialty Start Date End Date Tim Fontanez MD NPI: [id number] [place] [address] PCP - General Internal Medicine 07/19/12 documented as of this encounter
== END 2024-06-20 10:55 | disposition home or self-care (01) ==
PROVIDERS: PCP Internal Medicine; Visit Provider Hospitalist
DX: I27.82 Chronic pulmonary embolism (principal); F51.01 Primary insomnia; J45.40 Moderate persistent asthma, uncomplicated; R07.81 Pleurodynia; I82.451 Acute embolism and thrombosis of right peroneal vein; R91.8 Other nonspecific abnormal finding of lung field
CPT/HCPCS: 99214; G2211

== ENCOUNTER → 2024-06-20 11:40 | Outpatient (BNV) | payer OTHER, SELFPAY | PROVIDERS: PCP Internal Medicine; Visit Provider Radiology Diagnostic Radiology | DX: M77.9 Enthesopathy, unspecified (principal); M19.041 Primary osteoarthritis, right hand; M19.042 Primary osteoarthritis, left hand; M19.032 Primary osteoarthritis, left wrist; M19.031 Primary osteoarthritis, right wrist | CPT/HCPCS: 73110; 73130; 73562 ==

== ENCOUNTER 2024-09-12 | Outpatient (REF) | payer OTHER, SELFPAY ==
--- NOTE | ~2024-09-12 | CT_ITS ---
EXAMINATION: CT CHEST WITHOUT IV CONTRAST INDICATION: R91.8 - Other nonspecific abnormal finding of lung field COMPARISON: Comparison is made with the prior examination dated 02/17/2024. TECHNIQUE: Helical CT scan of the chest was performed without intravenous contrast. Coronal and sagittal reformatted images were generated and reviewed. This CT exam was performed with one or more of the following dose reduction techniques: automated exposure control, adjustment of the mA and/or kV according to patient size, use of iterative reconstruction technique. DLP: 390 mGy-cm CHEST: THYROID: There are calcifications in the right thyroid lobe. LUNGS: There is diffuse nodularity and interstitial prominence in the central portion of the right lung. There is relative sparing of the periphery of the right lung. This involves the upper, middle, and lower lobes. On the left, there is a 7 mm nodule in the lower lobe (series 4, image 79) without change. The left lung is otherwise clear. MEDIASTINUM: There is no mediastinal lymphadenopathy. ROSELIA: Evaluation of the hilar regions is limited by lack of intravenous contrast material. CARDIOVASCULATURE: The heart is normal in size. There is no pericardial effusion. The thoracic aorta is normal in caliber. DEGREE OF CORONARY CALCIFICATION: none PLEURA: There is no pleural effusion. No pneumothorax. MAIN AIRWAYS: The mainstem bronchi and proximal branches are patent. AXILLA: There is no axillary lymphadenopathy. BONES AND SOFT TISSUES: Unremarkable UPPER ABDOMEN: The visualized portions of the liver, spleen, and adrenals have an unremarkable unenhanced appearance. There are postsurgical changes involving the stomach. The patient is status post cholecystectomy. CT/CT chest wo IV con IMPRESSION: 1. Stable 7 mm left lower lobe nodule. 2. Diffuse nodularity and interstitial prominence of the central portion of the right lung. This is a new finding from the prior study, and may be inflammatory or infectious in nature. Follow-up is recommended. Electronically signed by: Kayode Torres MD 09/13/2024 08:20 AM EDT
--- OUTSIDE RECORDS SUMMARY | 2024-09-13 08:58 | XMS_ITS | Clinical Summary ---
Author Organization [facility] 299 [facility] Address [address] [place] [address] Phone Care Team Providers Care Flap Maker Name Role Phone Tim Fontanez MD Primary Care Provider [phone] Allergies Active Allergy Reactions Criticality Noted Date Comments Venlafaxine 06/29/2024 Medications butalbital-acet aminophen-caffe ine (FIORICET, ESGIC) 50-325-40 mg per tablet 3 Active DULoxetine (CYMBALTA) [address] capsule Take 2 Capsules by mouth daily for 60 days. 3 Active gabapentin (NEURONTIN) 400 mg capsule TAKE 3 CAPSULES BY MOUTH EVERY DAY AT BEDTIME FOR 30 DAYS 90 3 Active omeprazole (PriLOSEC) [address] capsule TAKE 1 CAPSULE BY MOUTH EVERY DAY BEFORE A MEAL 3 Active traZODone (DESYREL) 100 mg tablet TAKE 1 TABLET AT BEDTIME ORAL ONCE A DAY FOR 30 DAYS 3 Active valACYclovir (VALTREX) 500 mg tablet Take 1 Tablet by mouth daily. 3 Active albuterol HFA (Ventolin HFA) 90 mcg/actuation inhaler 2 PUFFS NEEDED INHALATION 4 TIMES A DAY 4 Active verapamil ER (VERELAN PM) 300 mg 24 hr capsule Take 300 mg by mouth. Active zolpidem (AMBIEN) 10 mg tablet TAKE 1 TABLET BY MOUTH AT BEDTIME NEEDED FOR SLEEP FOR 30 DAYS 3 Active rivaroxaban (Xarelto) 20 mg tablet TAKE 1 TABLET BY MOUTH EVERY DAY EVENING MEAL 3 Active azithromycin (ZITHROMAX) 500 mg tablet Take 1 tablet (500 mg total) by mouth 1 (one) time each day. for 5 days 5 Active Symbicort 160-4.5 mcg/actuation inhaler INHALE 2 PUFFS INTO LUNGS 2 TIMES A DAY FOR 30 DAYS 4 Active ergocalciferol (VITAMIN D-2) 1,250 mcg (50,000 unit) capsule Take 1 capsule (50,000 Units total) by mouth 1 (one) time per week. 4 each 11 5 026 Active rosuvastatin (CRESTOR) 40 mg tablet Take 1 tablet (40 mg total) by mouth 1 (one) time each day. Active riboflavin (VITAMIN B2) 400 mg tablet Take 1 tablet (400 mg total) by mouth 1 (one) time each day. 30 tablet 5 5 Active magnesium oxide (MAG-OX) 400 mg magnesium tablet Take 1 tablet (400 mg total) by mouth 1 (one) time each day. 30 tablet 5 5 Active acetaZOLAMIDE (DIAMOX) 250 mg tablet Take 2 tablets (500 mg total) by mouth at bedtime. Active metoprolol succinate (TOPROL-XL) 100 mg 24 hr tablet Take 1 Tablet by mouth daily. 3 025 Discontinu ed(Therapy completed) Ubrelvy 100 mg tabletIndicatio ns:Chronic migraine without aura without status migrainosus, not intractable Take 1 tablet (100 mg total) by mouth 1 (one) time if needed for migraine. 16 tablet 5 025 Active Problems Problem Noted Date Diagnosed Date Class 1 obesity due to exces s calories without serious comorbidity with body mass index (BMI) of 31.0 to 31.9 in adult 02/11/2024 Bilateral shoulder pain 05/07/2023 Overview (02/11/2024): Last Assessment & Plan: Ms. Bianchi continues to describe pain throughout her entire [...] undergoing full workup including mammogram and annual TAVERN KEEPER exam as well as basic blood tests. [...] Cat who is her migraine specialist in [place] regarding her medication and he suggested increasing her Cymbalta to 120 mg. I did this is a 2-month prescription and she should contact him for follow-up. Cervical spondylitic cord compression 08/07/2022 Overview (02/11/2024): Last Assessment & Plan: Ms. Bianchi is here for a 1 year follow-up [...] she feels weak if she tries to shredder picker her son with her left arm. She continues to describe bilateral shoulder pain and limited mobility. a left upper extremity EMG/NCV was performed at [facility] by Dr. Blood on 11/30/2023. This [...] I reviewed this in detail with Ms. Bianchi and there is no evidence of acute [...] Encounters Date Type Department Care Team Description 08/29/2024 10:30 AM EDT Office Visit [address] [phone] Beau Longoria MD Blurry vision (Primary Dx); Chronic pain of both shoulders; Cervical spondylitic cord compression; Migraine without aura and without status migrainosus, not intractable 08/25/[address] [phone] Roxanne Jimenez MA Medication Problem 08/05/2024 2:00 PM EDT Telemedicine [address] [phone] Brooke Vides PA Common migraine with intractable migraine (Primary Dx) 08/03/2024 3:30 PM EDT Procedure visit [facility] [place] [address] [facility] [address] [place] [phone] Hugh Johnson DO Right groin mass (Primary Dx) 07/19/2024 Telephone [facility] 175 [facility] [address] [place] [phone] Hugh Johnson DO Prior Authorization (08/03/24 Dr. Hugh Johnson) 06/29/2024 1:40 PM EDT Procedure visit [facility] [place] [facility] [address] [place] [phone] Beau Longoria MD Common migraine with intractable migraine (Primary Dx); Chronic migraine with aura without status migrainosus, not intractable 06/29/2024 9:00 AM EDT Consult [address] [place] [phone] Hugh Johnson DO Disorder of the skin and subcutaneous tissue, unspecified 06/17/2024 Telephone [facility] [place] 175 [facility] [address] [place] [phone] Petrona Jay MA Migraine from Last 3 Months Surgical History Surgery Date Site/Laterality Comments GASTRIC BYPASS 07/01/2016 PROCEDURE: DE GASTRIC RSTCV W/BYP W/SM INT RCNSTJ LIMIT ABSRPJ; COMMENT: sleeve BREAST REDUCTION 04/13/1999 - 04/12/2000 PROCEDURE: DE BREAST REDUCTION NECK SURGERY 11/27/2022 PROCEDURE: HISTORICAL [...] Sign Reading Time Taken Comments Blood Pressure 115/77 08/29/2024 10:35 AM EDT Pulse 64 08/29/2024 10:35 AM EDT Temperature 36.2 ??C (97.1 ??F) 05/30/2024 12:[address] Respiratory Rate - - Oxygen Saturation 95% 08/29/2024 10:35 AM EDT Inhaled Oxygen Concentration - - Weight 99.8 kg (220 lb) 08/29/2024 10:35 AM EDT Height 162.6 cm (5' 4 ) 08/29/2024 10:35 AM EDT Body Mass Index 37.76 08/29/2024 10:35 AM EDT Plan of Treatment Upcoming Encounters Date Type Department Care Team (Late st Contact Info) Description 09/28/2024 2:00 PM EDT Procedure visit [facility] 175 [facility] [address] [place] [phone] Beau Longoria MD [address] [phone] 11/09/2024 1:30 PM EDT Office Visit [facility] 175 [facility] [address] [place] [phone] Brooke Vides PA [address] [address] Health Maintenance Due Date Last Done Comments DTaP,Tdap,and Td Vaccines (1 - Tdap) 07/19/1995 Hepatitis B Vaccines (1 of 3 - 19+ 3-dose series) 07/19/1995 Cervical Cancer Screening: P ap Smear 1997 Cholesterol Screening (Lipid Panel) 03/15/2022 Colorectal Cancer Screening: Colonoscopy 03/15/2022 Depression Screening 03/15/2022 HIV Screening 03/15/2022 Hepatitis C Screening 03/15/2022 Social Influencers of Health Screening 03/15/2022 COVID-19 Vaccine (2023-2 5 season) 2023 09/27/2020, 09/06/2020 Breast Cancer [...] age to complete this topic Meningococcal B Vaccine Aged Out No l onger eligible based on patient's age to complete [...] Procedure Name Priority Date/Time Associated Diagnosis Comments TISSUE EXAM Routine 08/03/2024 3:38 PM EDT Right groin mass MG MAMMO DIGITAL DIAGNOSTIC W BLAS BILAT Routine 03/15/2024 2:36 PM EST Unspecified lump in the right breast, unspecified quadrant from Last 3 Months or Most Recently Relevant to Health Maintenance Results * Tissue exam (08/03/2024 3:38 PM EDT) Final Diagnosis Skin, right groin, excision: Fibroepithel ial polyp 08/05/2024 10:42 AM EDT [facility] Clinical Information Right groin mass R19.09 08/05/2024 10:42 AM EDT [facility] Gross Description A. Groin, Right excision: Labeled groin . Received in formalin is a 1.1 x 1 x 0.6 cm wrinkled stevenson polypoid skin. The resection margin is inked black. The specimen is bisected. The cut surfaces are stevenson-white and fibrous. The specimen is entirely submitted in one cassette, two pieces. NIELS 08/05/2024 10:42 AM EDT [facility] Disclaimer Unless otherwise specified, all tissue is 10% NB formalin fixed and paraffin embedded. 08/05/2024 10:42 AM EDT [facility] Tissue Inguinal region structure / Unknown Non-blood Collection / Unknown 08/03/2024 3:38 PM EDT 08/03/2024 3:41 PM EDT us Hugh Johnson DO LAB PATHOLOGY ORDERABLES Final Result [facility] [address] [place] [address], * MG Mammo Digital Diagnostic w Blas [...] year. Mammo Location: [facility], [address] [place], [place], [address], . -------- FINAL REPORT -------- Dictated By: Marilynn Hayward Dictated Date: 03/15/2024 16:03 ET Assigned Physician: Marilynn Hayward Reviewed and Electronically Signed By: aMrilynn Hayward Signed Date: 03/15/2024 16:05 ET Workstation ID: [id number] Transcribed By: Self Edit Transcribed Date: 03/15/2024 [...] year. Mammo Location: [facility], [address] [place] [address], [address], . -------- FINAL REPORT -------- Dictated By: Marilynn Hayward Dictated Date: 03/15/2024 16:03 ET Assigned Physician: Marilynn Hayward Reviewed and Electronically Signed By: Marilynn Hayward Signed Date: 03/15/2024 16:05 ET Workstation ID: [id number] Transcribed By: Self Edit Transcribed Date: 03/15/2024 16:03 ET Kayode Leal MD IMG BI PROCEDURES Final Result from Last 3 Months or Most Recently Relevant to Health Maintenance Insurance [facility] [employer] Care Teams Flap Maker Relationship Specialty Start Date End Date Tim Fontanez MD [address] [place] [phone] PCP - General Internal Medicine 07/19/12
== END 2024-09-12 00:01 | disposition home or self-care (01) ==
LOC: HO.CT
PROVIDERS: PCP Internal Medicine; Visit Provider Hospitalist
DX: R91.8 Other nonspecific abnormal finding of lung field (principal)
CPT/HCPCS: 71250

== ENCOUNTER → 2024-09-12 12:58 | Outpatient (BNV) | payer OTHER, SELFPAY | PROVIDERS: PCP Internal Medicine; Visit Provider Radiology Diagnostic Radiology | DX: R91.1 Solitary pulmonary nodule (principal) | CPT/HCPCS: 71250 ==

== ENCOUNTER 2024-09-23 13:50 | Outpatient (AMB) | payer OTHER, SELFPAY ==
--- OUTSIDE RECORDS SUMMARY | 2024-09-23 13:54 | XMS_ITS | Clinical Summary ---
Author Organization [facility] 299 [facility] Address [address] [place] [address] Phone Care Team Providers Care Front Desk Manager Name Role Phone Tim Fontanez MD Primary Care Provider [phone] Allergies Active Allergy Reactions Criticality Noted Date [...] undergoing full workup including mammogram and annual METER TESTER PRIMARY exam as well as basic blood tests. [...] Cat who is her migraine specialist in [place] regarding her medication and he suggested increasing [...] she feels weak if she tries to picker tender her son with her left arm. She continues to describe bilateral shoulder pain and limited mobility. a left upper extremity EMG/NCV was [facility] by Dr. Blood on 11/30/2023. This [...] Encounters Date Type Department Care Team Description 09/23/[address] [phone] Beau Longoria MD 08/29/2024 10:30 AM EDT Office Visit [address] [phone] Beau Longoria MD Blurry vision (Primary Dx); Chronic pain of both shoulders; Cervical spondylitic cord compression; Migraine without aura and without status migrainosus, not intractable 08/25/[address] [phone] Roxanne Jimenez MA Medication Problem 08/05/2024 2:00 PM EDT Telemedicine [address] [place] [address] Brooke Vides PA Common migraine with intractable migraine (Primary Dx) 08/03/2024 3:30 PM EDT Procedure visit [address] [phone] Hugh Johnson, Right groin mass (Primary Dx) 07/19/[address] [phone] Hugh Johnson, DO Prior Authorization (08/03/24 Dr. Hugh Johnson) 06/29/2024 1:40 PM EDT Procedure visit [address] [phone] Beau Longoria MD Common migraine with intractable migraine (Primary Dx); Chronic migraine with aura without status migrainosus, not intractable 06/29/2024 9:00 AM EDT Consult [address] [phone] Hugh Johnson DO Disorder of the skin and subcutaneous tissue, unspecified from Last 3 Months Surgical History Surgery Date Site/Laterality Comments GASTRIC BYPASS 07/01/2016 PROCEDURE: ID GASTRIC RSTCV W/BYP W/SM INT RCNSTJ LIMIT ABSRPJ; COMMENT: sleeve BREAST REDUCTION 04/13/1999 - 04/12/2000 PROCEDURE: ID BREAST REDUCTION NECK SURGERY 11/27/2022 PROCEDURE: HISTORICAL [...] Description 09/28/2024 2:00 PM EDT Procedure visit [facility] 175 [facility] 150 [place] [phone] Beau Longoria MD 175 [facility] 150 [place] [phone] 11/09/2024 1:30 PM EDT Office Visit [facility] 175 [facility] 150 [place] [address] Brooke Vides PA 175 [facility] 150 [place] [address] Health Maintenance Due Date Last Done Comments [...] Fibroepithel ial polyp 08/05/2024 10:42 AM EDT [facility] Clinical Information Right groin mass R19.09 08/05/2024 10:42 AM EDT [facility] Gross Description A. Groin, Right excision: Labeled groin . Received in formalin is a 1.1 x 1 x 0.6 cm wrinkled stevenson polypoid skin. The resection margin is inked black. The specimen is bisected. The cut surfaces are stevenson-white and fibrous. The specimen is entirely submitted in one cassette, two pieces. NIELS 08/05/2024 10:42 AM EDT [facility] Disclaimer Unless otherwise specified, all tissue is 10% NB formalin fixed and paraffin embedded. 08/05/2024 10:42 AM EDT [facility] Tissue Inguinal region structure / Unknown Non-blood Collection / Unknown 08/03/2024 3:38 PM EDT 08/03/2024 3:41 PM EDT us Hugh Johnson DO LAB PATHOLOGY ORDERABLES Final Result [facility] [address] [place] [address], * MG Mammo Digital Diagnostic w Blas [...] year. Mammo Location: [facility], [address] [place], [place], [address], . -------- FINAL REPORT -------- Dictated By: Marilynn Hayward Dictated Date: 03/15/2024 16:03 ET Assigned Physician: Marilynn Hayward Reviewed and Electronically Signed By: Marilynn Hayward Signed Date: 03/15/2024 16:05 ET Workstation ID: [id number] Transcribed By: Self Edit Transcribed Date: 03/15/2024 [...] corresponding to area of concern. Procedure Note Mariylnn Hayward MD - 03/15/2024 CLINICAL: 48 years [...] year. Mammo Location: [facility], [address] [place] [address], [address], . -------- FINAL REPORT -------- Dictated By: Marilynn Hayward Dictated Date: 03/15/2024 16:03 ET Assigned Physician: Marilynn Hayward Reviewed and Electronically Signed By: Marilynn Hayward Signed Date: 03/15/2024 16:05 ET Workstation ID: [id number] Transcribed By: Self Edit Transcribed Date: 03/15/2024 16:03 ET Kayode Leal MD IMG BI PROCEDURES Final Result from Last 3 Months or Most Recently Relevant to Health Maintenance Insurance [facility] [employer] Care Teams Front Desk Manager Relationship Specialty Start Date End Date Tim Fontanez MD [address] [place] [id number] PCP - General Internal Medicine 07/19/12
[2024-09-23 14:00] VITALS: BP 138/80; PULSE 90; O2SAT 98; BMI 39.2
--- NOTE | 2024-09-23 14:00 | MHC.OFFVIS ---
Vital Signs 09/23/24 14:00 Height 5 ft 4 in Weight 228 lb 2.855 oz BMI 39.2 BP 138/80 Blood Pressure Location Lt brachial Position Sitting Pulse 90 Pulse Source Pulse Oximeter Pulse Oximetry (%) 98 Oxygen Delivery Method Room Air Intake Visit Reasons: asthma Sustainability Manager Required: No Allergies venlafaxine Allergy (Intermediate, Verified 09/23/24 14:02) Anxiety HPI Comments Details: The patient is a 49-year-old woman with a known history of migraines who apparently was in her usual state health until she started developing some intermittent right-sided chest discomfort the month of March and April. Her symptoms became significantly worse with severe pleuritic chest discomfort and ended up going to the [facility] Emergency Department. There she did undergo a CT scan of the chest demonstrating multiple pulmonary nodules in the right middle right lower lung zones with pulmonary infarct as well as what appeared to be right ventricular strain. Her echocardiogram demonstrated some degree of comes certain triggers hypertrophy of the left ventricle but her RV apparently was working well. Her pulmonary pressures were not estimated. The patient initially placed on Eliquis although she had significant side effects with fatigue. Ultimately switch over to Xarelto. The Xarelto she has been getting headaches. Although she has had a history of migraines as well. As far as the blood clots is not clear the etiology. The patient denies any recent surgeries or prolonged immobilization or trauma. She did have hormonal therapy with progesterone. This was removed. Fact clear she did have COVID. The patient did have exposure to someone with COVID, but, she tested negative in the ER. She then was tested for antibiotics which are positive but, she was already vaccinated making it difficult to interpret the results. Indeed she is concerned about having lifelong anticoagulation which would be the treatment for unprovoked pulmonary emboli. The patient shortly beyond therapy for a year before start talking about adjusting her therapy. I will request records from [facility] regarding her hypercoagulable workup that she may have had as far as to continue the evaluation. In addition to that the patient has significant migraines. She also has daytime drowsiness. She uses multiple sleep aids with partial resolution of her insomnia. The patient has not had a sleep study. Therefore we will have her undergo a sleep study in order to follow her elevated Collyer score of 14/24. And also hopefully if she does have sleep apnea and is treated her significant headaches will improve. Will follow-up after the sleep study. 04/26/2021 the patient is here for a pulmonary follow-up visit. Overall she feels about the same. Still having severe migraines which is very debilitating for her. She is currently working with a migraine specialist. In the meantime she did have a sleep study which was completely normal. She does not have any evidence of any sleep apnea or hypoxia at this time. However, she still has a very hard time sleeping. She has tried multiple sleep aids without any significant improvement. Will try to provide her with a alternative regimen to allow her to have affecting sleep. In the meantime which still waiting for the CTs from [facility] in order to review the images with her. We already had requested them before but it did not arrive so therefore we have called the hospital again to get The images. Once available were reviewed together. For now she continues to use the anticoagulation therapy as this will be lifelong for unprovoked clots. Patient also complains of sinus discomfort and pressure. Unfortunately she does have a blood pressure when she cannot use Sudafed. Will optimize her nasal therapy further at this time. 11/10/2023 the patient is here for a pulmonary follow-up visit. She has multiple complaints experiencing some pleuritic left-sided chest pain. The symptoms seem to be at times moderate to severe. Hard to take a deep breath in. Feels sharp in nature. In addition to that she does get some tightness sensation around the chest. She does use her rescue inhaler with some partial relief. She continues on the Xarelto for the history of blood clots. He has been tolerating the full dose. Sometimes she bruises she does not like that but she understands that she needs to take it. The patient also has been having some difficulty sleeping. She has been having some increased daytime drowsiness. She has also gained weight. Collyer score is elevated 10/24. She is scheduled to undergo a sleep study through her primary care. In the meantime we are going to request additional blood work looking for etiologies for pleuritis specially with pleuritic chest pain. The patient also will maximize her respiratory therapy by adding a maintenance inhaler. After the blood work will talk about additional imaging studies. Her last CT scan of the chest was CTA back in 2020 demonstrating resolution of the PE that she had initially. 02/16/2024 the patient is here for a follow-up ER visit. Apparently she was in usual state health until for the last 4 weeks when she started developing cramping of her lower extremities. Reasons having some chest discomfort as well. She is also having more shortness of breath and tachycardia. She did talk to her primary care who ordered an ultrasound of her leg. Demonstrating a DVT of her right lower extremity. The patient was placed on a loading dose Xarelto. Apparently prior to that she had come off the Xarelto for a dental procedure. Unfortunately was prolonged because she was going to have another dental procedure. Therefore she spent some time off the Xarelto altogether. Prior to that she was on low-dose. At this point she is on a loading dose of 50 mg twice a day. She will likely go down to 20 mg daily after the 21 days. She will follow-up with her PCP for that. During the office visit we did go for a walking oximetry. The patient's pulse ox was excellent under%. However, heart rate was up to 120 beats per minute with minimal activity. She was visibly dyspneic with dyspnea score of 6/10. Will go ahead and request a CTA with suspicion that she could have had a subacute PE in addition to that we check an echocardiogram to make sure she does not have any pulmonary hypertension due to the PE. She will continue with Xarelto for now. The patient understands that if she is ever going to need a procedures going to have to bridge with Lovenox. Will talk about that further. The patient also will get a repeat ultrasound of the leg in about 6-8 weeks to make sure the cause of gone. For now any elective procedures be on hold. If she needs any semi elective procedures done prior to the clots been gone she can always call and we can work around. She is going to continue with her inhalers. She patient does feel some chest tightness. She is also having a cough. I will send her a Z-Neo to make sure we can improve any evidence of bronchitis. 03/03/2024 the patient is here for a pulmonary follow-up visit. The patient overall is feeling a little better although she still having dyspnea on exertion. She did have an echocardiogram which is reassuring no evidence of any pulmonary hypertension. She also had a CTA. No definitive evidence of pulmonary emboli although the patient did have a irregular pleural-based density on the right mid lung area this indeed could be a small pulmonary infarct or inflammation. She also has evidence of ground-glass opacities bilaterally explain her shortness of breath. Will go ahead and treat her with a low-dose steroids seem this will help her in addition to that she is going to drop her Diamox from twice a day to once a day since it can affect her acid-base status and therefore could worsen her respiratory drive. In addition to that will give her some Lasix for 3 days to try to help her fluid status. She still awaiting her sleep study. Will follow-up in 6-8 weeks. She will continue with the Xarelto. 04/28/2024 the patient is here for a pulmonary follow-up visit. Overall she is doing okay. Breathing is overall better. Is reassuring about her CTA and also her echocardiogram is reassuring. She does take the Xarelto as prescribed. The patient does complaint of difficulty sleeping. She is currently on multiple medications including Ambien and also trazodone. Although the trazodone causes her to have significant dry mouth a bothers her. The patient likely also has significant sleep apnea that is affecting her sleep. Therefore she has poor sleep hygiene. She was supposed to have a sleep study but she has not been able to do it because of other psychosocial issues. The patient needs to have the sleep study. Her Collyer score continues to be elevated 03/06. I am hopeful that she can call and reschedule her sleep study soon. In the meantime will optimize her sleep therapy by switching her from it regular Ambien to Ambien CR for the hope of a longer duration coverage from the medication. 06/20/2024 the patient is here for a pulmonary follow-up visit. She is complaining of right-sided pleuritic discomfort. Moderate severity. She almost went to the ER. She continues on Xarelto. She has not missed. We did look at her previous CT scans. Her initial diagnosis of pulmonary emboli was back in 05/02/2020. Subsequently after that she had a CT scan during the springtime of 2020 and more recently 03/02/2024 demonstrating no evidence of any PE. However, she does have a 6 mm pulmonary nodule that will need follow-up. In the meantime she has this pleuritic discomfort. She also noticed have a rash in the face. Consistent with a malar rash. We did assess for connective tissue diseases previously. But it was all negative. Will go ahead and requested again. Will also request a D-dimer since it feels like when she had blood clots. If the D-dimer is elevated will go ahead and do a CTA. If not will order a regular CT scan to follow-up with the pulmonary nodule. The patient the meantime will try a small dose of hydroxychloroquine to see if this provides some relief. She is already on Medrol for significant headaches. Also to note she did undergo a stress test at [facility]. We do not have the results. And she also underwent a [facility] and we do not have the results either. Hopefully we can have them sent over to us so we can review them. 09/23/2024 the patient is here for sick visit. She had a CT scan back in the beginning of September demonstrating stable pulmonary nodule but what appeared to be a space disease inflammatory changes to the right hemithorax suggesting infectious process. She had been coughing at the time. She was started on a Z-Neo. However, her cough has persisted. Significant shortness of breath and chest tightness and headaches because of the cough. She can not sleep at night. Hard to expectorate. She came in for sick visit. On exam is hard to listen to her lungs because of the cough. Appears to be mainly during the exhalation phase suggesting of small airways disease and likely a component of bronchiolitis. Will go ahead and give her a nebulized treatment 1st and she will need additional antibiotics and likely cortical steroids. [facility] Medical History (Updated 09/25/24 @ 22:55 by Trevor Rainey MD) Pulmonary nodules DVT (deep venous thrombosis) Pleuritic chest pain Asthma Insomnia Pulmonary emboli Migraine Social History Patient Tobacco Use Status: Never used Tobacco Review of Systems Const Reports fatigue and Reports headache(s) ENT Reports headache(s) Resp Reports chest congestion, Reports cough and Reports wheezing Neuro Reports headache(s) Endo Reports fatigue Aller/Immun Reports wheezing Physical Exam Vital Signs: Last Vital Signs Pulse 90 09/23/24 14:00 BP 138/80 09/23/24 14:00 Pulse Ox 98 09/23/24 14:00 Oxygen Delivery Method Room Air 09/23/24 14:00 BMI result Body Mass Index 39.2 Const General: alert Neck Neck: Yes normal visual inspection, Yes full ROM and Yes no lymphadenopathy Chest Chest palpation & inspection: normal inspection of the chest Resp Effort & Inspection: Actively coughing Auscultation: wheezes and diminished lung sounds Cardio Rate: regular rate Rhythm: regular rhythm Heart sounds: S1 normal heart sound present and S2 normal heart sound present GI Palpation (GI): Soft to palpation and nontender Auscultation: normal bowel sounds Skin General skin exam: rashes and/or lesions noted Assessment & Plan Assessment & Plan (1) Asthma: Code(s): J45.909 - Unspecified asthma, uncomplicated Category: Medical Qualifiers: Asthma severity: moderate Asthma persistence: persistent Asthma complication type: with acute exacerbation Qualified Code(s): J45.41 - Moderate persistent asthma with (acute) exacerbation (2) Pulmonary emboli: Code(s): I26.99 - Other pulmonary embolism without acute cor pulmonale Category: Medical Qualifiers: Pulmonary embolism type: unspecified Chronicity: chronic Acute cor pulmonale presence: without acute cor pulmonale Qualified Code(s): I27.82 - Chronic pulmonary embolism (3) Insomnia: Code(s): G47.00 - Insomnia, unspecified Category: Medical Qualifiers: Insomnia type: primary Qualified Code(s): F51.01 - Primary insomnia (4) Pleuritic chest pain: Code(s): R07.81 - Pleurodynia Category: Medical (5) DVT (deep venous thrombosis): Code(s): I82.409 - Acute embolism and thrombosis of unspecified deep veins of unspecified lower extremity Category: Medical Qualifiers: DVT location: lower extremity Affected thrombotic vein of extremity: peroneal Chronicity: acute Laterality: right Qualified Code(s): I82.451 - Acute embolism and thrombosis of right peroneal vein (6) Pulmonary nodules: Code(s): R91.8 - Other nonspecific abnormal finding of lung field Category: Medical Plan start Medrol pk start Doxycycline cough medicine Nebulizer therapy continue Xorelto Symbicort continue ambien CR 12.5mg sleep study ordered, needs to schedule weight management, If she does have MARIA FERNANDA she would qualify for Zepbound repeat CT chest in 2-3 months to f/u 6mm nodule follow-up in 3-4 months Medications: New doxycycline hyclate 100 mg PO BID 20 caps 0RF 10 days levalbuterol HCl 1.25 mg (3 mL) inhalation BID 180 mL 0RF 30 days J44.9 - Chronic obstructive pulmonary disease, unspecified codeine-guaifenesin 10-100 mg/5 mL 10 mL PO Q6H PRN 300 mL 0RF cough 10 days methylprednisolone (Medrol (Neo)) PO PER PKG DIR 21 ea 0RF 6 days Coding Level of Care Code Est Pt Level 4 (38567) Diagnoses Moderate persistent asthma with acute exacerbation J45.41 Asthma severity: moderate Asthma persistence: persistent Asthma complication type: with acute exacerbation Chronic pulmonary embolism without acute cor pulmonale, unspecified pulmonary embolism type I27.82 Pulmonary embolism type: unspecified Chronicity: chronic Acute cor pulmonale presence: without acute cor pulmonale Primary insomnia F51.01 Insomnia type: primary Pleuritic chest pain R07.81 Acute deep vein thrombosis (DVT) of right peroneal vein I82.451 DVT location: lower extremity Affected thrombotic vein of extremity: peroneal Chronicity: acute Laterality: right Pulmonary nodules R91.8 Time Spent (min) 18
== END 2024-09-23 14:51 | disposition home or self-care (01) ==
LOC: HO.HPS 13:51
PROVIDERS: PCP Internal Medicine; Visit Provider Hospitalist
DX: J45.41 Moderate persistent asthma with (acute) exacerbation (principal); I27.82 Chronic pulmonary embolism; F51.01 Primary insomnia; R07.81 Pleurodynia; I82.451 Acute embolism and thrombosis of right peroneal vein; R91.8 Other nonspecific abnormal finding of lung field
CPT/HCPCS: 99214

== ENCOUNTER → 2024-09-23 13:50 | Outpatient (BNVA) | payer OTHER, SELFPAY | PROVIDERS: PCP Internal Medicine; Visit Provider Hospitalist | DX: J45.41 Moderate persistent asthma with (acute) exacerbation (principal); G47.00 Insomnia, unspecified; R07.81 Pleurodynia; I26.99 Other pulmonary embolism without acute cor pulmonale; R91.8 Other nonspecific abnormal finding of lung field | CPT/HCPCS: 99212 ==

== ENCOUNTER 2025-01-30 14:13 | Outpatient (AMB) | payer OTHER, SELFPAY ==
[2025-01-30 14:20] VITALS: BP 122/80; PULSE 72; O2SAT 97; BMI 40.7
--- NOTE | 2025-01-30 14:20 | MHC.OFFVIS ---
Vital Signs 01/30/25 14:20 Height 5 ft 4 in Weight 236 lb 15.951 oz BMI 40.7 BP 122/80 Blood Pressure Location Lt brachial Position Sitting Pulse 72 Pulse Source Pulse Oximeter Pulse Oximetry (%) 97 Oxygen Delivery Method Room Air Intake Visit Reasons: Asthma Accompanied by: Self / Same As Patient Allergies venlafaxine Allergy (Intermediate, Verified 01/30/25 14:20) Anxiety HPI Comments Details: The patient is a 49-year-old woman with a known history of migraines who apparently was in her usual state health until she started developing some intermittent right-sided chest discomfort the month of March and April. Her symptoms became significantly worse with severe pleuritic chest discomfort and ended up going to the [facility] Emergency Department. There she did undergo a CT scan of the chest demonstrating multiple pulmonary nodules in the right middle right lower lung zones with pulmonary infarct as well as what appeared to be right ventricular strain. Her echocardiogram demonstrated some degree of comes certain triggers hypertrophy of the left ventricle but her RV apparently was working well. Her pulmonary pressures were not estimated. The patient initially placed on Eliquis although she had significant side effects with fatigue. Ultimately switch over to Xarelto. The Xarelto she has been getting headaches. Although she has had a history of migraines as well. As far as the blood clots is not clear the etiology. The patient denies any recent surgeries or prolonged immobilization or trauma. She did have hormonal therapy with progesterone. This was removed. Fact clear she did have COVID. The patient did have exposure to someone with COVID, but, she tested negative in the ER. She then was tested for antibiotics which are positive but, she was already vaccinated making it difficult to interpret the results. Indeed she is concerned about having lifelong anticoagulation which would be the treatment for unprovoked pulmonary emboli. The patient shortly beyond therapy for a year before start talking about adjusting her therapy. I will request records from [facility] regarding her hypercoagulable workup that she may have had as far as to continue the evaluation. In addition to that the patient has significant migraines. She also has daytime drowsiness. She uses multiple sleep aids with partial resolution of her insomnia. The patient has not had a sleep study. Therefore we will have her undergo a sleep study in order to follow her elevated [place] score of 14/24. And also hopefully if she does have sleep apnea and is treated her significant headaches will improve. Will follow-up after the sleep study. 04/26/2021 the patient is here for a pulmonary follow-up visit. Overall she feels about the same. Still having severe migraines which is very debilitating for her. She is currently working with a migraine specialist. In the meantime she did have a sleep study which was completely normal. She does not have any evidence of any sleep apnea or hypoxia at this time. However, she still has a very hard time sleeping. She has tried multiple sleep aids without any significant improvement. Will try to provide her with a alternative regimen to allow her to have affecting sleep. In the meantime which still waiting for the CTs from [facility] in order to review the images with her. We already had requested them before but it did not arrive so therefore we have called the hospital again to get The images. Once available were reviewed together. For now she continues to use the anticoagulation therapy as this will be lifelong for unprovoked clots. Patient also complains of sinus discomfort and pressure. Unfortunately she does have a blood pressure when she cannot use Sudafed. Will optimize her nasal therapy further at this time. 11/10/2023 the patient is here for a pulmonary follow-up visit. She has multiple complaints experiencing some pleuritic left-sided chest pain. The symptoms seem to be at times moderate to severe. Hard to take a deep breath in. Feels sharp in nature. In addition to that she does get some tightness sensation around the chest. She does use her rescue inhaler with some partial relief. She continues on the Xarelto for the history of blood clots. He has been tolerating the full dose. Sometimes she bruises she does not like that but she understands that she needs to take it. The patient also has been having some difficulty sleeping. She has been having some increased daytime drowsiness. She has also gained weight. [place] score is elevated 10/24. She is scheduled to undergo a sleep study through her primary care. In the meantime we are going to request additional blood work looking for etiologies for pleuritis specially with pleuritic chest pain. The patient also will maximize her respiratory therapy by adding a maintenance inhaler. After the blood work will talk about additional imaging studies. Her last CT scan of the chest was CTA back in 2020 demonstrating resolution of the PE that she had initially. 02/16/2024 the patient is here for a follow-up ER visit. Apparently she was in usual state health until for the last 4 weeks when she started developing cramping of her lower extremities. Reasons having some chest discomfort as well. She is also having more shortness of breath and tachycardia. She did talk to her primary care who ordered an ultrasound of her leg. Demonstrating a DVT of her right lower extremity. The patient was placed on a loading dose Xarelto. Apparently prior to that she had come off the Xarelto for a dental procedure. Unfortunately was prolonged because she was going to have another dental procedure. Therefore she spent some time off the Xarelto altogether. Prior to that she was on low-dose. At this point she is on a loading dose of 50 mg twice a day. She will likely go down to 20 mg daily after the 21 days. She will follow-up with her PCP for that. During the office visit we did go for a walking oximetry. The patient's pulse ox was excellent under%. However, heart rate was up to 120 beats per minute with minimal activity. She was visibly dyspneic with dyspnea score of 6/10. Will go ahead and request a CTA with suspicion that she could have had a subacute PE in addition to that we check an echocardiogram to make sure she does not have any pulmonary hypertension due to the PE. She will continue with Xarelto for now. The patient understands that if she is ever going to need a procedures going to have to bridge with Lovenox. Will talk about that further. The patient also will get a repeat ultrasound of the leg in about 6-8 weeks to make sure the cause of gone. For now any elective procedures be on hold. If she needs any semi elective procedures done prior to the clots been gone she can always call and we can work around. She is going to continue with her inhalers. She patient does feel some chest tightness. She is also having a cough. I will send her a Z-Neo to make sure we can improve any evidence of bronchitis. 03/03/2024 the patient is here for a pulmonary follow-up visit. The patient overall is feeling a little better although she still having dyspnea on exertion. She did have an echocardiogram which is reassuring no evidence of any pulmonary hypertension. She also had a CTA. No definitive evidence of pulmonary emboli although the patient did have a irregular pleural-based density on the right mid lung area this indeed could be a small pulmonary infarct or inflammation. She also has evidence of ground-glass opacities bilaterally explain her shortness of breath. Will go ahead and treat her with a low-dose steroids seem this will help her in addition to that she is going to drop her Diamox from twice a day to once a day since it can affect her acid-base status and therefore could worsen her respiratory drive. In addition to that will give her some Lasix for 3 days to try to help her fluid status. She still awaiting her sleep study. Will follow-up in 6-8 weeks. She will continue with the Xarelto. 04/28/2024 the patient is here for a pulmonary follow-up visit. Overall she is doing okay. Breathing is overall better. Is reassuring about her CTA and also her echocardiogram is reassuring. She does take the Xarelto as prescribed. The patient does complaint of difficulty sleeping. She is currently on multiple medications including Ambien and also trazodone. Although the trazodone causes her to have significant dry mouth a bothers her. The patient likely also has significant sleep apnea that is affecting her sleep. Therefore she has poor sleep hygiene. She was supposed to have a sleep study but she has not been able to do it because of other psychosocial issues. The patient needs to have the sleep study. Her [place] score continues to be elevated 03/06. I am hopeful that she can call and reschedule her sleep study soon. In the meantime will optimize her sleep therapy by switching her from it regular Ambien to Ambien CR for the hope of a longer duration coverage from the medication. 06/20/2024 the patient is here for a pulmonary follow-up visit. She is complaining of right-sided pleuritic discomfort. Moderate severity. She almost went to the ER. She continues on Xarelto. She has not missed. We did look at her previous CT scans. Her initial diagnosis of pulmonary emboli was back in 05/02/2020. Subsequently after that she had a CT scan during the springtime of 2020 and more recently 03/02/2024 demonstrating no evidence of any PE. However, she does have a 6 mm pulmonary nodule that will need follow-up. In the meantime she has this pleuritic discomfort. She also noticed have a rash in the face. Consistent with a malar rash. We did assess for connective tissue diseases previously. But it was all negative. Will go ahead and requested again. Will also request a D-dimer since it feels like when she had blood clots. If the D-dimer is elevated will go ahead and do a CTA. If not will order a regular CT scan to follow-up with the pulmonary nodule. The patient the meantime will try a small dose of hydroxychloroquine to see if this provides some relief. She is already on Medrol for significant headaches. Also to note she did undergo a stress test at [facility]. We do not have the results. And she also underwent a sleep [facility] and we do not have the results either. Hopefully we can have them sent over to us so we can review them. 09/23/2024 the patient is here for sick visit. She had a CT scan back in the beginning of September demonstrating stable pulmonary nodule but what appeared to be a space disease inflammatory changes to the right hemithorax suggesting infectious process. She had been coughing at the time. She was started on a Z-Neo. However, her cough has persisted. Significant shortness of breath and chest tightness and headaches because of the cough. She can not sleep at night. Hard to expectorate. She came in for sick visit. On exam is hard to listen to her lungs because of the cough. Appears to be mainly during the exhalation phase suggesting of small airways disease and likely a component of bronchiolitis. Will go ahead and give her a nebulized treatment 1st and she will need additional antibiotics and likely cortical steroids. 01/30/2025 the patient is here for pulmonary follow-up visit. She has multiple complaints. Has significant sinus headaches. Moderate to severe. Very tender specially around the maxillary sinuses and also around her eyes. She feels a lot of pressure. She also has significant migraines that she has been treated for. She has been gaining weight which she has been concerned. She has a hard time sleeping because her sleep apnea. She does wake up tired with the [place] score of 11/24. She needs to have repeat sleep study at this time. In the meantime will go ahead and treat her for significant sinusitis. The patient continues to have ongoing symptoms therefore CT scan of the sinuses may be helpful. If abnormal she may need to follow-up with ENT for further interventions. She does continue to use her respiratory inhalers with good effect. Will go ahead and increase her nasal therapy for now. [facility] Medical History (Updated 01/30/25 @ 20:32 by Trevor Rainey MD) Sinusitis MARIA FERNANDA (obstructive sleep apnea) Pulmonary nodules DVT (deep venous thrombosis) Pleuritic chest pain Asthma Insomnia Pulmonary emboli Migraine Social History Patient Tobacco Use Status: Never used Tobacco Review of Systems Const Reports fatigue and Reports headache(s) ENT Reports headache(s), Reports nasal congestion, Reports nasal obstruction, Reports sinus pain and Reports sinus pressure Resp Reports chest congestion, Reports cough and Reports wheezing Neuro Reports headache(s) Endo Reports fatigue Aller/Immun Reports wheezing Physical Exam Vital Signs: Last Vital Signs Pulse 72 01/30/25 14:20 BP 122/80 01/30/25 14:20 Pulse Ox 97 01/30/25 14:20 Oxygen Delivery Method Room Air 01/30/25 14:20 BMI result Body Mass Index 40.7 Const General: alert Neck Neck: Yes normal visual inspection, Yes full ROM and Yes no lymphadenopathy Chest Chest palpation & inspection: normal inspection of the chest Resp Effort & Inspection: normal respiratory effort Auscultation: clear to auscultation bilaterally Cardio Rate: regular rate Rhythm: regular rhythm Heart sounds: S1 normal heart sound present and S2 normal heart sound present GI Palpation (GI): Soft to palpation and nontender Auscultation: normal bowel sounds Skin General skin exam: rashes and/or lesions noted Assessment & Plan Assessment & Plan (1) Asthma: Code(s): J45.909 - Unspecified asthma, uncomplicated Category: Medical Qualifiers: Asthma complication type: with acute exacerbation Asthma persistence: persistent Asthma severity: moderate Qualified Code(s): J45.41 - Moderate persistent asthma with (acute) exacerbation (2) Pulmonary emboli: Code(s): I26.99 - Other pulmonary embolism without acute cor pulmonale Category: Medical Qualifiers: Acute cor pulmonale presence: without acute cor pulmonale Chronicity: chronic Pulmonary embolism type: unspecified Qualified Code(s): I27.82 - Chronic pulmonary embolism (3) Insomnia: Code(s): G47.00 - Insomnia, unspecified Category: Medical Qualifiers: Insomnia type: primary Qualified Code(s): F51.01 - Primary insomnia (4) DVT (deep venous thrombosis): Code(s): I82.409 - Acute embolism and thrombosis of unspecified deep veins of unspecified lower extremity Category: Medical Qualifiers: Affected thrombotic vein of extremity: peroneal Chronicity: acute DVT location: lower extremity Laterality: right Qualified Code(s): I82.451 - Acute embolism and thrombosis of right peroneal vein (5) Pulmonary nodules: Code(s): R91.8 - Other nonspecific abnormal finding of lung field Category: Medical (6) MARIA FERNANDA (obstructive sleep apnea): Code(s): G47.33 - Obstructive sleep apnea (adult) (pediatric) Category: Medical (7) Sinusitis: Code(s): J32.9 - Chronic sinusitis, unspecified Category: Medical Qualifiers: Sinusitis location: unspecified location Chronicity: subacute Qualified Code(s): J01.90 - Acute sinusitis, unspecified (8) Migraine: Code(s): G43.909 - Migraine, unspecified, not intractable, without status migrainosus Category: Medical Qualifiers: Migraine type: unspecified Status migrainosus presence: without status migrainosus Intractability: intractable Qualified Code(s): G43.919 - Migraine, unspecified, intractable, without status migrainosus Plan CT sinus Afrin x 5 days start Doxycycline Reglan as needed (monitor for tremors) Nebulizer therapy continue Xorelto Symbicort ambien CR 12.5mg Home PSG weight management, If she does have MARIA FERNANDA she would qualify for Zepbound follow-up in 3-4 months Orders: Orders RT home sleep study Today G47.33 - Obstructive sleep apnea (adult) (pediatric) CT sinus wo IV con Today G43.919 - Migraine, unspecified, intractable, without status migrainosus, J01.90 - Acute sinusitis, unspecified Medications: New oxymetazoline 0.05% (Afrin Sinus (oxymetazoline)) 2 sprays intranasal Q12H PRN 22 mL 0RF nasal congestion 5 days azelastine administer into each nostril 2 sprays intranasal BID 30 mL 6RF 30 days metoclopramide HCl 5 mg PO QIDACHS 60 tabs 1RF 30 days doxycycline hyclate 100 mg PO BID 20 caps 0RF 10 days Coding Level of Care Code Est Pt Level 4 (06292) Complex EM visit Add On G2211 Diagnoses Moderate persistent asthma with acute exacerbation J45.41 Asthma complication type: with acute exacerbation Asthma persistence: persistent Asthma severity: moderate Chronic pulmonary embolism without acute cor pulmonale, unspecified pulmonary embolism type I27.82 Acute cor pulmonale presence: without acute cor pulmonale Chronicity: chronic Pulmonary embolism type: unspecified Primary insomnia F51.01 Insomnia type: primary Acute deep vein thrombosis (DVT) of right peroneal vein I82.451 Affected thrombotic vein of extremity: peroneal Chronicity: acute DVT location: lower extremity Laterality: right Pulmonary nodules R91.8 MARIA FERNANDA (obstructive sleep apnea) G47.33 Subacute sinusitis, unspecified location J01.90 Sinusitis location: unspecified location Chronicity: subacute Intractable migraine without status migrainosus, unspecified migraine type G43.919 Migraine type: unspecified Status migrainosus presence: without status migrainosus Intractability: intractable Time Spent (min) 17
== END 2025-01-30 14:45 | disposition home or self-care (01) ==
LOC: HO.HPS 14:14
PROVIDERS: PCP Internal Medicine; Visit Provider Hospitalist
DX: J45.41 Moderate persistent asthma with (acute) exacerbation (principal); I27.82 Chronic pulmonary embolism; F51.01 Primary insomnia; I82.451 Acute embolism and thrombosis of right peroneal vein; R91.8 Other nonspecific abnormal finding of lung field; G47.33 Obstructive sleep apnea (adult) (pediatric); J01.90 Acute sinusitis, unspecified; G43.919 Migraine, unspecified, intractable, without status migrainosus
CPT/HCPCS: 99214

== ENCOUNTER → 2025-01-30 14:13 | Outpatient (BNVA) | payer OTHER, SELFPAY | PROVIDERS: PCP Internal Medicine; Visit Provider Hospitalist | DX: J45.41 Moderate persistent asthma with (acute) exacerbation (principal); J01.90 Acute sinusitis, unspecified; I27.82 Chronic pulmonary embolism; I82.451 Acute embolism and thrombosis of right peroneal vein; G47.33 Obstructive sleep apnea (adult) (pediatric); F51.01 Primary insomnia; G43.919 Migraine, unspecified, intractable, without status migrainosus; R91.8 Other nonspecific abnormal finding of lung field; Z79.01 Long term (current) use of anticoagulants | CPT/HCPCS: 99212 ==

== ENCOUNTER → 2025-04-03 11:40 | Outpatient (REF) | payer OTHER, SELFPAY ==
--- OUTSIDE RECORDS SUMMARY | 2024-10-20 06:30 | XMS_ITS ---
Author Organization [facility] Address [address] [place] [address] Care Team Providers Care Hyperbaric Technologist Name Role Phone DALLAS BARAJAS Primary Care Provider REASON FOR VISIT 41/ fall down stairs 7/7 right side pain Encounters Encounter Location Date Provider Diagnosis [place] [id number] 10/20/2024 DALLAS BARAJAS Plan Of Treatment Next Appt Details Provider Name:DALLAS BARAJAS , 04/12/2025 02:30:00 PM, [address] [place], [address], Progress Notes * LUKE BIANCHIDOB: 7 (49 yo F)Acc No.[id number]:10/20/2024 Progress Notes Patient: LUKE ZUNIGA Provider: Altaf BARAJAS M.D. :1975 A ge:49 Y S ex:Female Date:10/20/2024 Address:[address] [place], [place] [id number] Subjective: * Chief Complaints: * 4 1/ fall down stairs 7/7 right side pain Billing Information: * Procedure Codes: * Electronic signature of DALLAS BARAJAS MD on 04/03/2025 at 02:57 PM EST Sign off status: Pending * Provider: Altaf BARAJAS M.D. Date: 0 10/20/2024 Generated for Carlton james/Anthony/Chavo on: 1 06/04/2024 02:57 PM EST
--- OUTSIDE RECORDS SUMMARY | 2024-11-17 08:45 | XMS_ITS ---
Author Organization [facility] Address [address] [place] [address] Care Team Providers Care Teaching Dietitian Name Role Phone DALLAS BARAJAS Primary Care Provider [phone] REASON FOR VISIT 41/ 1mo Encounters Encounter Location Date Provider Diagnosis [address] [address] 11/17/2024 DALLAS BARAJAS Plan Of Treatment Next Appt Details Provider Name:DALLAS BARAJAS , 04/12/2025 02:30:00 PM, [address] [place], [address], Progress Notes * TASHROSE WHEELERJOSÉ ANTONIODOB: 7 (49 yo F)Acc No.[id number]:11/17/2024 Progress Notes Patient: LUKE ZUNIGA Provider: Altaf BARAJAS M.D. :1975 A ge:49 Y S ex:Female Date:11/17/2024 Address:[address] [place] [address] [place], [phone] Subjective: * Chief Complaints: * 4 1/ 1mo * Electronic signature of DALLAS BARAJAS MD on 04/03/2025 at 02:57 PM EST Sign off status: Pending * Provider: Altaf BARAJAS M.D. Date: 0 11/17/2024 Generated for Carlton james/Anthony/eTransmitting on: 1 06/04/2024 02:57 PM EST
--- OUTSIDE RECORDS SUMMARY | 2024-11-18 04:45 | XMS_ITS ---
Author Organization [facility] Address [address] [place] [address] Care Team Providers Care Machine Binding Folder Name Role Phone DALLAS BARAJAS Primary Care Provider [phone] REASON FOR VISIT 41/ 1mo Encounters Encounter Location Date Provider Diagnosis [address] [address] 11/18/2024 DALLAS BARAJAS Plan Of Treatment Next Appt Details Provider Name:DALLAS BARAJAS , 04/12/2025 02:30:00 PM, [address] [place], [address], Progress Notes * TASHROSE WHEELERJOSÉ ANTONIODOB: 7 (49 yo F)Acc No.[id number]:11/18/2024 Progress Notes Patient: LUKE ZUNIGA Provider: Altaf BARAJAS M.D. :1975 A ge:49 Y S ex:Female Date:11/18/2024 Address:[address] [place] [address] [place], [phone] Subjective: * Chief Complaints: * 4 1/ 1mo * Electronic signature of DALLAS BARAJAS MD on 04/03/2025 at 02:56 PM EST Sign off status: Pending * Provider: Altaf BARAJAS M.D. Date: 0 11/18/2024 Generated for Carlton james/Anthony/eTransmitting on: 1 06/04/2024 02:56 PM EST
--- OUTSIDE RECORDS SUMMARY | 2025-03-06 08:30 | XMS_ITS ---
Author Organization [facility] Address [address] [place] [address] Care Team Providers Care Solid State Tester Name Role Phone DALLAS BARAJAS Primary Care Provider [phone] REASON FOR VISIT 41/ several issues Encounters Encounter Location Date Provider Diagnosis [address] [id number] 03/06/2025 DALLAS BARAJAS Plan Of Treatment Next Appt Details Provider Name:DALLAS BARAJAS , 04/12/2025 02:30:00 PM, [address] [place] [address], [phone], Progress Notes * LUKE BIANCHIDOB: 7 (49 yo F)Acc No.[id number]:03/06/2025 Progress Notes Patient: LUKE ZUNIGA Provider: Altaf BARAJAS M.D. :1975 A ge:49 Y S ex:Female Date:03/06/2025 Address:[address] [place], [place] [id number] Subjective: * Chief Complaints: * 4 1/ several issues Billing Information: * Procedure Codes: * Electronic signature of DALLAS BARAJAS MD on 04/03/2025 at 06:56 AM EST Sign off status: Pending * Provider: Altaf BARAJAS M.D. Date: 05/06/2024 Generated for Carlton james/Anthony/Buzzitting on: 1 06/04/2024 06:56 AM EST
--- OUTSIDE RECORDS SUMMARY | 2025-04-03 07:00 | XMS_ITS | Encounter Summary ---
Author Organization [facility] Address [address] [place] [address] Care Team Providers Care Screener Operator Name Role Phone Tim Fontanez MD Primary Care Provider [phone] Reason for Visit * Consultation (Routine) - Authorized Specialty Diagnoses / Procedures Referred By Contarmando red Referred To Contact Physical Therapy Diagnoses Migraine without aura and without status migrainosus, not intractable Chronic pain of both shoulders Beau Longoria MD Phone: tel: fax: Referral ID Status Reason Start Date Expiration Date Visits Requested Visits Authorized [id number] Authorized Specialty Services Required 09/28/2024 09/28/2025 21 21 Encounter Details Date Type Department Care Team (Latest Contact Info) Description 04/03/2025 7:00 AM EST Evaluation [facility] [address] [id number] Yari Velez PT Chronic pain of both shoulders (Primary Dx) Social History Tobacco Use Types Packs/Day Years [...] PM EDT documented as of this encounter Functional Status * Are you deaf or do you have serious difficulty hearing? Answer Date of Assessment Author No 10/25/2024 6:53 PM EDT Mooney RN * Are you blind or do you have serious difficulty seeing, even when wearing glasses? Answer Date of Assessment Author No 10/25/2024 6:53 PM EDT Mooney RN * Do you have serious difficulty walking or climbing stairs? Answer Date of Assessment Author No 10/25/2024 6:53 PM EDT Mooney RN * Do you have serious difficulty dressing or bathing? Answer Date of Assessment Author No 10/25/2024 6:53 PM EDT Mooney RN * Because of a physical, mental, or emotional condition, do you have serious difficulty doing errandsalone such as visiting the doctor? Answer Date of Assessment Author No 10/25/2024 6:53 PM EDT Mooney RN documented as of this encounter Mental Status * Because of a physical, mental, or emotional condition, do you have serious difficulty concentrating, remembering, or making decisions? (5 years old or older) Answer Entry Date Author No 10/25/2024 6:53 PM EDT Mooney RN documented in this encounter Progress Notes * Yari Velez PT - 04/03/2025 7:00 AM EST [facility] - Outpatient PHYSICAL THERAPY EVALUATION Date: 04/03/2025 Visit Number: 1 Patient Name: Kenia Harman : 1975 Age: 49 y.o. Gender: female Diagnosis: ICD-10-CM ICD-9-CM 1. Chronic pain of both shoulders M25.511 719.41 G89.29 338.29 M25.512 Date of Onset/Surgery: multiple years Referring Provider: Beau Longoria MD Insurance: Payor: [facility] [employer] PLAN / Plan: [employer] / Product Type: *No Product type* / Patient identified by: Yari Velez PT Language: Speaks and understands Gambian as preferred language with no certified court/medical interpreter required Chart Reviewed: Yes Medications: Medications Ordered Prior to Encounter[1] Discussed current medications that may impact therapy. Medication list obtained and reviewed. Referto document in medical record. Advised Patient to contact MD with any questions regarding medications and importance of managing medication information. has a past medical history of History of pulmonary embolus (PE), Hypertension, Migraines, and Seasonal allergies. has a past surgical history that includes Gastric bypass (07/01/2016); Breast reduction (1999); andNeck surgery (11/27/2022). is allergic to venlafaxine. Precautions: History of DVT and PE on xarelto, pt noting R calf soreness and noted it feels similar to previous DVTs. (PT educated pt on need for follow up with MD to clear her prior to exercising) Cervical disc replacement in 2022 Concurrent Services: No Concurrent Services Previous Medical Care/Therapy: cervical disc replacement. For migraines pt has had botox. 10/26/2024 INDICATION: right eye pain, right eye redness, pain worse with movement to left CT orbits, sella turcica and IAC's with contrast Comparison: None provided Findings: No acute fractures. No dislocations. Orbital contents are normal. There are no pituitary or sellar masses. The internal auditory canals and temporal bones are unremarkable. The middle ear structures are normal. Visualized intracranial contents are within normal limits. There is a small retention cyst in the right maxillary sinus. Paranasal sinuses are otherwise unremarkable. No foreign bodies. IMPRESSION: No significant abnormalities are noted. 10/25/2024 INDICATION: Cerebral hemorrhage suspected CT head without contrast Comparison: None provided Findings: No intracranial mass, midline shift, hydrocephalus, or acute hemorrhage. No acute process in sinuses or mastoids. No acute bony abnormality. IMPRESSION: Impression: No acute intracranial process SUBJECTIVE History of Present Illness/Subjective Report: Per EMR 48 yo female with PMH asthma , DLD , Cervical disc disease s/p C5-6, C6- 7 artificial disc replacement on 11/27/2022 with no significant improvement , gastric sleeve , breast reduction , bleeding disorder history of PE and DVT on xarelto. Pt presenting today for migraine and B shoulder pain. Pt notes migraines since she was 5 years old.Pt noting B shoulder pain x2 years with no relief s/p cervical disc replacement. Pt notes most painin shoulders and and neck with prolonged positioning, lifting, and cervical flexion. Pt uses ice toassist as needed. Pt unable to take tylenol or ibuprofen due to being on xarelto for history of PE and DVT. In addition to pain pt noting numbness/tingling B UE and Les. Current Functional Limitations: Reported by Patient unable to work, assists with lifting, difficulty with cervical flexion for any prolonged periods (difficulty washing dishes) Is the patient at Risk for Falls: No Pain: VAS: 5/10 Location/descriptors: B upper trap, neck, ORTIZ OBJECTIVE General Observations/Comments: pleasant and agreeable to participate Vitals: There were no vitals filed for this visit. Posture: rounded shoulders, forward head, dowagers hump noted Extremity Assessments: L shoulder (6/10 pain with movement) Flexion: 140 Abduction: 125 ER: 40 IR: 60 R shoulder (7/10 pain with movement) Flexion: 115 Abduction: 115 ER: 40 IR: 60 Spine Assessment: Cervical Ext: 30 Flex:40 Sidebend: 20 Rotation L: 65 Rotation: R 60 Palpation: TTP: B upper trap, B levator, B pec, B infraspinatus Moderate myofascial restrictions in all muscle groups noted above. Special Tests: L shoulder Neers: (-) L shoulder Solis Aramis: (-) R shoulder Neers: (+) R shoulder Solis Aramis: (+) ULNT: (+) on B Ues. HEP: education shoulder rolls and wall slides into flexion ASSESSMENT/Response to Treatment: Kenia Harman is a 49 y.o. female presenting for outpatient physical therapy evaluation with complaints of chronic migraine and shoulder pain. Significant clinical findings include: reduced AROM in C spine and Ues. Reduced flexibility and (+) myofascial restrictions . Patients progress may be limited by chronicity of symptoms. Skilled Physical therapy is medically necessary to reduce pain and maximize function. Rehabilitation Potential: Rehab Potential: Condition Has Potential to Improve Motivation for Rehab: Good Support Structure: Good Learning Needs: Were Patient Learning needs assessed: Yes Learning Preferences: Explanation, Demonstration, and Printed Materials Barriers to Learning: No Barriers to Learning Patient Education: [x] Discussed, with patient and/or caregiver, the recommended plan of care/goals, the importance oftherapy and appointment compliance in order to achieve goals in a timely manner. Education provided: POC, HEP: shoulder rolls and wall slides into flexion Education Provided To: Patient utilizing Explanation, Demonstration, and Printed Material as mode(s) of education. 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 LTG for discharge BILLING TOTAL TREATMENT TIME: 45 Minutes Evaluation Medium Complexity Justification ::: A history of present problem with 1 - 2 personal factors and/or co-morbidities that impact the plan of care, An examination of body systems using standardized tests and measures in addressing a total of 3 or more elements from any of the following bodystructures and functions, activity limitations, and/or participation restrictions, and Moderate time effort (typically 30 minutes) spent [id number] with the patient and/or family Documentation completed by Yari Velez PT [facility] - [address] [address] Dept: [phone] Dept PATIENT NAME: Kenia Harman : 1975 Certification: This is to certify that the above named patient, who is under my care, requires skilled Therapy services as described in the above treatment plan. I further certify that the services outlined in this plan are skilled and medically necessary. I have reviewed this plan for rehabilitation services, and I recommend that these services continue to meet the above stated goals and plan. SIGNATURE: DATE Beau Longoria MD Referring provider [1] Current Outpatient Medications on File Prior to Visit Medication Sig Dispense Refill acetaZOLAMIDE (DIAMOX) 250 mg tablet Take 2 tablets (500 mg total) by mouth at bedtime. albuterol HFA (Ventolin HFA) 90 mcg/actuation inhaler 2 PUFFS NEEDED INHALATION 4 TIMES A DAY azithromycin (ZITHROMAX) 500 mg tablet Take 1 tablet (500 mg total) by mouth 1 (one) time each day.for 5 days lddocuuske-xtflpagtvczfy-gepzjhml (FIORICET, ESGIC) 50-325-40 mg per tablet DULoxetine (CYMBALTA) [address] capsule Take 2 Capsules by mouth daily for 60 days. ergocalciferol (VITAMIN D-2) 1,250 mcg (50,000 unit) capsule TAKE 1 CAPSULE (50,000 UNITS TOTAL) BYMOUTH ONCE WEEKLY 4 capsule 11 gabapentin (NEURONTIN) 400 mg capsule TAKE 3 CAPSULES BY MOUTH EVERY DAY AT BEDTIME FOR 30 DAYS 90 Linzess 72 mcg capsule TAKE 1 CAPSULE BY MOUTH EVERY DAY 30 capsule 5 magnesium oxide (MAG-OX) 400 mg magnesium tablet Take 1 tablet (400 mg total) by mouth 1 (one) timeeach day. 30 tablet 5 omeprazole (PriLOSEC) [address] capsule TAKE 1 CAPSULE BY MOUTH EVERY DAY BEFORE A MEAL riboflavin (VITAMIN B2) 400 mg tablet Take 1 tablet (400 mg total) by mouth 1 (one) time each day. 30 tablet 5 rivaroxaban (Xarelto) 20 mg tablet TAKE 1 TABLET BY MOUTH EVERY DAY EVENING MEAL rosuvastatin (CRESTOR) 40 mg tablet Take 1 tablet (40 mg total) by mouth 1 (one) time each day. Symbicort 160-4.5 mcg/actuation inhaler INHALE 2 PUFFS INTO LUNGS 2 TIMES A DAY FOR 30 DAYS traZODone (DESYREL) 100 mg tablet TAKE 1 TABLET AT BEDTIME ORAL ONCE A DAY FOR 30 DAYS ubrogepant (UBRELVY) 100 mg tablet Take 1 tablet (100 mg total) by mouth 1 (one) time if needed formigraine. 10 tablet 3 valACYclovir (VALTREX) 500 mg tablet Take 1 Tablet by mouth daily. verapamil ER (VERELAN PM) 300 mg 24 hr capsule Take 300 mg by mouth. zavegepant 10 mg/actuation spray,non-aerosol Administer 10 mg into affected nostril(s) if needed (migraine). 9 each 3 zolpidem (AMBIEN) 10 mg tablet TAKE 1 TABLET BY MOUTH AT BEDTIME NEEDED FOR SLEEP FOR 30 DAYS No current facility-administered medications on file prior to visit. documented in this encounter Plan of Treatment Upcoming Encounters Date Type Department Care Team (Late st Contact Info) Description 04/14/2025 12:30 PM EST Treatment [facility] Speech Therapy [address] [phone] Roberta Boyle CCC-POLYMER MATERIALS CONSULTANT 04/19/2025 1:40 PM EST Procedure visit [address] [phone] Beau Longoria MD [address] [place] [address] 04/19/2025 3:00 PM EST Treatment [address] [phone] Yari Velez, PT 04/21/2025 11:00 AM EST Treatment [address] [phone] Yari Velez, PT 04/25/2025 10:30 AM EST Treatment [address] [phone] Yari Velez, PT 04/28/2025 11:30 AM EST Treatment [address] [address] Harjeet Garcia, COSTUME TECHNICIAN 05/02/2025 11:30 AM EST Treatment [address] [phone] Yari Velez, PT 05/05/2025 11:30 AM EST Treatment [facility] [address] [phone] Harjeet Garcia, COSTUME TECHNICIAN 05/10/2025 11:00 AM EST Treatment [facility] [address] [address] Harjeet Garcia, COSTUME TECHNICIAN 05/12/2025 11:00 AM EST Treatment [facility] [address] [address] Yari Velez, PT documented as of this encounter Goals Goal Patient Goal Type Associated Problems Recent Progress Patient-Stated? Author POLYMER MATERIALS CONSULTANT LTG Roberta Gaming CCC-POLYMER MATERIALS CONSULTANT Note: Patient will demonstrate cognitive linguistic skills to facilitate functional communication and completion of daily responsibilities. POLYMER MATERIALS CONSULTANT STGs Roberta Gaming CCC-POLYMER MATERIALS CONSULTANT Note: Patient will participate in continued cognitive-linguistic assessment. Pt will participate in ongoing training of internal/external memory strategies and attention strategies, and ID pertinent techniques to use in daily life independently. Patient will complete working memory exercises with 80% acc given min cues. Patient will complete functional attention exercises with 80% acc given min cues. Patient will participate in development of further goals of care, following continued assessment. documented as of this encounter Visit Diagnoses Diagnosis Chronic pain of both shoulders- Primary documented in this encounter Care Teams Screener Operator Relationship Specialty Start Date End Date Tim Fontanez MD [address] [place] [id number] PCP - General Internal Medicine 07/19/12 documented as of this encounter
--- OUTSIDE RECORDS SUMMARY | 2025-04-03 14:57 | XMS_ITS | Patient Health Record ---
Author Organization [facility] Address [address] [place] [address] Care Team Providers Care Printed Circuit Photographer Name Role Phone Riley Cat Primary Care [...] MOUTH EVERY DAY AT BEDTIME FOR 30 DAYS; Duration: 90 Active acetaZOLAMIDE 250 MG 2 tablets Orally every night; Duration: 90 days Active Riboflavin 100 MG 2 tablets Orally bid Active Zolpidem Tartrate 10 MG 1 tablet at bedt agustina as needed Orally Once a day Active Multivitamin - 1 tablet Orally Once a day Active Topiramate 100 MG TAKE 2 TABLETS BY MOUTH DAILY AT BEDTIME; Duration: 90 Active DULoxetine HCl 60 MG 1 [...] Notes Problem Chronic intractable migraine without aura ([id number] ) Chronic migraine without aura, intractable, with status migrainosus (G43.711) Active confirmed Plan Of Treatment No Information Insurance Providers Payer Name Payer Address Payer Phone Subscriber Number Group Number Insured Name Patient Relationship to Insured Coverage Start Date Coverage End Date [facility] [employer] [facility] [address] [address] [id number] Kenia Harman Self - patient is the insured 2 Medical (General) History Medical History History ICD Code Other medical problems inclu de an acute pulmonary embolism on 05/11/20, for which she was hospitalized at [facility] for 3 days. She was anticoagulated with Eliquis but it made her very weak and tired, then switched to Xarelto, which she continues to take. She also has hypertension and metabolic syndrome. She had an endometrial ablation some time ago and her headaches improved transiently after that. Medical imaging includes an MRI scan at [facility] 10/01, said to be normal.
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
--- OUTSIDE RECORDS SUMMARY | 2025-04-03 14:57 | XMS_ITS | Clinical Summary ---
Author Organization [facility] [address] [facility] Address [address] [place] [address] Phone Care Team Providers Care Home Health Billing Specialist Name Role Phone Tim Fontanez MD Primary Care Provider [phone] Allergies Active Allergy Reactions Criticality Noted Date Comments Venlafaxine 06/29/2024 Medications butalbital-aceta minophen-caffein e (FIORICET, ESGIC) 50-325-40 mg per tablet 3 [...] A DAY FOR 30 DAYS 4 Active rosuvastatin (CRESTOR) 40 mg tablet Take 1 tablet (40 mg total) by mouth 1 (one) time each day. Active acetaZOLAMIDE (DIAMOX) 250 mg tablet Take 2 tablets (500 mg total) by mouth at bedtime. Active Linzess 72 mcg capsuleIndicatio ns:Generalized abdominal pain TAKE 1 CAPSULE BY MOUTH EVERY DAY 30 capsule 5 5 Active zavegepant 10 mg/actuation spray,non-aeroso lIndications:Bennie rajinder without aura and without status migrainosus, not intractable Administer 10 mg into affected nostril(s) if needed (migraine). 9 each 3 5 Active magnesium oxide (MAG-OX) 400 mg magnesium tablet Take 1 tablet (400 mg total) by mouth 1 (one) time each day. 30 tablet 5 5 Active ubrogepant (UBRELVY) 100 mg tabletIndication s:Chronic migraine with aura without status migrainosus, not intractable Take 1 tablet (100 mg total) by mouth 1 (one) time if needed for migraine. 10 tablet 3 5 Active riboflavin (VITAMIN B2) 400 mg tablet Take 1 tablet (400 mg total) by mouth 1 (one) time each day. 30 tablet 5 5 Active ergocalciferol (VITAMIN D-2) 1,250 mcg (50,000 unit) capsule TAKE 1 CAPSULE (50,000 UNITS TOTAL) BY MOUTH ONCE WEEKLY 4 capsule 11 5 Active Active Problems Problem Noted Date Diagnosed Date [...] undergoing full workup including mammogram and annual [employer]OP [employer] exam as well as basic blood tests. I think she should be referred for formal exam to evaluate for fibromyalgia either by rheumatology or neurology if the preliminary workup is negative. Migraine without aura and wi [facility] status migrainosus, not intractable 01/01/2023 Overview (02/11/2024): Last Assessment & Plan: The patient continues to take all of her previous medication but has ongoing neck pain, diffuse body pain and her headaches. I spoke to Dr. 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 She continues to describe bilateral shoulder pain and limited mobility. a left upper extremity EMG/NCV was performed at [facility] by Dr. Blood on 11/30/2023. This [...] she would like to be referred to [facility]. She is welcome to follow-up with us in the future if there are any new concerns. Symptomatic abdominal panniculus 06/07/2019 Encounters Date Type Department Care Team Description 04/03/2025 7:00 AM EST Evaluation [facility] [address] [phone] Yari Velez, PT Chronic pain of both shoulders (Primary Dx) 03/28/2025 2:00 PM EST Evaluation [facility] [address] [phone] Roberta Boyle, RUPAL-MULTI CRAFT MAINTENANCE TECHNICIAN Memory problem (Primary Dx) 03/28/2025 Plan of Care Documentation [facility] [address] [phone] 02/24/2025 2:30 PM EST Telemedicine [facility] [address] [facility] [address] [place] [address] Brooke Vides PA Memory problem (Primary Dx) 01/23/2025 Telephone [facility] [address] [facility] [address] [place] [address] Beau Longoria MD 01/11/2025 10:20 AM EDT Procedure visit [facility] [address] [phone] Beau Longoria MD Chronic migraine with aura without status migrainosus, not intractable (Primary Dx) from Last 3 Months Surgical History Surgery Date Site/Laterality Comments GASTRIC BYPASS 07/01/2016 PROCEDURE: CT GASTRIC RSTCV W/BYP W/SM INT RCNSTJ LIMIT ABSRPJ; COMMENT: sleeve BREAST REDUCTION 04/13/1999 - 04/12/2000 PROCEDURE: CT BREAST REDUCTION NECK SURGERY 11/27/2022 PROCEDURE: HISTORICAL [...] Sign Reading Time Taken Comments Blood Pressure 134/84 10/26/2024 3:40 AM EDT Pulse 75 10/26/2024 3:40 AM EDT Temperature 36.8 C (98.2 F) 10/26/2024 3:40 AM EDT Respiratory Rate 17 10/26/2024 3:40 AM EDT Oxygen Saturation 97% 10/26/2024 3:40 AM EDT Inhaled Oxygen Concentration - - Weight 104 kg (230 lb) 10/25/2024 4:53 PM EDT Height 162.6 cm (5' 4 ) 10/25/2024 4:53 PM EDT Body Mass Index 39.48 10/25/2024 4:53 PM EDT Plan of Treatment Upcoming Encounters Date Type Department Care Team (Late st Contact Info) Description 04/14/2025 12:30 PM EST Treatment [facility] [address] [phone] Roberta Boyle CCC-MULTI CRAFT MAINTENANCE TECHNICIAN 04/19/2025 1:40 PM EST Procedure visit [facility] [address] [phone] Beau Longoria MD [address] [place] [address] 04/19/2025 3:00 PM EST Treatment [address] [phone] Yari Velez, PT 04/21/2025 11:00 AM EST Treatment [facility] [address] [phone] Yari Velez, PT 04/25/2025 10:30 AM EST Treatment [facility] [address] [phone] Yari Velez, PT 04/28/2025 11:30 AM EST Treatment [address] [phone] Harjeet Garcia, INTELLIGENCE RESEARCH SPECIALIST 05/02/2025 11:30 AM EST Treatment [facility] [address] [phone] Yari Velez, PT 05/05/2025 11:30 AM EST Treatment [facility] [address] [phone] Harjeet Garcia, INTELLIGENCE RESEARCH SPECIALIST 05/10/2025 11:00 AM EST [facility] [address] [phone] Harjeet Garcia, INTELLIGENCE RESEARCH SPECIALIST 05/12/2025 11:00 AM EST [facility] [address] [phone] Yari Velez, PT Health Maintenance Due Date Last Done Comments Colorectal Cancer Screening: Colonoscopy 1975 Drug Screen 1976 Non-Opioid Controlled Substance Agreement 1976 DTaP,Tdap,and Td Vaccines (1 - Tdap) 07/19/1995 Hepatitis B Vaccines (1 of 3 - 19+ 3-dose series) 07/19/1995 Cervical Cancer Screening: P ap Smear 1997 Cholesterol Screening (Lipid Panel) 03/15/2022 HIV Screening 03/15/2022 Hepatitis C Screening 03/15/2022 Social Influencers of Health Screening 03/15/2022 Depression Screening 04/13/2024 COVID-19 Vaccine (3 - 2024-2 6 season) 2024 09/27/2020, 09/06/2020 Influenza Vaccine (#1) 2024 03/02/2024 Breast Cancer Screening 03/15/2026 03/15/2024 RSV Immunization Adult Patients (1 - 1-dose 75+ series) 07/19/2051 HIB Vaccines Aged Out No longer eligi [...] 5 Years) and At-Risk Patients (6 to 49 Years) Aged Out No longer eligible b ased on patient's age to complete this topic RSV Immunization Patients Under 20 months Aged Out No longer eligible b ased on patient's age to complete this topic Varicella Vaccines Aged Out No longer eligible based on patient's age to complete this topic Goals Goal Patient Goal Type Associated Problems Recent Progress Patient-Stated? Author MULTI CRAFT MAINTENANCE TECHNICIAN LTG General Roberta Abraham, RUPAL-MULTI CRAFT MAINTENANCE TECHNICIAN Note: Patient will demonstrate cognitive linguistic skills to facilitate functional communication and completion of daily responsibilities. MULTI CRAFT MAINTENANCE TECHNICIAN [facility] General No Roberta Boyle, RUPAL-MULTI CRAFT MAINTENANCE TECHNICIAN Note: Patient will participate in continued cognitive-linguistic [...] further goals of care, following continued assessment. Procedures Procedure Name Priority Date/Time Associated Diagnosis Comments MG MAMMO DIGITAL DIAGNOSTIC W BLAS BILAT Routine 03/15/2024 2:36 PM EST Unspecified lump in the right breast, unspecified quadrant from Last 3 Months or Most Recently Relevant to Health Maintenance Results * MG Mammo Digital Diagnostic w Blas [...] year. Mammo Location: [facility], [address] [place] [address], [id number], . -------- FINAL REPORT -------- Dictated By: Marilynn Hayward Dictated Date: 03/15/2024 16:03 ET Assigned Physician: Marilynn Hayward Reviewed and Electronically Signed By: Marilynn Hayward Signed Date: 03/15/2024 16:05 ET Workstation ID: [id number] Transcribed By: Self Edit Transcribed Date: 03/15/2024 16:03 ET Narrative 03/15/2024 4:05 PM EST CLINICAL: 48 years old, Female, right breast lump at 7:00 5 cm from the nipple felt by referring physician. COMPARISON: None FINDINGS: MAMMOGRAPHY TECHNIQUE: Bilateral MLO and CC views were obtained digitally with 3-D mammogram (digital breast tomosynthesis). Computer-aided detection was utilized in evaluation of this exam (CAD). There is no evidence of suspicious mass or architectural distortion. No worrisome calcifications are evident. There has been no significant change from prior exam(s). BREAST DENSITY: A - [...] year. Mammo Location: [facility], [address] [place], [place], [address], . -------- FINAL REPORT -------- Dictated By: Marilynn Hayward Dictated Date: 03/15/2024 16:03 ET Assigned Physician: Marilynn Hayward Reviewed and Electronically Signed By: Marilynn Hayward Signed Date: 03/15/2024 16:05 ET Workstation ID: [id number] Transcribed By: Self Edit Transcribed Date: 03/15/2024 16:03 ET us Kayode Leal MD IMG BI PROCEDURES Final Result from Last 3 Months or Most Recently Relevant to Health Maintenance Insurance [facility] [employer] Care Teams Home Health Billing Specialist Relationship Specialty Start Date End Date Tim Fontanez MD [address] [place] [address] PCP - General Internal Medicine 07/19/12
== END ==
LOC: HO.SL 11:40
PROVIDERS: PCP Internal Medicine; Visit Provider Hospitalist
DX: G47.33 Obstructive sleep apnea (adult) (pediatric) (principal)
CPT/HCPCS: 95806

== ENCOUNTER → 2025-04-03 13:10 | Outpatient (BNV) | payer OTHER, SELFPAY | PROVIDERS: PCP Internal Medicine; Visit Provider Internal Medicine | DX: G47.33 Obstructive sleep apnea (adult) (pediatric) (principal) | CPT/HCPCS: 95806 ==